=== PATIENT | male | born 1970 | race Caucasian/White ===

== ENCOUNTER 2019-08-11 21:49 | Inpatient (IN) | payer OTHER, SELFPAY ==
[2019-08-11 21:51] VITALS: BP 142/90; PULSE 72; RESP 17; TEMP 39.4; O2SAT 91; BMI 56.7
[2019-08-11 22:12] VITALS: BP 120/76; PULSE 122; RESP 20; O2SAT 88
[2019-08-11 22:13] VITALS: PULSE 120; O2SAT 94
--- NOTE | 2019-08-11 22:15 | ED.RN ---
RN CALLED FOR EKG, NO OLD EKGS IN MUSE
[2019-08-11] MEDS: Ondansetron 4 MG/2 ML Vial IV (22:51)
[2019-08-11] MEDS: Morphine 4 MG/ML Syringe IV (22:51)
[2019-08-11 23:03] LABS: Absolute Lymphocyte Count 1.01 X10^3/uL (0.83-4.51); Absolute Neutrophil Count 13.5 X10^3/uL (2.0-7.7); Basophil# 0.03 X10^3/uL; Basophil% 0.2 % (0-1); Eosinophil# 0.01 X10^3/uL; Eosinophils% 0.1 % (0-5); Hematocrit 41.8 % (40-54); Hemoglobin 14.1 g/dL (13.0-16.5); Lymphocyte # 1.01 X10^3/ul (4.0); Lymphocyte % 6.5 % (19-41); Mean Corp Hgb Conc 33.7 g/dL (32-36); Mean Corpuscular Hgb 28.8 pg (27.0-32.0); Mean Corpuscular Volume 85.3 fL (80-94); Mean Platelet Vol. 9.6 fl (6.2-12.0); Monocyte# 0.91 X10^3/uL; Monocyte% 5.9 % (0-10); NRBC Flagged by Analyzer 0 % (0-5); Neutrophil # 13.51 X10^3/uL (2.7-7.7); Neutrophil % 86.8 % (47-70); Platelet Count 191 K/mm3 (150-450); RBC Distribution Width CV 13.4 % (11.6-14.6); RBC Distribution Width SD 41.9 fl (35.1-43.9); White Blood Count 15.6 K/mm3 (4.4-11.0)
[2019-08-11 23:21] LABS: ALB/GLOB Ratio 0.9 RATIO (0.9-2.4); AST(SGOT) 15 U/L (15-37); Alanine Aminotransfer ALT/SGPT 17 U/L (16-61); Alkaline Phosphatase 72 U/L (45-117); Anion Gap 8 (5-15); BUN 14 mg/dL (7-18); BUN/Creat Ratio 11.4 RATIO (10-20); Calcium,Total 8.1 mg/dL (8.5-10.1); Chloride 102 mmol/L (98-107); Creatinine, Serum 1.23 mg/dL (0.70-1.30); EST Glomerular Filtration Rate 66 mL/min (>60); Est Glom Filt Rate - Afr Amer 80 mL/min (>60); Estimated Creatinine Clearance 77.37 ml/min; Globulin 3.5 g/dL (2.2-4.2); Glucose 108 mg/dL (74-106); Lipase 60 U/L (73-393); Potassium 3.6 mmol/L (3.5-5.1); Protein, Total 6.5 g/dL (6.4-8.2); Sodium Level 137 mmol/L (136-145)
[2019-08-11 23:27] VITALS: BP 142/116; PULSE 116; RESP 20; TEMP 38.2; O2SAT 93
[2019-08-11] MEDS: Acetaminophen 500 MG Tablet 1000 MG PO (23:34)
--- NOTE | 2019-08-11 23:36 | RAD_ITS ---
STUDY: X-RAY CHEST REASON FOR EXAM: Male, 48 years old. Fever. TECHNIQUE: Single AP portable view of the chest. COMPARISON: Prior comparison studies are not available for review at this time. FINDINGS: Cardiac monitoring leads are present. The lungs are expanded. There is right upper lobe and right lower lobe airspace consolidation likely representing pneumonia. There may be small right-sided pleural effusion. Bronchovascular markings are prominent in both lungs. There is mild cardiac enlargement. Normal mediastinum and willard. There is prominence of the pulmonary hilar arteries with peripheral pulmonary vascular congestion. Normal visualized aortic arch and descending thoracic aorta. Normal visualized thoracic spine. Normal visualized ribs, clavicles, and shoulders. There is no demonstrated abnormality of the visualized soft tissue structures of the upper abdomen. RAD/Chest 1 View (Portable) IMPRESSION: 1. Right-sided airspace consolidation likely representing pneumonia. 2. Cardiomegaly and mild pulmonary congestion. Electronically Signed: Rochelle Cooney MD at 0:21 EST , Service support ,
--- NOTE | 2019-08-11 23:38 | ED.DCSUM_ITS ---
- ER Visit Summary Date of Service: 08/11/19 Chief Complaint: Fever, abdominal pain History of Present Illness: The patient is a 48 M presenting with febrile illness and abdominal pain. He states his abdominal pain started around 4 AM this morning when he had a large bowel movement. He states he drank tea for constipation and then had a large bowel movement around 4 AM. He had another loose stool around 8 PM. He states when he had the bowel movements he had diffuse abdominal pain. He denies nausea or vomiting. Denies blood in his stool. He has had fever and chills. He has had mild shortness of breath and cough. Denies other complaints. Physical Examination: Vitals are stable. Temperature 103. Heart rate 120. Alert no acute distress. HEENT exam is unremarkable. Neck is supple. No meningismus Lungs are clear and equal bilaterally. Heart is irregularly irregular Abdomen is soft obese, suprapubic tenderness with no rebound or guarding Extremities are unremarkable. Skin is warm and dry. No focal neurologic deficit. Remainder of exam is unremarkable. Emergency Department Course and Treatment: EKG is A. fib rate of 111. Patient was given IV fluids, Tylenol. He was given morphine, Zofran IV. CBC shows white count 15.6. Chemistry is unremarkable. Total bili 1.6. Lipase is 60. Troponin 0.016. CT abdomen pelvis is pending at this time and will be checked out to the oncoming physician. Disposition: Pending Impression: Febrile illness, abdominal pain, new onset A. fib This note was generated with [employer] dictation software. It may contain incorrect words, spelling, and punctuation that were not noted in review of the chart prior to signing ED Disposition - Plan for ED Patient: Referrals: Guicho Floyd MD [Primary Care Provider] -
--- NOTE | 2019-08-11 23:38 | EKG12_ITS ---
Test Reason : HR Blood Pressure : / mmHG Vent. Rate : 111 BPM Atrial Rate : 110 BPM P-R Int : 000 ms QRS Dur : 090 ms QT Int : 322 ms P-R-T Axes : 000 037 032 degrees QTc Int : 437 ms Atrial fibrillation with rapid ventricular response Abnormal ECG Confirmed by DELMER WEIR, SIGRID ([id number]), film and video editor DEYVI SANTILLAN ([id number]) on 08/17/2019 11:48:38 AM Referred By: JESSICA Confirmed By:NEENA DOWELL MD
[2019-08-12] VITALS (20 sets, daily range): BP systolic 86–120; BP diastolic 39–65; PULSE 75–107; RESP 16–22; TEMP 36.4–38.7; O2SAT 88–98; BMI 56.7
[2019-08-12] MEDS: 0.9% Normal Saline 1,000 ML 999 ML IV ×2 (00:10→01:25)
--- NOTE | 2019-08-12 00:16 | PCM.HP.STD ---
Problem List (1) Atrial fibrillation with RVR Status: Acute (2) Pneumonia Status: Acute History of Present Illness Date of Admission: 08/12/19 Chief Complaint: abdominal pain The patient is a 48 year old M with a significant history of hypertension and bilateral lower extremity edema who presented to the emergency department with persistent excruciating abdominal pain. His abdominal pain is located at his lower abdomen underneath his abdominal fold; into the center. His pain started several hours before presentation. He pain started around 4 AM on the day of presentation. His pain started after having a bowel movement and getting up from the commode. Later his pain improved with adjusting himself in the recliner. Later on in the day of presentation around 4 PM he had another bowel movement and when he stood up from the commode his pain re-occurred. Otherwise he denies any other aggravating factor to the pain. Further he reports a subjective fever with chills and rigors. He has some shortness of breath which he correlates with abdominal pain. Also he has palpitations. In the past when he had a flu or abdominal upset he felt palpitations. At the emergency department patient was found to be in A. fib with RVR. Chest x-ray was remarkable for right-sided airspace consolidation. Abdomen and pelvis CT was remarkable for acute inflammation and diverticulitis involving the sigmoid with some microperforation; as well as bilateral basilar airspace disease. Further, the abdomen and pelvis CT showed free fluid suggesting diarrhea and possible additional infection. Past Medical History Medical History: Medical History (Last Reviewed 08/12/19 @ 04:29 by Shade Candelaria MD) HTN (hypertension) I10 Allergies cephalexin [From Keflex] Allergy (Verified 08/11/19 21:50) Rash Home Medications: Ambulatory Orders Medication Instructions Recorded Amlodipine [Norvasc] 10 mg PO DAILY 08/11/19 Furosemide [Lasix] 40 mg PO DAILY 08/11/19 Lisinopril [Zestril] 40 mg PO DAILY 08/11/19 Surgical History: tonsillectomy Lives: With Family Smoking Status: Never smoker Alcohol: None - *Family History Maternal History Items: Heart Disease Paternal History Items: - - His father and 2 sisters had A. fib. Also he has 2 sisters who has cancer. Review of Systems Constitutional: Reports: Chills, Fever - Subjective. Denies: Weight Change HEENT: Denies: Head Aches, Sinus Congestion, Sinus Drainage Cardiovascular: Denies: Chest Pain, Palpitations Respiratory: Reports: Shortness of Breath. Denies: Cough, Shortness of breath at rest, Sputum production Gastrointestinal: Reports: Abdominal Pain. Denies: Nausea, Vomiting Genitourinary: Denies: Dysuria Musculoskeletal: Denies: Joint Pain, Joint Tenderness Skin: Denies: Rash, Wounds Neurological: Denies: Numbness, Tingling, Focal weakness Psychiatric: Denies: Anxiety, Depression, Homicidal Ideations, Suicidal Ideations Hematologic/ Lymphatic: Denies: Easy Bruising, Easy Bleeding VTE Information - Inpt Only VTE Present on Admission: No VTE Mechan Device Prophylaxis: None VTE Pharm Prophylaxis ordered?: Yes Patient Problems: Active and Suspected Problems (Last Reviewed 08/12/19 @ 02:48 by Shade Candelaria MD) Atrial fibrillation with RVR (Acute) Pneumonia (Acute) - Physical Exam Vitals/I&O's: Vital Signs Temp Pulse Resp BP Pulse Ox 101.6 F H 107 H 22 H 107/62 92 08/12/19 00:11 08/12/19 00:11 08/12/19 00:11 08/12/19 00:11 08/12/19 00:11 Oxygen Flow Rate (L/min) 2 Oxygen Delivery Method Nasal Cannula Weight: 184.5 kg Body Mass Index (BMI) 56.7 General: Alert, Oriented x3, Cooperative, - - Morbidly obese HEENT: Atraumatic, PERRLA, EOMI, Normocephalic Neck: Supple, No JVD, Negative Carotid Bruits Lungs: No rhonchi, No wheeze, Rales - Right lower lung chawla, Tachypneic Cardiovascular: Normal S1, Normal S2, No murmurs, Irregular Rate, Tachycardic Abdomen: Bowel Sounds Present, Soft, Tender Extremities: No edema, Capillary Refill Less than 3 Seconds Skin: No rashes, No breakdown, - - Erythema of the abdominal folds Musculoskeletal: No Tenderness to Palpation of Joints or Extremities Neurological: Cranial nerves II-XII grossly intact Psych/Mental Status: Normal Affect, Appropriate Microbiology Past 72 Hours 08/11/19 23:30 Mucosa - Nose Influenza Types A,B Direct FA ([facility]) - Final Laboratory Results 08/11/19 23:00: WBC 15.6 H, RBC 4.90, Hgb 14.1, Hct 41.8, MCV 85.3, MCH 28.8, MCHC 33.7, RDW Std Deviation 41.9, RDW Coeff of Tg 13.4, Plt Count 191, MPV 9.6, Immature Gran % (Auto) 0.500, Neut % (Auto) 86.8 H, Lymph % (Auto) 6.5 L, [place] % (Auto) 5.9, Eos % (Auto) 0.1, Baso % (Auto) 0.2, Absolute Neuts (auto) 13.5 H, Absolute Lymphs (auto) 1.01, Nucleated RBC % 0 08/11/19 23:00: Sodium 137, Potassium 3.6, Chloride 102, Carbon Dioxide 27.0, Anion Gap 8, BUN 14, Creatinine 1.23, Estim Creat Clear Calc 77.37, Est GFR (MDRD) Af Amer 80, Est GFR (MDRD) Non-Af 66, BUN/Creatinine Ratio 11.4, Glucose 108 H, Calcium 8.1 L, Total Bilirubin 1.60 H, AST 15, ALT 17, Alkaline Phosphatase 72, Troponin I 0.016, Total Protein 6.5, Albumin 3.0 L, Globulin 3.5, Albumin/Globulin Ratio 0.9, Lipase 60 L 08/11/19 23:47: Lactic Acid Pending Current Medications Sodium Chloride () 1,000 mls @ 999 mls/hr IV .Q1H1M ONE Stop: 08/12/19 00:36 Last Admin: 08/12/19 00:10 Dose: 999 mls/hr Documented by: Assessment/Plan All Active Problems (Last Reviewed 08/12/19 @ 02:48 by Shade Candelaria MD) Atrial fibrillation with RVR (Acute) Pneumonia (Acute) The patient is a 48 year old M with a significant history of hypertension and bilateral lower extremity edema who presented to the emergency department with persistent excruciating abdominal pain; subjective fever; chills and shortness of breath and found to have maximal temperature of 101.6F; A. fib with RVR and tachypnea with respiratory rate more than 20; as well as leukocytosis; and with radiographic evidence of a pneumonia, colitis, sigmoid diverticulitis with micro perforation, consistent with sepsis secondary to diverticulitis; colitis and community acquired pneumonia. Sepsis secondary to diverticulitis with microperforation; colitis and community-acquired pneumonia Lactic acid: 1.1 Highest respiratory rate of 22 A. fib with highest ventricular rate of around 122 Blood culture ?2 is pending Chest x-ray: Right sided airspace consolidation likely representing pneumonia. Cardiomegaly and mild pulmonary congestion chest x-ray was independently reviewed. I agree with the radiologist interpretation. Respiratory Gram stain and culture pending Antibiotics: Levaquin and Flagyl was started at the emergency department; continued. Of note patient has an allergy to cephalosporins. IV hydration: Normal saline 2 L bolus was ordered at the emergency department. Legionella antigen screen and Strep antigen ordered Community-acquired pneumonia Levaquin and metronidazole as above. Sigmoid diverticulitis with microperforation; and colitis Levaquin imaging results as above. General surgery consult. Anticipate conservative therapy for now. A. fib with RVR Discussed the case with Dr. Rodríguez, canal equipment maintenance supervisor. IV fluids for now. If rate remains uncontrolled and blood pressure is marginal will consider amiodarone. If rate is uncontrolled and blood pressure cannot tolerate will try Cardizem. With a bolus of 2500 ml HR is controlled. [id number] Score = 1 (hypertension). Daily aspirin ordered. We will get an echocardiogram. Will supplement potassium. Will check magnesium. Check TSH. Trend BMP. Inpatient cardiology consult. Morbid obesity Reportedly he lost about 100 pounds through dieting. Diet exercise discussed. DVT prophylaxis Lovenox 40 mg subcutaneous twice daily for now; adjusted for weight. Code Visit Inpatient E&M: 77942 Init Hosp L3
[2019-08-12 00:22] LABS: Lactic Acid 1.1 mmol/L (0.4-1.9)
[2019-08-12] MEDS: levoFLOXacin IV 750 MG/150 ML BAG 100 MG IV ×2 (00:42→21:46)
--- NOTE | 2019-08-12 01:00 | ED.RN ---
DR RODRIGUES PAGED
--- NOTE | 2019-08-12 01:05 | ED.RN ---
DR JARAMILLO CALLED BACK FOR DR CARMICHAEL
[2019-08-12] MEDS: metroNIDAZOLE 500 MG/100 ML BAG 100 MG IV ×5 (02:37→23:43)
--- NOTE | 2019-08-12 02:47 | ECHOCS_ITS ---
Reason For Study: AFIB-FLUTTER Procedure This was a 2D Doppler, Color Flow transthoracic echocardiogram. The study was technically difficult. Exam performed portable in patient room. Left Ventricle Moderately dilated left ventricle. The estimated ejection fraction is 65 %. Unable to assess diastolic dysfunction due to arrhythmia. No regional wall motion abnormalities noted. Right Ventricle Normal size and thickness. Normal systolic function. Atria The left atrium is severely enlarged. The right atrium is moderately enlarged. Normal atrial septum. Mitral Valve The mitral valve is structurally normal. No prolapse or stenosis seen. Tricuspid Valve Normal tricuspid valve. Unable to estimate RV systolic pressure due to insufficient tricuspid regurgitant envelope. Aortic Valve Normal aortic valve. Trisinus/trileaflet aortic valve. Pulmonic Valve The pulmonic valve is not well visualized. Great Vessels Normal aortic root. Normal arch. Normal inferior vena cava. Pericardium/Pleural No pericardial effusion. Medication Diluted definity 4ml given slow IV push to enhance endocardial definition. MMode/2D Measurements & Calculations LVIDd: 5.9 cm IVSd: 1.0 cm Ao root diam: 3.8 cm LVIDs: 4.1 cm LVPWd: 1.1 cm FS: 30.7 % LAV(MOD-bp): 90.0 ml LVAd ap4: 35.8 cm2 SV(MOD-sp4): 80.0 ml LAV(MOD-bp) Indexed: 30.9 ml/m2 EDV(MOD-sp4): 123.0 ml LAV(MOD-sp2): 89.3 ml EDV(sp4-el): 131.3 ml LAV(MOD-sp4): 88.2 ml LVAs ap4: 19.2 cm2 ESV(MOD-sp4): 43.0 ml ESV(sp4-el): 45.0 ml EF(MOD-sp4): 65.1 % EF(sp4-el): 65.7 % SV(sp4-el): 86.3 ml LA A4 area: 27.6 cm2 LA dimension(2D): 5.4 cm RA A4 area: 23.0 cm2 Doppler Measurements & Calculations MV E max rosaline: 109.0 cm/sec Ao V2 max: 147.1 cm/sec LV V1 max: 113.5 cm/sec Ao max P.9 mmHg LV V1 max P.2 mmHg PA V2 max: 104.0 cm/sec Interpretation Summary Moderately dilated left ventricle. The estimated ejection fraction is 65 %. Unable to assess diastolic dysfunction due to arrhythmia. The left atrium is severely enlarged. The right atrium is moderately enlarged. Unable to estimate RV systolic pressure due to insufficient tricuspid regurgitant envelope. PT appears to be in atrial fibrillation. The study was technically difficult. Contrast injection was performed. There is no comparison study available. Ordering Physician: Shade Candelaria Referring Physician: JETT KELLEY Performed By: Radha Mcmillan RDCS
[2019-08-12] MEDS: Acetaminophen 325 MG Tablet 650 MG PO ×3 (03:32→21:50)
[2019-08-12 05:34] LABS: Absolute Lymphocyte Count 1.34 X10^3/uL (0.83-4.51); Absolute Neutrophil Count 12.5 X10^3/uL (2.0-7.7); Basophil# 0.03 X10^3/uL; Basophil% 0.2 % (0-1); Eosinophil# 0.01 X10^3/uL; Eosinophils% 0.1 % (0-5); Hematocrit 39.9 % (40-54); Lymphocyte # 1.34 X10^3/ul (4.0); Lymphocyte % 8.9 % (19-41); Mean Corp Hgb Conc 32.6 g/dL (32-36); Mean Corpuscular Hgb 28.6 pg (27.0-32.0); Mean Corpuscular Volume 87.9 fL (80-94); Monocyte% 7.3 % (0-10); NRBC Flagged by Analyzer 0 % (0-5); Neutrophil # 12.47 X10^3/uL (2.7-7.7); Neutrophil % 82.8 % (47-70); Platelet Count 168 K/mm3 (150-450); RBC Distribution Width CV 13.6 % (11.6-14.6); RBC Distribution Width SD 43.3 fl (35.1-43.9); Red Blood Count 4.54 M/mm3 (4.6-6.2); White Blood Count 15.1 K/mm3 (4.4-11.0)
[2019-08-12 06:02] LABS: Anion Gap 6 (5-15); BUN 16 mg/dL (7-18); BUN/Creat Ratio 12.5 RATIO (10-20); Calcium,Total 7.4 mg/dL (8.5-10.1); Chloride 104 mmol/L (98-107); Creatinine, Serum 1.28 mg/dL (0.70-1.30); EST Glomerular Filtration Rate 63 mL/min (>60); Est Glom Filt Rate - Afr Amer 77 mL/min (>60); Estimated Creatinine Clearance 74.35 ml/min; Glucose 102 mg/dL (74-106); Magnesium 1.8 mg/dL (1.6-2.6); Potassium 3.6 mmol/L (3.5-5.1); Sodium Level 138 mmol/L (136-145); Thyroid Stim Hormone (TSH) 2.85 uIU/mL (0.358-3.74)
--- NOTE | 2019-08-12 06:10 | CON.PCM_ITS ---
Problem List (1) Perforation of sigmoid colon due to diverticulitis Status: Acute Reason for Consult Date of Consultation: 08/12/19 History of Present Illness: The patient is a 48 year old M who presents to the hospital last evening with acute onset of low abdominal pain. Complains of a sudden onset of low mid abdominal pain that occurred much earlier in the day and presented to the ER late last night. Findings include right middle and lower lobe suspected pneumonia. Fluid-filled bowel. Microperforation on the sigmoid colon felt to be secondary to diverticulitis. Solitary incidental gallstone identified. The patient states he is never had a colonoscopy. He states he is never had previous diverticulitis. He has had previous pneumonias however but None for the past 10 years. He denies tobacco use. Pertinent medical comorbidities include super morbid obesity with a body weight of 406 pounds x 56.7. He has a history of atrial fibrillation with RVR but he is not on home anticoagulation. He denies diabetes States that he still has abdominal discomfort feels like it is very deep-seated low in the abdomen but he thinks is slightly better than when it initially occurred. His laboratory and presentation demonstrate a white count of 15.6 and currently is 15.1. Hemoglobin 13 and hematocrit 39.9. He has a left shift with 82% neutrophils. His BUN is 14 and creatinine 1.23. Lactic acid 1.1. Total bilirubin was 1.6 with remainder of his liver function tests normal Past Medical History Medical History: Medical History (Last Reviewed 08/12/19 @ 04:29 by Shade Candelaria MD) HTN (hypertension) I10 Allergies cephalexin [From Keflex] Allergy (Verified 08/11/19 21:50) Rash Home Medications: Ambulatory Orders Medication Instructions Recorded Amlodipine [Norvasc] 10 mg PO DAILY 08/11/19 Furosemide [Lasix] 40 mg PO DAILY 08/11/19 Lisinopril [Zestril] 40 mg PO DAILY 08/11/19 Surgical History: tonsillectomy Lives: With Family Smoking Status: Never smoker Alcohol: None - *Family History Maternal History Items: Heart Disease Paternal History Items: - - His father and 2 sisters had A. fib. Also he has 2 sisters who has cancer. Review of Systems Constitutional: Denies: Night Sweats HEENT: Denies: Difficulty Swallowing Cardiovascular: Reports: - - Denies any significant shortness of breath. Denies: Chest Pain Gastrointestinal: Reports: Abdominal Pain. Denies: Melena Skin: Reports: - - Chronic bilateral lower extremity swelling Patient Problems: Active and Suspected Problems (Last Reviewed 08/12/19 @ 04:29 by Shade Candelaria MD) Atrial fibrillation with RVR (Acute) Pneumonia (Acute) Perforation of sigmoid colon due to diverticulitis (Acute) - Physical Exam Vitals/I&O's: Vital Signs Temp Pulse Resp BP Pulse Ox 98.8 F 94 18 97/52 L 98 08/12/19 04:15 08/12/19 04:15 08/12/19 04:15 08/12/19 04:15 08/12/19 04:15 Oxygen Flow Rate (L/min) 3 Oxygen Delivery Method Nasal Cannula Weight: 406 lb 8.518 oz Body Mass Index (BMI) 56.7 Intake and Output for Last 24 Hours 08/10/19 08/11/19 08/12/19 23:59 23:59 23:59 Intake Total 2750 / 2750 Balance 2750 / 2750 General: Alert, Oriented x3, Cooperative, No apparent distress HEENT: Atraumatic Oral: Moist Mucosa Lungs: Clear to auscultation Cardiovascular: Regular rate, Regular Rhythm Abdomen: Soft, Hypoactive Bowel Sounds - Unable to determine any internal abdominal organs secondary to body habitus. No mass or rebound or guarding but clinically very difficult examination Skin: - - Chronic bilateral extremity venous stasis changes with nonpitting edema and hyperpigmentation Neurological: - - Cognition intact Psych/Mental Status: Normal Affect Microbiology Past 72 Hours 08/11/19 23:30 Mucosa - Nose Influenza Types A,B Direct FA ([facility]) - Final Laboratory Results 08/11/19 23:00: WBC 15.6 H, RBC 4.90, Hgb 14.1, Hct 41.8, MCV 85.3, MCH 28.8, MCHC 33.7, RDW Std Deviation 41.9, RDW Coeff of Tg 13.4, Plt Count 191, MPV 9.6, Immature Gran % (Auto) 0.500, Neut % (Auto) 86.8 H, Lymph % (Auto) 6.5 L, [place] % (Auto) 5.9, Eos % (Auto) 0.1, Baso % (Auto) 0.2, Absolute Neuts (auto) 13.5 H, Absolute Lymphs (auto) 1.01, Nucleated RBC % 0 08/11/19 23:00: Sodium 137, Potassium 3.6, Chloride 102, Carbon Dioxide 27.0, Anion Gap 8, BUN 14, Creatinine 1.23, Estim Creat Clear Calc 77.37, Est GFR (MD RD) Af Amer 80, Est GFR (MDRD) Non-Af 66, BUN/Creatinine Ratio 11.4, Glucose 108 H, Calcium 8.1 L, Total Bilirubin 1.60 H, AST 15, ALT 17, Alkaline Phosphatase 72, Troponin I 0.016, Total Protein 6.5, Albumin 3.0 L, Globulin 3.5, Albumin/Globulin Ratio 0.9, Lipase 60 L 08/11/19 23:47: Lactic Acid 1.1 08/12/19 04:55: WBC 15.1 H, RBC 4.54 L, Hgb 13.0, Hct 39.9 L, MCV 87.9, MCH 28.6, MCHC 32.6, RDW Std Deviation 43.3, RDW Coeff of Tg 13.6, Plt Count 168, MPV 10.0, Immature Gran % (Auto) 0.700, Neut % (Auto) 82.8 H, Lymph % (Auto) 8.9 L, [place] % (Auto) 7.3, Eos % (Auto) 0.1, Baso % (Auto) 0.2, Absolute Neuts (auto) 12.5 H, Absolute Lymphs (auto) 1.34, Nucleated RBC % 0 08/12/19 04:55: Sodium 138, Potassium 3.6, Chloride 104, Carbon Dioxide 28.0, Anion Gap 6, BUN 16, Creatinine 1.28, Estim Creat Clear Calc 74.35, Est GFR (MDRD) Af Amer 77, Est GFR (MDRD) Non-Af 63, BUN/Creatinine Ratio 12.5, Glucose 102, Calcium 7.4 L, Magnesium 1.8, TSH 2.85 Current Medications Acetaminophen (Tylenol) 650 mg PO Q6H PRN PRN PRN Reason: Pain Score 1-3/Temp > 100.7 F Last Admin: 08/12/19 03:32 Dose: 650 mg Documented by: Amlodipine Besylate (Norvasc) 10 mg PO DAILY [facility] Aspirin (Aspirin, Baby) 81 mg PO DAILY@0800 [facility] Enoxaparin Sodium (Lovenox) 40 mg SC BID [facility] Glucagon () 1 mg IM .X1 PRN PRN Reason: Hypoglycemia Guaifenesin (Mucinex) 1,200 mg PO BID [facility] Levofloxacin (Levaquin Iv) 750 mg in 150 mls @ 100 mls/hr IV Q24@2200 [facility] Metronidazole (Flagyl) 500 mg in 100 mls @ 100 mls/hr IV Q8 [facility] Dextrose (Dextrose 10%-Water) 250 mls @ 999 mls/hr IV .Q16M PRN; Protocol PRN Reason: HYPOGLYCEMIA Lisinopril (Zestril) 40 mg PO DAILY [facility] Morphine Sulfate () 4 mg IV Q3H PRN PRN PRN Reason: Pain Score 6-10/10 Nystatin (Mycostatin) 1 applic TOPICAL BID [facility]; Protocol Ondansetron HCl (Zofran) 4 mg IV Q8H PRN PRN PRN Reason: NAUSEA/VOMITING Oxycodone HCl (Oxyir) 10 mg PO Q4H PRN PRN PRN Reason: Pain Score 4-5/10 Assessment/Plan All Active Problems (Last Reviewed 08/12/19 @ 04:29 by Shade Candelaria MD) Atrial fibrillation with RVR (Acute) Pneumonia (Acute) Perforation of sigmoid colon due to diverticulitis (Acute) 48-year-old gentleman with findings suggested fluid-filled bowel and acute sigmoid diverticular perforation with incidental gallstone. His body habitus of 406 pounds with a BMI of 56.7 precludes thoughts of operative intervention. I would recommend patient mobilization and incentive spirometry. I will continue strict bowel rest. I am not proposing at this moment any type of endoscopic evaluation for concern of worsening his current pattern. I would agree with continuing antibiotics with weight-based dosing. If he would require urgent abdominal surgery this may need to be performed at a [facility]ariat[facility] center of excellence. We will follow with you. Oscar Michael M.D., F.A.C.S.
--- NOTE | 2019-08-12 08:51 | CON.PCM_ITS ---
Problem List (1) Atrial fibrillation with RVR Status: Acute Reason for Consult Date of Consultation: 08/12/19 Reason for Consultation: Atrial fibrillation with RVR History of Present Illness: The patient is a 48 year old M nondiabetic, morbidly obese, with a history of hypertension, unknown cholesterol, denies obstructive sleep apnea, possibly with undiagnosed atrial fibrillation based upon his history, who presents to the em ergency room with severe middle and left lower quadrant abdominal pain. A CT scan was obtained in the ER which showed the following results: 1. Acute inflammation and diverticulitis involving the sigmoid colon. There are signs of microperforation with tiny collections of gas adjacent to the abnormal sigmoid colon. 2. No CT evidence for abscess. 3. Fluid-filled colon suggesting diarrhea and possible additional infection. 4. Cholelithiasis. 5. Bilateral basilar airspace disease possibly representing pneumonia In addition the patient was found to be in atrial fibrillation with rapid ventri cular response and mildly hypotensive. Patient was given IV fluids, and his heart rate gradually improved. Upon further history the patient states that he is aware when he goes in and out of atrial fibrillation, and has had episodes of these sensations for a number of years but never sought medical attention. He denies any previous cardiac catheterization, abnormal stress test, chest pain, angina or shortness of breath either previous to or during his atrial fibrillation. Patient feels much better with his heart going slower, and remains in atrial fibrillation by telemetry. His EKG showed atrial fibrillation with rapid ventricular response, no acute changes. Troponin is negative x1. Echocardiogram is pending. He is currently hemodynamically stable. [] Past Medical History Allergies/Adverse Reactions: Allergies cephalexin [From Keflex] Allergy (Verified 08/11/19 21:50) Rash Home Medications: Ambulatory Orders Medication Instructions Recorded Amlodipine [Norvasc] 10 mg PO DAILY 08/11/19 Furosemide [Lasix] 40 mg PO DAILY 08/11/19 Lisinopril [Zestril] 40 mg PO DAILY 08/11/19 Surgical History: tonsillectomy - *Family History Maternal History Items: Heart Disease, Hypertension Paternal History Items: - - His father and 2 sisters had A. fib. Also he has 2 sisters who has cancer. Lives: With Family Smoking Status: Never smoker Alcohol: None Review of Systems - Review of Systems General: Denies: Fever, Night Sweats, Fatigue Cardiovascular: Denies: Chest Discomfort, Shortness of Breath, Orthopnea, PND, Peripheral Edema, Palpitations, Lightheadedness, Dizziness, Near Syncope, Syncope Respiratory: Denies: Cough, Sputum Production, Hemoptysis Gastrointestinal: Reports: Abdominal Discomfort. Denies: Hematemesis, Hematochezia, Melena Genitourinary: Denies: Dysuria, Hematuria Skin: Denies: Rash Subjectve: Patient laying in bed, no acute distress. Objective: Vital Signs Temp Pulse Resp BP Pulse Ox 98.5 F 80 18 108/61 92 08/12/19 06:15 08/12/19 06:50 08/12/19 06:15 08/12/19 06:15 08/12/19 07:34 Oxygen Flow Rate (L/min) 2 Oxygen Delivery Method Nasal Cannula Weight: 406 lb 8.518 oz Body Mass Index (BMI) 56.7 Intake and Output for Last 24 Hours 08/10/19 08/11/19 08/12/19 23:59 23:59 23:59 Intake Total 2850 / 2850 Output Total 0 / 0 Balance 2850 / 2850 General: Awake, Alert, Oriented x 3 HEENT: PERRL, EOMI, Sclera Non Icteric Neck: Supple, Good ROM, No Lymph Node Enlargement Lungs: Clear to auscultation Cardiovascular: Irregular Rhythm, Normal S1, Normal S2, No Murmurs, No Rubs, No Gallops Vascular: No Carotid Bruits, Normal Femoral Pulses, Normal Radial Pulses, Normal Dorsalis Pedal Pulse, Normal Posterior Tibial Pulses Abdomen: Bowel Sounds Present, Soft, Non Tender, No HSM, No Organomegaly Extremities: No Cyanosis, No Clubbing, No edema Neurological: No Focal Motor or Sensory Deficit 08/11/19 23:00: WBC 15.6 H, RBC 4.90, Hgb 14.1, Hct 41.8, MCV 85.3, MCH 28.8, MCHC 33.7, Plt Count 191, MPV 9.6, Immature Gran % (Auto) 0.500, Neut % (Auto) 86.8 H, Lymph % (Auto) 6.5 L, [place] % (Auto) 5.9, Eos % (Auto) 0.1, Baso % (Auto) 0.2, Absolute Neuts (auto) 13.5 H, Nucleated RBC % 0 08/11/19 23:00: Sodium 137, Potassium 3.6, Chloride 102, Carbon Dioxide 27.0, Anion Gap 8, BUN 14, Creatinine 1.23, Est GFR (MDRD) Af Amer 80, Est GFR (MDRD) Non-Af 66, BUN/Creatinine Ratio 11.4, Glucose 108 H, Calcium 8.1 L, Total Bilirubin 1.60 H, Troponin I 0.016 08/11/19 23:47: Lactic Acid 1.1 08/12/19 04:55: WBC 15.1 H, RBC 4.54 L, Hgb 13.0, Hct 39.9 L, MCV 87.9, MCH 28.6, MCHC 32.6, Plt Count 168, MPV 10.0, Immature Gran % (Auto) 0.700, Neut % (Auto) 82.8 H, Lymph % (Auto) 8.9 L, [place] % (Auto) 7.3, Eos % (Auto) 0.1, Baso % (Auto) 0.2, Absolute Neuts (auto) 12.5 H, Nucleated RBC % 0 08/12/19 04:55: Sodium 138, Potassium 3.6, Chloride 104, Carbon Dioxide 28.0, Anion Gap 6, BUN 16, Creatinine 1.28, Est GFR (MDRD) Af Amer 77, Est GFR (MDRD) Non-Af 63, BUN/Creatinine Ratio 12.5, Glucose 102, Calcium 7.4 L, Magnesium 1.8 Rhythm: EKG: As above ECHO: Pending Stress Test: Cardiac Cath: PCI: CT Surgery: Holter monitor: EPS: PPM: CXR: Chest CT Scan: Assessment/Plan 1. Atrial fibrillation: The patient's heart rate is fairly well controlled with fluid rehydration as of this time. Patient states that he has had what he feels is palpitations in the past which may have been intermittent atrial fibrillation although he has never been officially diagnosed. His atrial fibrillation may have been exacerbated by his abdominal discomfort, and diverticular disease. I would not recommend full dose IV heparin at this time given a possibility of a microperforation on his CT scan. Patient's heart rate appears to be better controlled after IV fluid resuscitation however I would discontinue his amlodipine and switch him to Cardizem CD 180 mg p.o. daily for heart rate control. Should the patient have hypotension, as a result of his Cardizem or antihypertensive therapy, he may benefit from IV amiodarone therapy for heart rate control and possible chemical cardioversion. In addition I recommended he obtain a 2D echo with Doppler to determine his LV function and pulmonary pressures. If this is normal, and if his second troponin is negative, I would then recommend a dobutamine echocardiogram for cardiac risk stratification given his atrial fibrillation, age, hypertension, and possible need for abdominal surgery. If his stress test is grossly abnormal, he may require a diagnostic coronary angiogram at some point. In addition I recommend checking his TSH and T4. 2. Obesity: The patient may have undiagnosed obstructive sleep apnea which can be worked up as an outpatient. 3. Would recommend obtaining a fasting lipid profile to complete his work-up. 4. Thank you very much for the opportunity to participate in the cardiac care of your patient. Consultation time took place between 730 and 8 AM. Code Visit Inpatient E&M: 93840 Init Hosp L2
--- NOTE | 2019-08-12 08:57 | STEWCON_ITS ---
Reason For Study: Atrial Fibrillation Stress Results Protocol: Dobutamine Stress Echo With Definity Maximum Predicted HR: 171 bpm Target HR: 145 bpm % Maximum Predicted HR: 94 % DurationHeart Rate Stage (mm:ss) (bpm) BP Comment Baseline 100 130/74No Chest Pain; 4.5 ML Diluted Definity Given DSE 10 MCG 3:00 139 144/73No Chest Pain DSE 20 MCG 1:42 160 141/85No Chest Pain Recovery 108 133/82No Chest Pain Stress Duration: 4:42 mm:ss Maximum Stress HR: 160 bpm METS: 1 Baseline Echocardiogram Findings The estimated ejection fraction is 65 %. Stress Echo Wall motion Data Resting WM Intermediate WM Stress WM Resting Wall Motion Wall Motion Stress No regional wall motion No regional wall motion abnormalities noted. abnormalities noted. EKG Data Atrial fibrillation with controlled ventricular response. The patient was titrated from 10 mcg to a maximum of 20 mcg of dobutamine during the stress. The maximum heart rate attained was 164 beats per minute. This was 95% of maximum predicted heart rate. During dobutamine infusion, there were no ST or T wave changes noted to suggest ischemia. No clinical angina was noted. Interpretation Summary The estimated ejection fraction is 65 %. Normal, adequate, dobutamine echocardiogram. Negative for ischemia by EKG and echocardiographic criteria. No anginal symptoms noted. Baseline atrial fibrillation with controlled ventricular response with rare PVCs during infusion which is a nonspecific finding. Test terminated due to the attainment of target heart rate. Final LVEF is 75%. Decreased sensitivity due to poor echo windows requiring Definity agent. Test patient tolerated the procedure well. No complications. The study was technically difficult. Contrast injection was performed. Ordering Physician: Earl Rodríguez Referring Physician: Guicho Floyd Performed By: Radha Mcmillan RDCS
[2019-08-12] MEDS: Lisinopril 40 MG Tablet PO (09:23)
[2019-08-12 10:23] LABS: Bacteria 0 SEEN /hpf (None Seen); Mucous, Urine 0 SEEN /hpf (<or=2+); Red Blood Cells-Urine 0 SEEN /hpf (0-5)
[2019-08-12 10:25] LABS: Color, Urine Amber (Yellow); Glucose, Dipstick Normal (Normal); Ketone-Dipstick 5 mg/dl (Negative); Leukocyte Esterase-Dipstick 25 /ul (Negative); Nitrite-Dipstick Positive (Negative); Occult Blood-Urine Negative /ul (Negative); Protein-Dipstick 30 mg/dl (Negative); Specific Gravity, Urine 1.015 (1.002-1.030); Urine Clarity Sl. Cloudy (Clear); Urine Urobilinogen 4 mg/dl (Normal)
--- NOTE | 2019-08-12 10:26 | PCM.PN.HOSP ---
Patient Problems: Active and Suspected Problems (Last Reviewed 08/12/19 @ 04:29 by Shade Candelaria MD) Atrial fibrillation with RVR (Acute) Pneumonia (Acute) Perforation of sigmoid colon due to diverticulitis (Acute) Subjective: Patient seen and examined. He was admitted with a complaint of lower abdominal pain. He was found to have. CT of the abdomen and pelvis diverticulitis involving the sigmoid colon with some microperforation. He also had right-sided airspace consolidation on chest x-ray and CT showed bilateral basilar airspace disease. He has been managed for this due to diverticulitis with microperforation and community-acquired pneumonia. He feels better today. Pain has improved. He denies any fever or chills, cough or chest pain, palpitation, dizziness, diarrhea vomiting. Review of systems otherwise negative. Of note, he also had A. 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 Tachycardia has now resolved and heart rate is down to the 80s. Vitals/I&O's: Vital Signs Temp Pulse Resp BP Pulse Ox 98.5 F 80 18 108/61 92 08/12/19 06:15 08/12/19 06:50 08/12/19 06:15 08/12/19 06:15 08/12/19 07:34 Oxygen Flow Rate (L/min) 2 Oxygen Delivery Method Nasal Cannula Weight: 406 lb 8.518 oz Body Mass Index (BMI) 56.7 Intake and Output for Last 24 Hours 08/10/19 08/11/19 08/12/19 23:59 23:59 23:59 Intake Total 2950 / 2950 Output Total 0 / 0 Balance 2950 / 2950 General: Alert, Oriented x3, Cooperative, No apparent distress, Non-Cooperative - super morbid obesity HEENT: Atraumatic, PERRLA, EOMI, Normocephalic Oral: Dry Mucosa Neck: Supple, No JVD, Negative Carotid Bruits Lungs: Clear to auscultation, Normal air movement, No rhonchi, No wheeze Cardiovascular: Regular rate, Regular Rhythm, Normal S1, Normal S2, No murmurs Abdomen: Bowel Sounds Present, Soft, Non Tender, Non-Distended, No Hepato-splenomegaly, Obese Extremities: No clubbing, No cyanosis, No edema, Capillary Refill Less than 3 Seconds Skin: No rashes, No breakdown Musculoskeletal: No Tenderness to Palpation of Joints or Extremities, No Muscle Wasting Lymphatic: No Cervical, Supraclavicular, or Inguinal Adenopathy Neurological: Cranial nerves II-XII grossly intact, Neuro grossly intact, Motor Exam 5/5 strength throughout Psych/Mental Status: Normal Affect, Appropriate, Alert and oriented to time, place, person, mood and affect Microbiology Past 72 Hours 08/11/19 23:30 Mucosa - Nose Influenza Types A,B Direct FA ([facility]ALL) - Final Laboratory Results 08/11/19 23:00: WBC 15.6 H, RBC 4.90, Hgb 14.1, Hct 41.8, MCV 85.3, MCH 28.8, MCHC 33.7, RDW Std Deviation 41.9, RDW Coeff of Tg 13.4, Plt Count 191, MPV 9.6, Immature Gran % (Auto) 0.500, Neut % (Auto) 86.8 H, Lymph % (Auto) 6.5 L, [place] % (Auto) 5.9, Eos % (Auto) 0.1, Baso % (Auto) 0.2, Absolute Neuts (auto) 13.5 H, Absolute Lymphs (auto) 1.01, Nucleated RBC % 0 08/11/19 23:00: Sodium 137, Potassium 3.6, Chloride 102, Carbon Dioxide 27.0, Anion Gap 8, BUN 14, Creatinine 1.23, Estim Creat Clear Calc 77.37, Est GFR (MDRD) Af Amer 80, Est GFR (MDRD) Non-Af 66, BUN/Creatinine Ratio 11.4, Glucose 108 H, Calcium 8.1 L, Total Bilirubin 1.60 H, AST 15, ALT 17, Alkaline Phosphatase 72, Troponin I 0.016, Total Protein 6.5, Albumin 3.0 L, Globulin 3.5, Albumin/Globulin Ratio 0.9, Lipase 60 L 08/11/19 23:47: Lactic Acid 1.1 08/12/19 04:55: WBC 15.1 H, RBC 4.54 L, Hgb 13.0, Hct 39.9 L, MCV 87.9, MCH 28.6, MCHC 32.6, RDW Std Deviation 43.3, RDW Coeff of Tg 13.6, Plt Count 168, MPV 10.0, Immature Gran % (Auto) 0.700, Neut % (Auto) 82.8 H, Lymph % (Auto) 8.9 L, [place] % (Auto) 7.3, Eos % (Auto) 0.1, Baso % (Auto) 0.2, Absolute Neuts (auto) 12.5 H, Absolute Lymphs (auto) 1.34, Nucleated RBC % 0 08/12/19 04:55: Sodium 138, Potassium 3.6, Chloride 104, Carbon Dioxide 28.0, Anion Gap 6, BUN 16, Creatinine 1.28, Estim Creat Clear Calc 74.35, Est GFR (MDRD) Af Amer 77, Est GFR (MDRD) Non-Af 63, BUN/Creatinine Ratio 12.5, Glucose 102, Calcium 7.4 L, Magnesium 1.8, TSH 2.85 08/12/19 04:55: Troponin I < 0.015 08/12/19 10:15: Urine Color Pending, Urine Clarity Pending, Urine pH Pending, Ur Specific [place] Pending, Urine Protein Pending, Urine Glucose (UA) Pending, Urine Ketones Pending, Urine Occult Blood Pending, Urine Nitrite Pending, Urine Bilirubin Pending, Urine Urobilinogen Pending, Ur Leukocyte Esterase Pending, Urine RBC Pending, Urine WBC Pending, Ur Squamous Epith Cells Pending, Urine Bacteria Pending, Urine Mucus Pending Diagnostic Data Chest X-Ray 08/11/19 23:36 IMPRESSION: 1. Right-sided airspace consolidation likely representing pneumonia. 2. Cardiomegaly and mild pulmonary congestion. Electronically Signed: Rochelle Cooney MD at 0:21 EST , Service support , Abdomen/Pelvis CT 08/12/19 22:41 IMPRESSION: 1. Acute inflammation and diverticulitis involving the sigmoid colon. There are signs of microperforation with tiny collections of gas adjacent to the abnormal sigmoid colon. 2. No CT evidence for abscess. 3. Fluid-filled colon suggesting diarrhea and possible additional infection. 4. Cholelithiasis. 5. Bilateral basilar airspace disease possibly representing pneumonia. N.B. : The above information has been verbally conveyed by Rochelle Cooney MD to Dr. Katlyn MD, on 08/12/2019 00:56:01 (ET). Electronically Signed: Rochelle Cooney MD at 0:58 EST , Service support , ADDENDUM: 08/12/19 0105 IMPRESSION: 1. Acute inflammation and diverticulitis involving the sigmoid colon. There are signs of microperforation with tiny collections of gas adjacent to the abnormal sigmoid colon. 2. No CT evidence for abscess. 3. Fluid-filled colon suggesting diarrhea and possible additional infection. 4. Cholelithiasis. 5. Bilateral basilar airspace disease possibly representing pneumonia. N.B. : The above information has been verbally conveyed by Rochelle Cooney MD to Dr. Katlyn MD, on 08/12/2019 00:56:01 (ET). Electronically Signed: Rochelle Cooney MD at 0:58 EST , Service support , Current Medications Acetaminophen (Tylenol) 650 mg PO Q6H PRN PRN PRN Reason: Pain Score 1-3/Temp > 100.7 F Last Admin: 08/12/19 03:32 Dose: 650 mg Documented by: Aspirin (Aspirin, Baby) 81 mg PO DAILY@0800 [facility] Diltiazem HCl (Cardizem Cd) 180 mg PO DAILY [facility] Enoxaparin Sodium (Lovenox) 40 mg SC BID [facility] Glucagon () 1 mg IM .X1 PRN PRN Reason: Hypoglycemia Guaifenesin (Mucinex) 1,200 mg PO BID [facility] Levofloxacin (Levaquin Iv) 750 mg in 150 mls @ 100 mls/hr IV Q24@2200 [facility] Dextrose (Dextrose 10%-Water) 250 mls @ 999 mls/hr IV .Q16M PRN; Protocol PRN Reason: HYPOGLYCEMIA Metronidazole (Flagyl) 500 mg in 100 mls @ 100 mls/hr IV Q6 [facility] Last Infusion: 08/12/19 09:13 Dose: Infused Documented by: Lisinopril (Zestril) 40 mg PO DAILY [facility] Last Admin: 08/12/19 09:23 Dose: 40 mg Documented by: Morphine Sulfate () 4 mg IV Q3H PRN PRN PRN Reason: Pain Score 6-10/10 Nystatin (Mycostatin) 1 applic TOPICAL BID BOSSMAN; Protocol Ondansetron HCl (Zofran) 4 mg IV Q8H PRN PRN PRN Reason: NAUSEA/VOMITING Oxycodone HCl (Oxyir) 10 mg PO Q4H PRN PRN PRN Reason: Pain Score 4-5/10 STROKE Vital Signs/Narrative: Vital Signs Pulse Pulse Ox 08/12/19 07:34 92 08/12/19 06:50 80 Medical Necessity - Tobacco Use Smoking Status: Never smoker Assessment/Plan All Active Problems (Last Reviewed 08/12/19 @ 04:29 by Shade Candelaria MD) Atrial fibrillation with RVR (Acute) Pneumonia (Acute) Perforation of sigmoid colon due to diverticulitis (Acute) 1. Sepsis due to diverticulitis with microperforation and community acquired pneumonia SIRS criteria is 1- leucocytosis on IV levaquin and flagyl on IVF NS wbc is 15.1 today general surgery on board currently NPO for strict bowel rest per general surgery, his body habitus of 406 pounds nad BMI of 56.7 precludes thoughts of operative intervention. continue IV antibiotics per general surgery, if he needs urgent abdominal surgery, this may need to be performed at a [facility] of [facility] 2. Community-acquired pneumonia: Chest x-ray showed right-sided airspace disease likely representing pneumonia. On IV Levaquin which will cover pneumonia. Patient has an allergy to cephalosporins. blood cultures are pending, urine cultures also pending. urine for strep and Legionella pending. Influenza screen was negative. 3. Diverticulitis with microperforation: as under 1 4. AFib with RVR now rate and rhythm controlled. cardiology on board- recommend to stop amlodipine and switch him to cardizem CD 180mg daily fo rheart rate control. to get 2D echo and if it is normal, to get dobutamine stress echocardiogram. will check TSH CHADVASC score is 1- hypertension 5.Morbid obesity He has lost about 100 pounds through dieting. Counseled on DASH diet. At risk for sleep apnea. Will benefit from follow-up with pulmonology on outpatient basis. DVT prophylaxis: lovenox sc 40mg bid, adjusted for weight. Code status: full code Addendum(2:14pm): patient remained febrile, with temperature going up to 101F. HE also had low blood pressure, wtih BP going down to 80s systolic. I think patient will benefit from IV antibiotics with broader coverage. Patient has allergy to Keflex, so I cannot add on Zosyn because of cross-reactivity. Will consult ID. Code Visit Inpatient E&M: 52409 Subs Hosp L3
[2019-08-12 10:28] LABS: Urine Bilirubin Dipstick 1 mg/dL (Negative)
[2019-08-12] MEDS: dilTIAZem CD 180 MG Capsule PO (10:36)
[2019-08-12] MEDS: Aspirin 81 MG TAB.CHEW PO (10:36)
[2019-08-12] MEDS: guaiFENesin 1,200 MG Tablet 1200 MG PO ×2 (10:37→21:51)
[2019-08-12] MEDS: Nystatin Ointment 1 APPLIC TOPICAL (10:37)
[2019-08-12 10:47] LABS: Squamous Epithelial Cells - UA 0-5 SEEN /hpf (0-5); White Blood Cells 0-5 SEEN /hpf (0-5)
--- NOTE | 2019-08-12 10:54 | CASEMGMT ---
Assessment- SW completed assessment with patient. Living situation- Patient lives with his in a 2 story home with entry steps. PCP: Dr Guicho Floyd at [facility] in [place] [phone] Specialists: None Pharmacy: [facility] in [place], [place] [phone] DME: [employer] ADL's/IADL's: Patient is normally independent in all activities of daily living. Past SNF/rehab: None Past HH: None LW: Patient was not sure if he had them. POA: Patient was not sure if he had them Plan: At this time patient is independent in all activities of daily living. Patient does not anticipate any d/c needs. SW/RN CM will follow for O2 or prescription assistance needs if applicable at time of d/c. Staci FLORES STE[employer] BOX TOE INSERTER
[2019-08-12] MEDS: 0.9% Normal Saline 1,000 ML 150 ML IV ×2 (11:18→20:14)
--- NOTE | 2019-08-12 11:18 | CASEMGMT ---
GAIL ESPINOZA NOTE: Per website research: Bariatric Surgery Centers include: [facility], [facility], [facility], and [facility]. Rissa NAJERA RN CM
[2019-08-12] MEDS: Enoxaparin 40 MG/0.4 ML Syringe SC ×2 (14:05→21:51)
--- NOTE | 2019-08-12 14:24 | CHAPLAIN ---
Type of Pastoral Visit _x__ Initial Visit ___ Follow-up Visit ___ On-call Visit ___ General Patient Visit ___ Spiritual Assessment ___ Family Conference ___ Bereavement ___ Rapid Response ___ Code Blue ___ Other (describe below) Pastoral Care Referral From _x__ Patient ___ Family ___ Nurse ___ Physician ___ [place] ___ Retail Merchandising Specialist ___ Other (describe below) Sacrament/Intervention _x__ Active listening ___ Anointing ___ Methodist ___ Bereavement ___ Communion _x__ Sonja exploration ___ ___ Life review _x__ Prayer ___ Reconciliation ___ Sacrament of Sick _x__ Supportive presence ___ Wedding ___ Other (describe below) Pastoral Comments
--- NOTE | 2019-08-12 17:25 | PCM.HP.ID ---
Reason for Consult: diverticulitis Consulted by: Dr. Glass History of Present Illness: The patient is a 48 year old M who presented with sudden onset of severe lower middle abd pain. Had some associated nausea, diaphoresis. No diarrhea, no blood in stool. Developed fever, chills. Pain was stabbing. Denies any cough or SOB, no sputum. Came to ED, fever to 103. Admitted on levaquin and flagyl for diverticulitis. Surgery consulted. Overall feeling much better this afternoon, pain nearly gone. Full ROS performed and neg except as noted above. - Medical History Surgical History: htn Allergies/Adverse Reactions: Allergies cephalexin [From Keflex] Allergy (Verified 08/11/19 21:50) Rash Home Medications: Ambulatory Orders Medication Instructions Recorded Amlodipine [Norvasc] 10 mg PO DAILY 08/11/19 Furosemide [Lasix] 40 mg PO DAILY 08/11/19 Lisinopril [Zestril] 40 mg PO DAILY 08/11/19 - Social History SMOKING STATUS:: Never smoker Vital Signs Temp Pulse Resp BP Pulse Ox 99.1 F 75 20 H 105/63 94 08/12/19 15:32 08/12/19 15:32 08/12/19 15:32 08/12/19 15:32 08/12/19 15:32 Oxygen Flow Rate (L/min) 3 Oxygen Delivery Method Nasal Cannula Weight: 184.4 kg Body Mass Index (BMI) 56.7 Microbiology Past 72 Hours 08/12/19 10:15 Streptococcus pneumoniae Antigen (M - Final Urine, Clean Catch 08/12/19 10:15 Legionella Antigen - Final Urine, Clean Catch 08/11/19 23:30 Influenza Types A,B Direct FA (RANDALL) - Final Mucosa - Nose Laboratory Tests Past 24 Hrs 08/11/19 08/11/19 08/11/19 23:00 23:00 23:47 WBC 15.6 H RBC 4.90 Hgb 14.1 Hct 41.8 MCV 85.3 MCH 28.8 MCHC 33.7 RDW Std Deviation 41.9 RDW Coeff of Tg 13.4 Plt Count 191 MPV 9.6 Immature Gran % (Auto) 0.500 Neut % (Auto) 86.8 H Lymph % (Auto) 6.5 L Fisher % (Auto) 5.9 Eos % (Auto) 0.1 Baso % (Auto) 0.2 Absolute Neuts (auto) 13.5 H Absolute Lymphs (auto) 1.01 Nucleated RBC % 0 Sodium 137 Potassium 3.6 Chloride 102 Carbon Dioxide 27.0 Anion Gap 8 BUN 14 Creatinine 1.23 Estim Creat Clear Calc 77.37 Est GFR (MDRD) Af Amer 80 Est GFR (MDRD) Non-Af 66 BUN/Creatinine Ratio 11.4 Glucose 108 H Lactic Acid 1.1 Calcium 8.1 L Magnesium Total Bilirubin 1.60 H AST 15 ALT 17 Alkaline Phosphatase 72 Troponin I 0.016 Total Protein 6.5 Albumin 3.0 L Globulin 3.5 Albumin/Globulin Ratio 0.9 Lipase 60 L TSH Urine Color Urine Clarity Urine pH Ur Specific [place] Urine Protein Urine Glucose (UA) Urine Ketones Urine Occult Blood Urine Nitrite Urine Bilirubin Urine Urobilinogen Ur Leukocyte Esterase Urine RBC Urine WBC Ur Squamous Epith Cells Urine Bacteria Urine Mucus 08/12/19 08/12/19 08/12/19 04:55 04:55 04:55 WBC 15.1 H RBC 4.54 L Hgb 13.0 Hct 39.9 L MCV 87.9 MCH 28.6 MCHC 32.6 RDW Std Deviation 43.3 RDW Coeff of Tg 13.6 Plt Count 168 MPV 10.0 Immature Gran % (Auto) 0.700 Neut % (Auto) 82.8 H Lymph % (Auto) 8.9 L Fisher % (Auto) 7.3 Eos % (Auto) 0.1 Baso % (Auto) 0.2 Absolute Neuts (auto) 12.5 H Absolute Lymphs (auto) 1.34 Nucleated RBC % 0 Sodium 138 Potassium 3.6 Chloride 104 Carbon Dioxide 28.0 Anion Gap 6 BUN 16 Creatinine 1.28 Estim Creat Clear Calc 74.35 Est GFR (MDRD) Af Amer 77 Est GFR (MDRD) Non-Af 63 BUN/Creatinine Ratio 12.5 Glucose 102 Lactic Acid Calcium 7.4 L Magnesium 1.8 Total Bilirubin AST ALT Alkaline Phosphatase Troponin I < 0.015 Total Protein Albumin Globulin Albumin/Globulin Ratio Lipase TSH 2.85 Urine Color Urine Clarity Urine pH Ur Specific [place] Urine Protein Urine Glucose (UA) Urine Ketones Urine Occult Blood Urine Nitrite Urine Bilirubin Urine Urobilinogen Ur Leukocyte Esterase Urine RBC Urine WBC Ur Squamous Epith Cells Urine Bacteria Urine Mucus 08/12/19 10:15 WBC RBC Hgb Hct MCV MCH MCHC RDW Std Deviation RDW Coeff of Tg Plt Count MPV Immature Gran % (Auto) Neut % (Auto) Lymph % (Auto) Fisher % (Auto) Eos % (Auto) Baso % (Auto) Absolute Neuts (auto) Absolute Lymphs (auto) Nucleated RBC % Sodium Potassium Chloride Carbon Dioxide Anion Gap BUN Creatinine Estim Creat Clear Calc Est GFR (MDRD) Af Amer Est GFR (MDRD) Non-Af BUN/Creatinine Ratio Glucose Lactic Acid Calcium Magnesium Total Bilirubin AST ALT Alkaline Phosphatase Troponin I Total Protein Albumin Globulin Albumin/Globulin Ratio Lipase TSH Urine Color Shanice Urine Clarity Sl. Cloudy Urine pH 5.0 Ur Specific [place] 1.015 Urine Protein 30 H Urine Glucose (UA) Normal Urine Ketones 5 H Urine Occult Blood Negative Urine Nitrite Positive H Urine Bilirubin 1 H Urine Urobilinogen 4 H Ur Leukocyte Esterase 25 H Urine RBC 0 SEEN Urine WBC 0-5 SEEN Ur Squamous Epith Cells 0-5 SEEN Urine Bacteria 0 SEEN Urine Mucus 0 SEEN - Other Studies Radiology: [] reviewed Other Studies: [] Route of nutrition/ use of supplements: [] Nutritional Intake: [] IV Site: [] Murphy Catheter: [] - Physical Exam General: Alert, Oriented x3, Cooperative, No apparent distress HEENT: Atraumatic, PERRLA, EOMI Neck: Supple, No Nodes Lungs: Clear to auscultation, Normal air movement Cardiovascular: Regular rate, Regular Rhythm Abdomen: Soft, Non Tender, Non-Distended, Obese Extremities: No edema Skin: No rashes IV Site: Peripheral Musculoskeletal: No Tenderness to Palpation of Joints or Extremities Neurological: Cranial nerves II-XII grossly intact - Assessment/Plan Antibiotics: [] Assessment/Plan: [] Active and Suspected Problems (Last Reviewed 08/12/19 @ 04:29 by Shade Candelaria MD) Atrial fibrillation with RVR (Acute) Pneumonia (Acute) Perforation of sigmoid colon due to diverticulitis (Acute) sepsis due to diverticulitis with microperforation. Chest imaging with focal infiltrates, but minimal pulm symptoms. Overall improved with better tmax and pain level. Wbc remains elevated. Lactate was normal. Cont levaquin and flagyl for now. Surgery following. He reports taking PCN in the past without issue; had some rash/itching with keflex. If he worsens, would change abx to zosyn. Will follow, thank you, d/w Dr. Glass.
--- NOTE | 2019-08-12 18:44 | NURSING ---
attempted to insert steinberg, pt declines at this time. states that he would like to try to urinate. will be open to steinberg later if the need is still there. educated patient that it is the best way to measure urinary output. aware.
--- NOTE | 2019-08-12 22:41 | CT_ITS ---
STUDY: CT ABDOMEN AND PELVIS WITH CONTRAST REASON FOR EXAM: Male, 48 years old. Lower abdominal pain with fever. RADIATION DOSAGE (If Supplied By Facility): CTDIvol = ( 40.91 ) mGy, DLP = ( 1969.11 ) mGycm TECHNIQUE: Transaxial images were obtained from the dome of the diaphragm to the symphysis pubis with oral contrast (Gastrografin). 100 mL of IV Isovue-370 was administered. Sagittal and coronal images were reconstructed. Significant beam hardening and streak artifact obscuring the anatomy of the upper abdomen. Individualized dose optimization techniques were used for this CT. COMPARISON: None. FINDINGS: There is patchy right middle lobe, lingular and right lower lobe airspace consolidation possibly representing pneumonia. No pleural effusions are visible. Visualized heart appears enlarged. There is no evidence of pericardial effusion. Normal liver. There is a solitary gallstone. There is a cyst within the spleen measuring up to 3.1 cm in greatest dimension. Normal pancreas. Normal bilateral adrenal glands. Normal right kidney. Normal left kidney. Normal visualized stomach. There is no evidence for dilated bowel or ascites. There is fluid-filled colon suggesting possible diarrhea and acute infectious process. There is acute inflammation adjacent to the sigmoid colon where there are diverticula suggesting sequela of acute diverticulitis. There are tiny foci of gas consistent with pneumoperitoneum. The appendix is visualized and appears normal. Normal abdominal aorta. Normal inferior vena cava. Normal retroperitoneum. Normal urinary bladder. There is a small umbilical hernia containing fat. There are diffuse degenerative changes of the visualized spine. The bones appear osteopenic. There are degenerative changes of both hips. CT/Abdomen/Pelvis WITH Contrast IMPRESSION: 1. Acute inflammation and diverticulitis involving the sigmoid colon. There are signs of microperforation with tiny collections of gas adjacent to the abnormal sigmoid colon. 2. No CT evidence for abscess. 3. Fluid-filled colon suggesting diarrhea and possible additional infection. 4. Cholelithiasis. 5. Bilateral basilar airspace disease possibly representing pneumonia. N.B. : The above information has been verbally conveyed by Rochelle Cooney MD to Dr. Katlyn MD, on 08/12/2019 00:56:01 (ET). Electronically Signed: Rochelle Cooney MD at 0:58 EST , Service support ,
[2019-08-13] VITALS (11 sets, daily range): BP systolic 102–119; BP diastolic 50–69; PULSE 81–105; RESP 16–17; TEMP 36.6–37.3; O2SAT 90–98
[2019-08-13] MEDS: Acetaminophen 325 MG Tablet 650 MG PO ×2 (04:56→22:32)
[2019-08-13] MEDS: 0.9% Normal Saline 1,000 ML 150 ML IV (04:58)
[2019-08-13] MEDS: metroNIDAZOLE 500 MG/100 ML BAG 100 MG IV ×4 (05:01→23:57)
[2019-08-13 05:16] LABS: Absolute Lymphocyte Count 0.87 X10^3/uL (0.83-4.51); Absolute Neutrophil Count 10.7 X10^3/uL (2.0-7.7); Basophil# 0.02 X10^3/uL; Basophil% 0.2 % (0-1); Eosinophil# 0.03 X10^3/uL; Eosinophils% 0.2 % (0-5); Hematocrit 37.5 % (40-54); Lymphocyte # 0.87 X10^3/ul (4.0); Lymphocyte % 6.9 % (19-41); Mean Corpuscular Hgb 28.5 pg (27.0-32.0); Mean Corpuscular Volume 89.1 fL (80-94); Mean Platelet Vol. 9.8 fl (6.2-12.0); Monocyte% 7.9 % (0-10); NRBC Flagged by Analyzer 0 % (0-5); Neutrophil # 10.69 X10^3/uL (2.7-7.7); Neutrophil % 84.3 % (47-70); Platelet Count 180 K/mm3 (150-450); RBC Distribution Width CV 13.9 % (11.6-14.6); RBC Distribution Width SD 45.1 fl (35.1-43.9); Red Blood Count 4.21 M/mm3 (4.6-6.2); White Blood Count 12.7 K/mm3 (4.4-11.0)
--- NOTE | 2019-08-13 05:32 | PN.SURG_ITS ---
Patient Problems: Active and Suspected Problems (Last Reviewed 08/12/19 @ 04:29 by Shade Candelaria MD) Atrial fibrillation with RVR (Acute) Pneumonia (Acute) Perforation of sigmoid colon due to diverticulitis (Acute) Subjective: Pt states he feels improved, sore now rather than pain BM this a.m., loose but otherwise not remarkable T99.1 - Physical Exam Vitals/I&O's: Vital Signs Temp Pulse Resp BP Pulse Ox 99.1 F 95 16 111/50 L 95 08/13/19 04:50 08/13/19 04:50 08/13/19 04:50 08/13/19 04:50 08/13/19 04:50 Oxygen Flow Rate (L/min) 3 Oxygen Delivery Method Nasal Cannula Weight: 406 lb 8.518 oz Body Mass Index (BMI) 56.7 Intake and Output for Last 24 Hours 08/11/19 08/12/19 08/13/19 23:59 23:59 23:59 Intake Total 5280.0 / 5280.0 865.0 / 865.0 Output Total 250 / 250 175 / 175 Balance 5030.0 / 5030.0 690.0 / 690.0 Lungs: - - diminished in bases, diminished excursion Abdomen: Bowel Sounds Present, Soft, Non Tender, Obese, - Microbiology Past 72 Hours 08/12/19 10:15 Urine, Clean Catch Streptococcus pneumoniae Antigen (M - Final 08/12/19 10:15 Urine, Clean Catch Legionella Antigen - Final 08/11/19 23:30 Mucosa - Nose Influenza Types A,B Direct FA (RANDALL) - Final Laboratory Results 08/12/19 04:55: WBC 15.1 H, RBC 4.54 L, Hgb 13.0, Hct 39.9 L, MCV 87.9, MCH 28.6, MCHC 32.6, RDW Std Deviation 43.3, RDW Coeff of Tg 13.6, Plt Count 168, MPV 10.0, Immature Gran % (Auto) 0.700, Neut % (Auto) 82.8 H, Lymph % (Auto) 8.9 L, Cross % (Auto) 7.3, Eos % (Auto) 0.1, Baso % (Auto) 0.2, Absolute Neuts (auto) 12.5 H, Absolute Lymphs (auto) 1.34, Nucleated RBC % 0 08/12/19 04:55: Sodium 138, Potassium 3.6, Chloride 104, Carbon Dioxide 28.0, Anion Gap 6, BUN 16, Creatinine 1.28, Estim Creat Clear Calc 74.35, Est GFR (MDRD) Af Amer 77, Est GFR (MDRD) Non-Af 63, BUN/Creatinine Ratio 12.5, Glucose 102, Calcium 7.4 L, Magnesium 1.8, TSH 2.85 08/12/19 04:55: Troponin I < 0.015 08/12/19 10:15: Urine Color Shanice, Urine Clarity Sl. Cloudy, Urine pH 5.0, Ur Specific [place] 1.015, Urine Protein 30 H, Urine Glucose (UA) Normal, Urine Ketones 5 H, Urine Occult Blood Negative, Urine Nitrite Positive H, Urine Bilirubin 1 H, Urine Urobilinogen 4 H, Ur Leukocyte Esterase 25 H, Urine RBC 0 SEEN, Urine WBC 0-5 SEEN, Ur Squamous Epith Cells 0-5 SEEN, Urine Bacteria 0 SEEN, Urine Mucus 0 SEEN 08/13/19 05:00: WBC 12.7 H, RBC 4.21 L, Hgb 12.0 L, Hct 37.5 L, MCV 89.1, MCH 28.5, MCHC 32.0, RDW Std Deviation 45.1 H, RDW Coeff of Tg 13.9, Plt Count 180, MPV 9.8, Immature Gran % (Auto) 0.500, Neut % (Auto) 84.3 H, Lymph % (Auto) 6.9 L, Cross % (Auto) 7.9, Eos % (Auto) 0.2, Baso % (Auto) 0.2, Absolute Neuts (auto) 10.7 H, Absolute Lymphs (auto) 0.87, Nucleated RBC % 0 08/13/19 05:00: Sodium Pending, Potassium Pending, Chloride Pending, Carbon Dioxide Pending, Anion Gap Pending, BUN Pending, Creatinine Pending, Est GFR (MDRD) Af Amer Pending, Est GFR (MDRD) Non-Af Pending, BUN/Creatinine Ratio Pending, Glucose Pending, Calcium Pending Current Medications Acetaminophen (Tylenol) 650 mg PO Q6H PRN PRN PRN Reason: Pain Score 1-3/Temp > 100.7 F Last Admin: 12/19/19 04:56 Dose: 650 mg Documented by: Aspirin (Aspirin, Baby) 81 mg PO DAILY@0800 [facility] Last Admin: 08/12/19 10:36 Dose: 81 mg Documented by: Diltiazem HCl (Cardizem Cd) 120 mg PO DAILY [facility] Enoxaparin Sodium (Lovenox) 40 mg SC BID [facility] Last Admin: 08/12/19 21:51 Dose: 40 mg Documented by: Glucagon () 1 mg IM .X1 PRN PRN Reason: Hypoglycemia Guaifenesin (Mucinex) 1,200 mg PO BID [facility] Last Admin: 08/12/19 21:51 Dose: 1,200 mg Documented by: Levofloxacin (Levaquin Iv) 750 mg in 150 mls @ 100 mls/hr IV Q24@2200 [facility] Last Infusion: 08/12/19 23:16 Dose: Infused Documented by: Dextrose (Dextrose 10%-Water) 250 mls @ 999 mls/hr IV .Q16M PRN; Protocol PRN Reason: HYPOGLYCEMIA Metronidazole (Flagyl) 500 mg in 100 mls @ 100 mls/hr IV Q6 [facility] Last Infusion: 08/13/19 05:01 Dose: 100 mls/hr Documented by: Sodium Chloride () 1,000 mls @ 150 mls/hr IV .Q6H40M [facility] Stop: 08/13/19 06:44 Last Infusion: 08/13/19 05:01 Dose: 0 mls/hr Documented by: Lisinopril (Zestril) 20 mg PO DAILY [facility] Morphine Sulfate () 4 mg IV Q3H PRN PRN PRN Reason: Pain Score 6-10/10 Nystatin (Mycostatin) 1 applic TOPICAL BID [facility]; Protocol Last Admin: 08/12/19 21:54 Dose: Not Given Documented by: Ondansetron HCl (Zofran) 4 mg IV Q8H PRN PRN PRN Reason: NAUSEA/VOMITING Oxycodone HCl (Oxyir) 10 mg PO Q4H PRN PRN PRN Reason: Pain Score 4-5/10 Medical Necessity - Tobacco Use Smoking Status: Never smoker Assessment/Plan All Active Problems (Last Reviewed 08/12/19 @ 04:29 by Shade Candelaria MD) Atrial fibrillation with RVR (Acute) Pneumonia (Acute) Perforation of sigmoid colon due to diverticulitis (Acute) Pt feeling better Will start clears Labs pending Pt encouraged to work on IS and ambulation
[2019-08-13 05:36] LABS: Anion Gap 8 (5-15); BUN 30 mg/dL (7-18); BUN/Creat Ratio 20.5 RATIO (10-20); Calcium,Total 7.9 mg/dL (8.5-10.1); Chloride 106 mmol/L (98-107); Creatinine, Serum 1.46 mg/dL (0.70-1.30); EST Glomerular Filtration Rate 54 mL/min (>60); Est Glom Filt Rate - Afr Amer 66 mL/min (>60); Estimated Creatinine Clearance 65.19 ml/min; Glucose 96 mg/dL (74-106); Potassium 4.1 mmol/L (3.5-5.1); Sodium Level 140 mmol/L (136-145)
[2019-08-13] MEDS: Aspirin 81 MG TAB.CHEW PO (07:44)
[2019-08-13] MEDS: 0.9% Normal Saline 1,000 ML 250 ML IV ×3 (08:05→15:48)
--- NOTE | 2019-08-13 08:54 | PCM.PN.CARD ---
Subjectve: Patient continues to slowly improve, advance to clears, has had several bowel movements without difficulty. Pain is improving. White count improving. Telemetry shows atrial fibrillation with controlled ventricular response. Objective: Vital Signs Temp Pulse Resp BP Pulse Ox 99.1 F 94 16 111/50 L 95 08/13/19 04:50 08/13/19 06:49 08/13/19 04:50 08/13/19 04:50 08/13/19 04:50 Oxygen Flow Rate (L/min) 3 Oxygen Delivery Method Nasal Cannula Weight: 406 lb 8.518 oz Body Mass Index (BMI) 56.7 Intake and Output for Last 24 Hours 08/11/19 08/12/19 08/13/19 23:59 23:59 23:59 Intake Total 5280.0 / 5280.0 1302.5 / 1302.5 Output Total 250 / 250 175 / 175 Balance 5030.0 / 5030.0 1127.5 / 1127.5 General: Awake, Alert, Oriented x 3 HEENT: PERRL, EOMI, Sclera Non Icteric Neck: Supple, Good ROM, No Lymph Node Enlargement Lungs: Clear to auscultation Cardiovascular: Irregular Rhythm, Normal S1, Normal S2, No Murmurs, No Rubs, No Gallops Vascular: No Carotid Bruits, Normal Femoral Pulses, Normal Radial Pulses, Normal Dorsalis Pedal Pulse, Normal Posterior Tibial Pulses Abdomen: Bowel Sounds Present, Soft, Non Tender, No HSM, No Organomegaly Extremities: No Cyanosis, No Clubbing, No edema Neurological: No Focal Motor or Sensory Deficit 08/12/19 04:55: Troponin I < 0.015 08/12/19 10:15: Urine Color Shanice, Urine Clarity Sl. Cloudy, Urine pH 5.0, Ur Specific [place] 1.015, Urine Protein 30 H, Urine Glucose (UA) Normal, Urine Ketones 5 H, Urine Occult Blood Negative, Urine Nitrite Positive H, Urine Bilirubin 1 H, Urine Urobilinogen 4 H, Ur Leukocyte Esterase 25 H, Urine RBC 0 SEEN, Urine WBC 0-5 SEEN 08/13/19 05:00: WBC 12.7 H, RBC 4.21 L, Hgb 12.0 L, Hct 37.5 L, MCV 89.1, MCH 28.5, MCHC 32.0, Plt Count 180, MPV 9.8, Immature Gran % (Auto) 0.500, Neut % (Auto) 84.3 H, Lymph % (Auto) 6.9 L, [place] % (Auto) 7.9, Eos % (Auto) 0.2, Baso % (Auto) 0.2, Absolute Neuts (auto) 10.7 H, Nucleated RBC % 0 08/13/19 05:00: Sodium 140, Potassium 4.1, Chloride 106, Carbon Dioxide 26.0, Anion Gap 8, BUN 30 H, Creatinine 1.46 H, Est GFR (MDRD) Af Amer 66, Est GFR (MDRD) Non-Af 54 L, BUN/Creatinine Ratio 20.5 H, Glucose 96, Calcium 7.9 L Rhythm: EKG: ECHO: Normal LV function, unable to assess RVSP. Stress Test: Negative for inducible ischemia. Cardiac Cath: PCI: CT Surgery: Holter monitor: EPS: PPM: CXR: Chest CT Scan: Medical Necessity - Tobacco Use Smoking Status: Never smoker Assessment/Plan 1. Atrial fibrillation: The patient's heart rate is fairly well controlled with fluid rehydration as of this time. Patient states that he has had what he feels is palpitations in the past which may have been intermittent atrial fibrillation although he has never been officially diagnosed. His atrial fibrillation may have been exacerbated by his abdominal discomfort, and diverticular disease. I would not recommend full dose IV heparin at this time given a possibility of a microperforation on his CT scan. Patient's heart rate appears to be better controlled after IV fluid resuscitation however I would discontinue his amlodipine and switch him to Cardizem CD 180 mg p.o. daily for heart rate control. Should the patient have hypotension, as a result of his Cardizem or antihypertensive therapy, he may benefit from IV amiodarone therapy for heart rate control and possible chemical cardioversion. Patient is 2D echo with Doppler demonstrated normal LV function, unable to quantitate RVSP. LVEF is 65%. Dobutamine echocardiogram was negative for inducible ischemia. Should the patient require surgical correction of his abdominal issues, he will be deemed at low risk for noncardiac surgery. SH is normal. Once the patient has recovered from his illness and assuming he is still in atrial fibrillation, I would recommend starting him on Coumadin rather than Eliquis or Xarelto should he have GI bleeding which would require reversal agents. If he does not spontaneously convert to normal sinus rhythm, we may consider DC cardioversion in 4 weeks time. 2. Obesity: The patient may have undiagnosed obstructive sleep apnea which can be worked up as an outpatient. This may be contributing to his paroxysmal atrial fibrillation. 3. Would recommend obtaining a fasting lipid profile to complete his work-up. 4. Thank you very much for the opportunity to participate in the cardiac care of your patient. Code Visit Inpatient E&M: 50076 Subs Hosp L2
[2019-08-13] MEDS: guaiFENesin 1,200 MG Tablet 1200 MG PO ×2 (09:26→22:24)
[2019-08-13] MEDS: Lisinopril 20 MG Tablet PO (09:26)
[2019-08-13] MEDS: dilTIAZem CD 120 MG Capsule PO (09:26)
[2019-08-13] MEDS: Enoxaparin 40 MG/0.4 ML Syringe SC ×2 (09:26→22:24)
[2019-08-13] MEDS: Nystatin Ointment 1 APPLIC TOPICAL (09:26)
--- NOTE | 2019-08-13 10:31 | PN.ID_ITS ---
Patient Problems: Active and Suspected Problems (Last Reviewed 08/12/19 @ 04:29 by Shade Candelaria MD) Atrial fibrillation with RVR (Acute) Pneumonia (Acute) Perforation of sigmoid colon due to diverticulitis (Acute) Subjective: Feeling better, no fever, no abd pain, taking some sips. - Physical Exam Vitals/I&O's: Vital Signs Temp Pulse Resp BP Pulse Ox 97.8 F 99 16 119/69 95 08/13/19 09:23 08/13/19 09:23 08/13/19 09:23 08/13/19 09:23 08/13/19 09:23 Oxygen Flow Rate (L/min) 2 Oxygen Delivery Method Nasal Cannula Weight: 184.4 kg Body Mass Index (BMI) 56.7 Intake and Output for Last 24 Hours 08/11/19 08/12/19 08/13/19 23:59 23:59 23:59 Intake Total 5280.0 / 5280.0 1302.5 / 1302.5 Output Total 250 / 250 175 / 175 Balance 5030.0 / 5030.0 1127.5 / 1127.5 General: Alert, Cooperative, No apparent distress Lungs: Clear to auscultation, Normal air movement Cardiovascular: Regular rate Abdomen: Soft, Non Tender, Non-Distended Skin: No rashes Microbiology Past 72 Hours 08/12/19 10:15 Urine, Clean Catch Streptococcus pneumoniae Antigen (M - Final 08/12/19 10:15 Urine, Clean Catch Legionella Antigen - Final 08/11/19 23:30 Mucosa - Nose Influenza Types A,B Direct FA (RANDALL) - Final Laboratory Results 08/12/19 10:15: Urine RBC 0 SEEN, Urine WBC 0-5 SEEN, Ur Squamous Epith Cells 0- 5 SEEN, Urine Bacteria 0 SEEN, Urine Mucus 0 SEEN 08/13/19 05:00: WBC 12.7 H, RBC 4.21 L, Hgb 12.0 L, Hct 37.5 L, MCV 89.1, MCH 28.5, MCHC 32.0, RDW Std Deviation 45.1 H, RDW Coeff of Tg 13.9, Plt Count 180, MPV 9.8, Immature Gran % (Auto) 0.500, Neut % (Auto) 84.3 H, Lymph % (Auto) 6.9 L, [place] % (Auto) 7.9, Eos % (Auto) 0.2, Baso % (Auto) 0.2, Absolute Neuts (auto) 10.7 H, Absolute Lymphs (auto) 0.87, Nucleated RBC % 0 08/13/19 05:00: Sodium 140, Potassium 4.1, Chloride 106, Carbon Dioxide 26.0, Anion Gap 8, BUN 30 H, Creatinine 1.46 H, Estim Creat Clear Calc 65.19, Est GFR (MDRD) Af Amer 66, Est GFR (MDRD) Non-Af 54 L, BUN/Creatinine Ratio 20.5 H, Glucose 96, Calcium 7.9 L Current Medications Acetaminophen (Tylenol) 650 mg PO Q6H PRN PRN PRN Reason: Pain Score 1-3/Temp > 100.7 F Last Admin: 08/13/19 04:56 Dose: 650 mg Documented by: Aspirin (Aspirin, Baby) 81 mg PO DAILY@0800 [facility] Last Admin: 08/13/19 07:44 Dose: 81 mg Documented by: Diltiazem HCl (Cardizem Cd) 120 mg PO DAILY [facility] Last Admin: 08/13/19 09:26 Dose: 120 mg Documented by: Enoxaparin Sodium (Lovenox) 40 mg SC BID [facility] Last Admin: 08/13/19 09:26 Dose: 40 mg Documented by: Glucagon () 1 mg IM .X1 PRN PRN Reason: Hypoglycemia Guaifenesin (Mucinex) 1,200 mg PO BID [facility] Last Admin: 08/13/19 09:26 Dose: 1,200 mg Documented by: Levofloxacin (Levaquin Iv) 750 mg in 150 mls @ 100 mls/hr IV Q24@2200 [facility] Last Infusion: 08/12/19 23:16 Dose: Infused Documented by: Dextrose (Dextrose 10%-Water) 250 mls @ 999 mls/hr IV .Q16M PRN; Protocol PRN Reason: HYPOGLYCEMIA Metronidazole (Flagyl) 500 mg in 100 mls @ 100 mls/hr IV Q6 [facility] Last Infusion: 08/13/19 06:01 Dose: Infused Documented by: Sodium Chloride () 1,000 mls @ 250 mls/hr IV .Q4H [facility] Stop: 08/13/19 20:14 Last Admin: 08/13/19 08:05 Dose: 250 mls/hr Documented by: Lisinopril (Zestril) 20 mg PO DAILY [facility] Last Admin: 08/13/19 09:26 Dose: 20 mg Documented by: Morphine Sulfate () 4 mg IV Q3H PRN PRN PRN Reason: Pain Score 6-10/10 Nystatin (Mycostatin) 1 applic TOPICAL BID [facility]; Protocol Last Admin: 08/13/19 09:26 Dose: 1 applicatio Documented by: Ondansetron HCl (Zofran) 4 mg IV Q8H PRN PRN PRN Reason: NAUSEA/VOMITING Oxycodone HCl (Oxyir) 10 mg PO Q4H PRN PRN PRN Reason: Pain Score 4-5/10 Medical Necessity - Tobacco Use Smoking Status: Never smoker Route of nutrition/ use of supplements: [] Nutritional Intake: [] IV Site: [] Murphy Catheter: [] - Assessment/Plan Antibiotics: [] Assessment/Plan: [] Active and Suspected Problems (Last Reviewed 08/12/19 @ 04:29 by Shade Candelaria MD) Atrial fibrillation with RVR (Acute) Pneumonia (Acute) Perforation of sigmoid colon due to diverticulitis (Acute) sepsis due to diverticulitis with microperforation. Chest imaging with focal infiltrates, but minimal pulm symptoms. Overall improved with better tmax and pain level. Wbc remains elevated but improving. Lactate was normal. Cont levaquin and flagyl for now. Surgery following. He reports taking PCN in the past without issue; had some rash/itching with keflex. If he worsens, would change abx to zosyn. Will follow
--- NOTE | 2019-08-13 11:14 | PN_ITS ---
Patient Problems: Active and Suspected Problems (Last Reviewed 08/12/19 @ 04:29 by Shade Candelaria MD) Atrial fibrillation with RVR (Acute) Pneumonia (Acute) Perforation of sigmoid colon due to diverticulitis (Acute) Subjective: Patient seen and examined. He feels much better today. He denied any fever or chills, nausea vomiting or diarrhea. Abdominal pain has improved markedly. Review of symptoms otherwise negative. He was seen by general surgery this morning started on clears, which he is tolerating well so far. Labs and vitals reviewed. Vitals/I&O's: Vital Signs Temp Pulse Resp BP Pulse Ox 97.8 F 99 16 119/69 95 08/13/19 09:23 08/13/19 09:23 08/13/19 09:23 08/13/19 09:23 08/13/19 09:23 Oxygen Flow Rate (L/min) 2 Oxygen Delivery Method Nasal Cannula Weight: 406 lb 8.518 oz Body Mass Index (BMI) 56.7 Intake and Output for Last 24 Hours 08/11/19 08/12/19 08/13/19 23:59 23:59 23:59 Intake Total 5280.0 / 5280.0 2031.67 / 203.67 Output Total 250 / 250 175 / 175 Balance 5030.0 / 5030.0 1856.67 / 1856.67 General: Alert, Oriented x3, Cooperative, No apparent distress, Cooperative - super morbid obesity HEENT: Atraumatic, PERRLA, EOMI, Normocephalic Oral: Dry Mucosa Neck: Supple, No JVD, Negative Carotid Bruits Lungs: Clear to auscultation, Normal air movement, No rhonchi, No wheeze Cardiovascular: Regular rate, Regular Rhythm, Normal S1, Normal S2, No murmurs Abdomen: Bowel Sounds Present, Soft, Non Tender, Non-Distended, No Hepato-splenomegaly, Obese Extremities: No clubbing, No cyanosis, No edema, Capillary Refill Less than 3 Seconds Skin: No rashes, No breakdown Musculoskeletal: No Tenderness to Palpation of Joints or Extremities, No Muscle Wasting Lymphatic: No Cervical, Supraclavicular, or Inguinal Adenopathy Neurological: Cranial nerves II-XII grossly intact, Neuro grossly intact, Motor Exam 5/5 strength throughout Psych/Mental Status: Normal Affect, Appropriate, Alert and oriented to time, place, person, mood and affect Microbiology Past 72 Hours 08/12/19 10:15 Urine, Clean Catch Streptococcus pneumoniae Antigen (M - Final 08/12/19 10:15 Urine, Clean Catch Legionella Antigen - Final 08/11/19 23:30 Mucosa - Nose Influenza Types A,B Direct FA (RANDALL) - Final Laboratory Results 08/13/19 05:00: WBC 12.7 H, RBC 4.21 L, Hgb 12.0 L, Hct 37.5 L, MCV 89.1, MCH 28.5, MCHC 32.0, RDW Std Deviation 45.1 H, RDW Coeff of Tg 13.9, Plt Count 180, MPV 9.8, Immature Gran % (Auto) 0.500, Neut % (Auto) 84.3 H, Lymph % (Auto) 6.9 L, [place] % (Auto) 7.9, Eos % (Auto) 0.2, Baso % (Auto) 0.2, Absolute Neuts (auto) 10.7 H, Absolute Lymphs (auto) 0.87, Nucleated RBC % 0 08/13/19 05:00: Sodium 140, Potassium 4.1, Chloride 106, Carbon Dioxide 26.0, Anion Gap 8, BUN 30 H, Creatinine 1.46 H, Estim Creat Clear Calc 65.19, Est GFR (MDRD) Af Amer 66, Est GFR (MDRD) Non-Af 54 L, BUN/Creatinine Ratio 20.5 H, Glucose 96, Calcium 7.9 L Current Medications Acetaminophen (Tylenol) 650 mg PO Q6H PRN PRN PRN Reason: Pain Score 1-3/Temp > 100.7 F Last Admin: 08/13/19 04:56 Dose: 650 mg Documented by: Aspirin (Aspirin, Baby) 81 mg PO DAILY@0800 [facility] Last Admin: 08/13/19 07:44 Dose: 81 mg Documented by: Diltiazem HCl (Cardizem Cd) 120 mg PO DAILY [facility] Last Admin: 08/13/19 09:26 Dose: 120 mg Documented by: Enoxaparin Sodium (Lovenox) 40 mg SC BID [facility] Last Admin: 08/13/19 09:26 Dose: 40 mg Documented by: Glucagon () 1 mg IM .X1 PRN PRN Reason: Hypoglycemia Guaifenesin (Mucinex) 1,200 mg PO BID [facility] Last Admin: 08/13/19 09:26 Dose: 1,200 mg Documented by: Levofloxacin (Levaquin Iv) 750 mg in 150 mls @ 100 mls/hr IV Q24@2200 [facility] Last Infusion: 08/12/19 23:16 Dose: Infused Documented by: Dextrose (Dextrose 10%-Water) 250 mls @ 999 mls/hr IV .Q16M PRN; Protocol PRN Reason: HYPOGLYCEMIA Metronidazole (Flagyl) 500 mg in 100 mls @ 100 mls/hr IV Q6 [facility] Last Admin: 08/13/19 11:01 Dose: 100 mls/hr Documented by: Sodium Chloride () 1,000 mls @ 250 mls/hr IV .Q4H [facility] Stop: 08/13/19 20:14 Last Admin: 08/13/19 11:00 Dose: 250 mls/hr Documented by: Lisinopril (Zestril) 20 mg PO DAILY [facility] Last Admin: 08/13/19 09:26 Dose: 20 mg Documented by: Morphine Sulfate () 4 mg IV Q3H PRN PRN PRN Reason: Pain Score 6-10/10 Nystatin (Mycostatin) 1 applic TOPICAL BID [facility]; Protocol Last Admin: 08/13/19 09:26 Dose: 1 applicatio Documented by: Ondansetron HCl (Zofran) 4 mg IV Q8H PRN PRN PRN Reason: NAUSEA/VOMITING Oxycodone HCl (Oxyir) 10 mg PO Q4H PRN PRN PRN Reason: Pain Score 4-5/10 STROKE Vital Signs/Narrative: Vital Signs Temp Pulse Resp BP Pulse Ox 08/13/19 09:23 97.8 F 99 16 119/69 95 Medical Necessity - Tobacco Use Smoking Status: Never smoker Assessment/Plan All Active Problems (Last Reviewed 08/12/19 @ 04:29 by Shade Candelaria MD) Atrial fibrillation with RVR (Acute) Pneumonia (Acute) Perforation of sigmoid colon due to diverticulitis (Acute) 1. Sepsis due to diverticulitis with microperforation and community acquired pneumonia * SIRS criteria is 1- leucocytosis; wbc is down to 12.7 today; temperature has settled. * on IV levaquin and flagyl * on IVF NS @ 250cc/r * started on clears by general surgery today * contine IV antibiotics * ID on board * 2. Community-acquired pneumonia: * Chest x-ray showed right-sided airspace disease likely representing pneumonia. * On IV Levaquin which will cover pneumonia. Patient has an allergy to cephalosporins. * blood cultures are pending, urine cultures also pending. * urine for strep and Legionella pending. Influenza screen was negative. * 3. Diverticulitis with microperforation: as under 1 4. AFib with RVR * rate controlled. * was started on cardizem yesterday; became hypotensive overnight. cardizem reduced to 120mg daily * 2D echo pending * TSH was WNL * not on anticoagulation yet o/a of microperforation with diverticulitis. Once it is confirmed that he wont need surgery, will start on coumadin as per cardiology recommendations * 5. Elevated Cr: * Cr is 1.45; doesnt meet criteria for LOI. due to hypotension from yesterday. Hydrate wtih IVF NS ~ 250cc/hr * 5.Morbid obesity * He has lost about 100 pounds through dieting. Counseled on DASH diet. * At risk for sleep apnea. Will benefit from follow-up with pulmonology on outpatient basis. DVT prophylaxis: lovenox sc 40mg bid, adjusted for weight. Code status: full code Code Visit Inpatient E&M: 57035 Subs Hosp L3
[2019-08-13] MEDS: levoFLOXacin IV 750 MG/150 ML BAG 100 MG IV (22:24)
[2019-08-14] VITALS (7 sets, daily range): BP systolic 118–135; BP diastolic 69–74; PULSE 75–114; RESP 16; TEMP 36.8–36.9; O2SAT 91–95
--- NOTE | 2019-08-14 06:18 | PN.SURG_ITS ---
Patient Problems: Active and Suspected Problems (Last Reviewed 08/12/19 @ 04:29 by Shade Candelaria MD) Atrial fibrillation with RVR (Acute) Pneumonia (Acute) Perforation of sigmoid colon due to diverticulitis (Acute) Subjective: Patient continues to improve. He denies any significant abdominal pain. He had a large bowel movement. There is no nausea he is tolerating his clear liquid diet. He did state that he got tachycardic after a walk. - Physical Exam Vitals/I&O's: Vital Signs Temp Pulse Resp BP Pulse Ox 98.4 F 104 H 16 118/74 95 08/14/19 03:00 08/14/19 03:00 08/14/19 03:00 08/14/19 03:00 08/14/19 03:00 Oxygen Flow Rate (L/min) 1 Oxygen Delivery Method Room Air Weight: 406 lb 8.518 oz Body Mass Index (BMI) 56.7 Intake and Output for Last 24 Hours 08/12/19 08/13/19 08/14/19 23:59 23:59 23:59 Intake Total 5280.0 / 5280.0 5181.67 / 5831.67 750 / 750 Output Total 250 / 250 175 / 175 Balance 5030.0 / 5030.0 5006.67 / 5656.67 750 / 750 Abdomen: Bowel Sounds Present, Soft, Non Tender, Obese Microbiology Past 72 Hours 08/12/19 12:35 Sputum, Expectorated/Coughed Gram Stain - Final 08/12/19 12:35 Sputum, Expectorated/Coughed Respiratory Culture - Preliminar y Appears to be normal respiratory fatuma. Further studies to follow. 08/12/19 10:15 Urine, Clean Catch Streptococcus pneumoniae Antigen (M - Final 08/12/19 10:15 Urine, Clean Catch Legionella Antigen - Final 08/11/19 23:30 Mucosa - Nose Influenza Types A,B Direct FA ([facility]ANDALL) - Final Current Medications Acetaminophen (Tylenol) 650 mg PO Q6H PRN PRN PRN Reason: Pain Score 1-3/Temp > 100.7 F Last Admin: 08/13/19 22:32 Dose: 650 mg Documented by: Aspirin (Aspirin, Baby) 81 mg PO DAILY@0800 [facility] Last Admin: 08/13/19 07:44 Dose: 81 mg Documented by: Diltiazem HCl (Cardizem Cd) 120 mg PO DAILY [facility] Last Admin: 08/13/19 09:26 Dose: 120 mg Documented by: Enoxaparin Sodium (Lovenox) 40 mg SC BID [facility] Last Admin: 08/13/19 22:24 Dose: 40 mg Documented by: Glucagon () 1 mg IM .X1 PRN PRN Reason: Hypoglycemia Guaifenesin (Mucinex) 1,200 mg PO BID [facility] Last Admin: 08/13/19 22:24 Dose: 1,200 mg Documented by: Levofloxacin (Levaquin Iv) 750 mg in 150 mls @ 100 mls/hr IV Q24@2200 [facility] Last Infusion: 08/13/19 23:58 Dose: Infused Documented by: Dextrose (Dextrose 10%-Water) 250 mls @ 999 mls/hr IV .Q16M PRN; Protocol PRN Reason: HYPOGLYCEMIA Metronidazole (Flagyl) 500 mg in 100 mls @ 100 mls/hr IV Q6 [facility] Last Infusion: 08/14/19 00:57 Dose: Infused Documented by: Lisinopril (Zestril) 20 mg PO DAILY [facility] Last Admin: 08/13/19 09:26 Dose: 20 mg Documented by: Morphine Sulfate () 4 mg IV Q3H PRN PRN PRN Reason: Pain Score 6-10/10 Nystatin (Mycostatin) 1 applic TOPICAL BID [facility]; Protocol Last Admin: 08/13/19 22:24 Dose: Not Given Documented by: Ondansetron HCl (Zofran) 4 mg IV Q8H PRN PRN PRN Reason: NAUSEA/VOMITING Oxycodone HCl (Oxyir) 10 mg PO Q4H PRN PRN PRN Reason: Pain Score 4-5/10 Sodium Chloride () 10 - 40 ml IV UD PRN PRN Reason: SALINE FLUSH Medical Necessity - Tobacco Use Smoking Status: Never smoker Assessment/Plan All Active Problems (Last Reviewed 08/12/19 @ 04:29 by Shade Candelaria MD) Atrial fibrillation with RVR (Acute) Pneumonia (Acute) Perforation of sigmoid colon due to diverticulitis (Acute) We will advance to full liquids. Currently it appears that the patient's cardiac situation will be his discharge limiting future. If his white count normalizes then I will sign off with recommendations to see him back in the office in 2 weeks time. At that point I have instructed him that in the future will want a pursue a colonoscopy but that there is absolutely no strickland on scheduling that procedure because of his recent perforation. Oscar Michael M.D., F.A.C.S.
[2019-08-14] MEDS: metroNIDAZOLE 500 MG/100 ML BAG 100 MG IV ×3 (06:30→17:01)
[2019-08-14 06:56] LABS: Absolute Lymphocyte Count 1.11 X10^3/uL (0.83-4.51); Absolute Neutrophil Count 8.3 X10^3/uL (2.0-7.7); Basophil# 0.02 X10^3/uL; Basophil% 0.2 % (0-1); Eosinophil# 0.11 X10^3/uL; Eosinophils% 1.1 % (0-5); Hematocrit 35.1 % (40-54); Hemoglobin 12.2 g/dL (13.0-16.5); Lymphocyte # 1.11 X10^3/ul (4.0); Lymphocyte % 10.7 % (19-41); Mean Corp Hgb Conc 34.8 g/dL (32-36); Mean Corpuscular Hgb 31.8 pg (27.0-32.0); Mean Corpuscular Volume 91.4 fL (80-94); Mean Platelet Vol. 10.2 fl (6.2-12.0); Monocyte# 0.76 X10^3/uL; Monocyte% 7.4 % (0-10); NRBC Flagged by Analyzer 0 % (0-5); Neutrophil % 80.2 % (47-70); Platelet Count 220 K/mm3 (150-450); RBC Distribution Width CV 14.2 % (11.6-14.6); RBC Distribution Width SD 44.7 fl (35.1-43.9); Red Blood Count 3.84 M/mm3 (4.6-6.2); White Blood Count 10.3 K/mm3 (4.4-11.0)
[2019-08-14 07:05] LABS: Anion Gap 7 (5-15); BUN 25 mg/dL (7-18); BUN/Creat Ratio 25.4 RATIO (10-20); Calcium,Total 8.2 mg/dL (8.5-10.1); Chloride 110 mmol/L (98-107); Creatinine, Serum 0.98 mg/dL (0.70-1.30); EST Glomerular Filtration Rate 86 mL/min (>60); Est Glom Filt Rate - Afr Amer 104 mL/min (>60); Estimated Creatinine Clearance 97.11 ml/min; Glucose 106 mg/dL (74-106); Potassium 3.9 mmol/L (3.5-5.1); Sodium Level 139 mmol/L (136-145)
[2019-08-14] MEDS: Aspirin 81 MG TAB.CHEW PO (08:02)
--- NOTE | 2019-08-14 08:52 | PN.CARD_ITS ---
Subjectve: Patient feels much better today, no abdominal pain, large bowel movement without difficulty. No fevers or chills. Heart rate is actually increased with ambulation and at rest. Objective: Vital Signs Temp Pulse Resp BP Pulse Ox 98.4 F 103 H 16 118/74 91 08/14/19 03:00 08/14/19 06:44 08/14/19 03:00 08/14/19 03:00 08/14/19 07:15 Oxygen Flow Rate (L/min) 1 Oxygen Delivery Method Room Air Weight: 406 lb 8.518 oz Body Mass Index (BMI) 56.7 Intake and Output for Last 24 Hours 08/12/19 08/13/19 08/14/19 23:59 23:59 23:59 Intake Total 5280.0 / 5280.0 5181.67 / 5831.67 850 / 850 Output Total 250 / 250 175 / 175 Balance 5030.0 / 5030.0 5006.67 / 5656.67 850 / 850 General: Awake, Alert, Oriented x 3 HEENT: PERRL, EOMI, Sclera Non Icteric Neck: Supple, Good ROM, No Lymph Node Enlargement Lungs: Clear to auscultation Cardiovascular: Irregular Rhythm, Normal S1, Normal S2, No Murmurs, No Rubs, No Gallops Vascular: No Carotid Bruits, Normal Femoral Pulses, Normal Radial Pulses, Normal Dorsalis Pedal Pulse, Normal Posterior Tibial Pulses Abdomen: Bowel Sounds Present, Soft, Non Tender, No HSM, No Organomegaly Extremities: No Cyanosis, No Clubbing, No edema Neurological: No Focal Motor or Sensory Deficit 08/14/19 06:18: WBC 10.3, RBC 3.84 L, Hgb 12.2 L, Hct 35.1 L, MCV 91.4, MCH 31.8, MCHC 34.8, Plt Count 220, MPV 10.2, Immature Gran % (Auto) 0.400, Neut % (Auto) 80.2 H, Lymph % (Auto) 10.7 L, [place] % (Auto) 7.4, Eos % (Auto) 1.1, Baso % (Auto) 0.2, Absolute Neuts (auto) 8.3 H, Nucleated RBC % 0 08/14/19 06:18: Sodium 139, Potassium 3.9, Chloride 110 H, Carbon Dioxide 22.0, Anion Gap 7, BUN 25 H, Creatinine 0.98, Est GFR (MDRD) Af Amer 104, Est GFR (MDRD) Non-Af 86, BUN/Creatinine Ratio 25.4 H, Glucose 106, Calcium 8.2 L Rhythm: Telemetry shows atrial fibrillation with controlled and uncontrolled ventricular response. EKG: ECHO: Stress Test: Cardiac Cath: PCI: CT Surgery: Holter monitor: EPS: PPM: CXR: Chest CT Scan: Medical Necessity - Tobacco Use Smoking Status: Never smoker Assessment/Plan 1. Atrial fibrillation: The patient's heart rate is fairly well controlled with fluid rehydration as of this time. Patient states that he has had what he feels is palpitations in the past which may have been intermittent atrial fibrillation although he has never been officially diagnosed. He does have a sister who had Cspin-Lsdctqzed-Xssip which was ablated successfully, and his father had atrial fibrillation as well. His atrial fibrillation may have been exacerbated by his abdominal discomfort, and diverticular disease. I would not recommend full dose IV heparin at this time given a possibility of a microperforation on his CT scan. Patient is 2D echo with Doppler demonstrated normal LV function, unable to quantitate RVSP. LVEF is 65%. Dobutamine echocardiogram was negative for i nducible ischemia. Should the patient require surgical correction of his abdominal issues, he will be deemed at low risk for noncardiac surgery. TSH is normal. As the patient is still in atrial fibrillation and his GI illness is resolving, I am hesitant to place the patient on full dose anticoagulation therapy for fear that he may develop lower GI bleeding or possibly recurrent perforation. I would definitely not recommend Eliquis or Xarelto as these are irreversible. I recommend that the patient's Cardizem CD be increased to 180 mg daily, and titrate up from there. I would recommend he continue on half dose Lovenox 40 mg subcu twice daily for a period of 2 weeks time. If at that time his abdominal situation has remained resolved, I would then switch him to full dose Coumadin going forward. Patient states that he has had episodes of palpitations off and on for many years, but has never obtained a diagnosis. To that end I would recommend that he be discharged on either a 48-hour Holter monitor or a 30-day event monitor to try and document if he goes back and forth between atrial fibrillation. If he goes back and forth between atrial fibrillation and normal sinus rhythm I would recommend lifelong anticoagulation or consideration for ablation therapy if this is not an option going forward. 2. Obesity: The patient may have undiagnosed obstructive sleep apnea which can be worked up as an outpatient. This may be contributing to his paroxysmal atrial fibrillation. 3. Would recommend obtaining a fasting lipid profile to complete his work-up. 4. Thank you very much for the opportunity to participate in the cardiac care of your patient. Patient may be discharged home today from a cardiac standpoint, and follow-up with Dr. Rodríguez going forward. Code Visit Inpatient E&M: 51975 Subs Hosp L2
[2019-08-14 09:34] LABS: Cholesterol 84 mg/dL (200); High Density Lipoprotein 30 mg/dL; Triglycerides 32 mg/dL; Very Low Density Lipoprotein 6 mg/dL (5-40)
[2019-08-14] MEDS: dilTIAZem CD 180 MG Capsule PO (10:04)
[2019-08-14] MEDS: guaiFENesin 1,200 MG Tablet 1200 MG PO (10:04)
[2019-08-14] MEDS: Enoxaparin 40 MG/0.4 ML Syringe SC ×2 (10:04→17:56)
[2019-08-14] MEDS: Nystatin Ointment 1 APPLIC TOPICAL (10:05)
[2019-08-14] MEDS: Lisinopril 20 MG Tablet PO (10:05)
[2019-08-14] MEDS: guaiFENesin 10 ML UDC (200MG/10ML) PO (11:00)
--- NOTE | 2019-08-14 11:38 | PN_ITS ---
Patient Problems: Active and Suspected Problems (Last Reviewed 08/12/19 @ 04:29 by Shade Candelaria MD) Atrial fibrillation with RVR (Acute) Pneumonia (Acute) Perforation of sigmoid colon due to diverticulitis (Acute) Subjective: Patient seen and examined. He feels better today. He did have tachyardia overnight. He tolerated clear liquid diet. Review of systems is otherwise negative. Labs and vitals reviewed. Wbc has trended down to 10.3. Heart rate was 114 at time of review this morning. Vitals/I&O's: Vital Signs Temp Pulse Resp BP Pulse Ox 98.2 F 114 H 16 135/69 H 92 08/14/19 10:02 08/14/19 10:02 08/14/19 10:02 08/14/19 10:02 08/14/19 10:02 Oxygen Flow Rate (L/min) 1 Oxygen Delivery Method Room Air Weight: 406 lb 8.518 oz Body Mass Index (BMI) 56.7 Intake and Output for Last 24 Hours 08/12/19 08/13/19 08/14/19 23:59 23:59 23:59 Intake Total 5280.0 / 5280.0 5181.67 / 5831.67 850 / 850 Output Total 250 / 250 175 / 175 Balance 5030.0 / 5030.0 5006.67 / 5656.67 850 / 850 General: Alert, Oriented x3, Cooperative, No apparent distress, Cooperative - super morbid obesity HEENT: Atraumatic, PERRLA, EOMI, Normocephalic Oral: Dry Mucosa Neck: Supple, No JVD, Negative Carotid Bruits Lungs: Clear to auscultation, Normal air movement, No rhonchi, No wheeze Cardiovascular: Regular rate, Regular Rhythm, Normal S1, Normal S2, No murmurs Abdomen: Bowel Sounds Present, Soft, Non Tender, Non-Distended, No Hepato- splenomegaly, Obese Extremities: No clubbing, No cyanosis, No edema, Capillary Refill Less than 3 Seconds Skin: No rashes, No breakdown Musculoskeletal: No Tenderness to Palpation of Joints or Extremities, No Muscle Wasting Lymphatic: No Cervical, Supraclavicular, or Inguinal Adenopathy Neurological: Cranial nerves II-XII grossly intact, Neuro grossly intact, Motor Exam 5/5 strength throughout Psych/Mental Status: Normal Affect, Appropriate, Alert and oriented to time, place, person, mood and affect Microbiology Past 72 Hours 08/12/19 12:35 Sputum, Expectorated/Coughed Gram Stain - Final 08/12/19 12:35 Sputum, Expectorated/Coughed Respiratory Culture - Final Presumptive C albicans Mixed Fatuma 08/12/19 10:15 Urine, Clean Catch Streptococcus pneumoniae Antigen (M - Final 08/12/19 10:15 Urine, Clean Catch Legionella Antigen - Final 08/11/19 23:30 Mucosa - Nose Influenza Types A,B Direct FA ([facility]) - Final Laboratory Results 08/14/19 06:18: WBC 10.3, RBC 3.84 L, Hgb 12.2 L, Hct 35.1 L, MCV 91.4, MCH 31.8, MCHC 34.8, RDW Std Deviation 44.7 H, RDW Coeff of Tg 14.2, Plt Count 220, MPV 10.2, Immature Gran % (Auto) 0.400, Neut % (Auto) 80.2 H, Lymph % (Auto) 10.7 L, [place] % (Auto) 7.4, Eos % (Auto) 1.1, Baso % (Auto) 0.2, Absolute Neuts (auto) 8.3 H, Absolute Lymphs (auto) 1.11, Nucleated RBC % 0 08/14/19 06:18: Sodium 139, Potassium 3.9, Chloride 110 H, Carbon Dioxide 22.0, Anion Gap 7, BUN 25 H, Creatinine 0.98, Estim Creat Clear Calc 97.11, Est GFR (MDRD) Af Amer 104, Est GFR (MDRD) Non-Af 86, BUN/Creatinine Ratio 25.4 H, Glucose 106, Calcium 8.2 L 08/14/19 06:18: Triglycerides 32, Cholesterol 84, LDL Cholesterol 48, VLDL Cholesterol 6, HDL Cholesterol 30 L Current Medications Acetaminophen (Tylenol) 650 mg PO Q6H PRN PRN PRN Reason: Pain Score 1-3/Temp > 100.7 F Last Admin: 08/13/19 22:32 Dose: 650 mg Documented by: Aspirin (Aspirin, Baby) 81 mg PO DAILY@0800 [facility] Last Admin: 08/14/19 08:02 Dose: 81 mg Documented by: Diltiazem HCl (Cardizem Cd) 180 mg PO DAILY [facility] Last Admin: 12/20/19 10:04 Dose: 180 mg Documented by: Enoxaparin Sodium (Lovenox) 40 mg SC BID [facility] Last Admin: 08/14/19 10:04 Dose: 40 mg Documented by: Glucagon () 1 mg IM .X1 PRN PRN Reason: Hypoglycemia Guaifenesin (Robitussin) 10 ml PO Q6H PRN PRN PRN Reason: COUGH Last Admin: 08/14/19 11:00 Dose: 10 ml Documented by: Guaifenesin (Mucinex) 600 mg PO BID [facility] Levofloxacin (Levaquin Iv) 750 mg in 150 mls @ 100 mls/hr IV Q24@2200 [facility] Last Infusion: 08/13/19 23:58 Dose: Infused Documented by: Dextrose (Dextrose 10%-Water) 250 mls @ 999 mls/hr IV .Q16M PRN; Protocol PRN Reason: HYPOGLYCEMIA Metronidazole (Flagyl) 500 mg in 100 mls @ 100 mls/hr IV Q6 [facility] Last Admin: 08/14/19 11:00 Dose: 100 mls/hr Documented by: Lisinopril (Zestril) 20 mg PO DAILY [facility] Last Admin: 08/14/19 10:05 Dose: 20 mg Documented by: Morphine Sulfate () 4 mg IV Q3H PRN PRN PRN Reason: Pain Score 6-10/10 Nystatin (Mycostatin) 1 applic TOPICAL BID [facility]; Protocol Last Admin: 08/14/19 10:05 Dose: 1 applicatio Documented by: Ondansetron HCl (Zofran) 4 mg IV Q8H PRN PRN PRN Reason: NAUSEA/VOMITING Oxycodone HCl (Oxyir) 10 mg PO Q4H PRN PRN PRN Reason: Pain Score 4-5/10 Sodium Chloride () 10 - 40 ml IV UD PRN PRN Reason: SALINE FLUSH STROKE Vital Signs/Narrative: Vital Signs Temp Pulse Resp BP Pulse Ox 08/14/19 10:02 98.2 F 114 H 16 135/69 H 92 Medical Necessity - Tobacco Use Smoking Status: Never smoker Assessment/Plan All Active Problems (Last Reviewed 08/12/19 @ 04:29 by Shade Candelaria MD) Atrial fibrillation with RVR (Acute) Pneumonia (Acute) Perforation of sigmoid colon due to diverticulitis (Acute) 1. Sepsis due to diverticulitis with microperforation and community acquired pneumonia * SIRS criteria is 0; leucocytosis has resolved. Temperature has settled. * on IV levaquin and metronidazole * general surgery on board; to advance to full liquid diet today. * DC IVF since patient is tolerating liquid diet. * ID on board * * 2. Community-acquired pneumonia: * Chest x-ray showed right-sided airspace disease likely representing pneumonia. * On IV Levaquin which will cover pneumonia. Patient has an allergy to cephalosporins. * sputum cultured Presumptive C albicans and mixed fatuma * urine for strep and Legionella * blood cultures are pending, urine cultures also pending. * * 3. Diverticulitis with microperforation: as under 1 4. AFib with RVR * rate controlled. * cardizem increased to 180mg today, as he became more tachycardic * he had stress test which was negative * 2D echo: moderately dilated LV, with EF of 65%, and severely enlarged left atrium and moderately enlarged right atrium. 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 To get 30 day event monitor prior to discharge to see if he goes back and forth between atrial fibrillation. * 5. Elevated Cr: resolved. Cr is 0.98 today. * 5.Morbid obesity * He has lost about 100 pounds through dieting. Counseled on DASH diet. * At risk for sleep apnea. Will benefit from follow-up with pulmonology on outpatient basis. DVT prophylaxis: lovenox sc 40mg bid, adjusted for weight. Code status: full code Disposition: dc home once he tolerates full liquid diet. Code Visit Inpatient E&M: 26676 Subs Hosp L2
--- NOTE | 2019-08-14 13:34 | PCM.DC ---
- Discharge Diagnoses Current Active Problems: Current Active and Chronic Problems (Last Reviewed 08/12/19 @ 04:29 by Shade Candelaria MD) Atrial fibrillation with RVR (Acute) Pneumonia (Acute) Perforation of sigmoid colon due to diverticulitis (Acute) You will use the following diet at home:: Full liquid - advance to soft diet as tolerated Your food should be the consistency of: Regular Your liquids should be the consistency of: Regular/Thin Discharge Activity: Return to Normal Activity Weight Bearing Status: Weight bearing as tolerated Call your doctor if you observe: Fever of 101 or Higher, Increased palpitations (irregular heartbeat), Uncontrolled pain - worsening abdominal pain Instructions: Understanding Diverticulosis and Diverticulitis, Atrial Fibrillation, Diverticulitis, Pneumonia Additional Instructions: to have 30 day event monitor to assess for afib. Results to be sent to Dr Rodríguez Allergies/Adverse Reactions: Allergies cephalexin [From Keflex] Allergy (Verified 08/11/19 21:50) Rash Medications to take at Discharge Amlodipine [Norvasc] 10 mg PO DAILY 08/11/19 Furosemide [Lasix] 40 mg PO DAILY 08/11/19 Diltiazem CD [Cardizem CD] 180 mg PO DAILY #30 cap 08/14/19 Enoxaparin [Lovenox] 40 mg SUBCUT BID #28 syringe 08/14/19 Lisinopril [Zestril] 20 mg PO DAILY #30 tab 08/14/19 Metronidazole 500 mg PO TID #15 tab 08/14/19 levoFLOXacin tablet [Levaquin tablet] 750 mg PO DAILY #5 tab 08/14/19 The following prescriptions were given: Diltiazem CD [Cardizem CD] 180 mg PO DAILY #30 cap Transmission Status: Received by [facility] levoFLOXacin tablet [Levaquin tablet] 750 mg PO DAILY #5 tab Transmission Status: Pending to [facility] Enoxaparin [Lovenox] 40 mg SUBCUT BID #28 syringe Transmission Status: Received by [facility] Metronidazole 500 mg PO TID #15 tab Transmission Status: Pending to [facility] Lisinopril [Zestril] 20 mg PO DAILY #30 tab Transmission Status: Received by [facility] Orders to be completed after discharge: 30-Day Event Recorder [[facility]] Location: None Selected Primary Care Physician: Guicho Floyd MD [Primary Care Provider] - Please follow up with your Primary Care Physician in: one week Test Results: Test results from this visit will be discussed in further detail at your follow-up appointment, if applicable. Please Follow Up With: Oscar Michael MD When: 1-2 weeks Please Follow Up With: Estela Rodríguez MD When: 1-2 weeks Proposed Discharge Date: 08/14/19
--- NOTE | 2019-08-14 13:38 | DS.PCM_ITS ---
Discharge Date and Diagnosis - Problem List Patient Problems: Active and Suspected Problems (Last Reviewed 08/12/19 @ 04:29 by Shade Candelaria MD) Atrial fibrillation with RVR (Acute) Pneumonia (Acute) Perforation of sigmoid colon due to diverticulitis (Acute) Date of Admission: 08/12/19 Date of Discharge: 08/14/19 - Primary Discharge Diagnosis Active and Suspected Problems (Last Reviewed 08/12/19 @ 04:29 by Shade Candelaria MD) Atrial fibrillation with RVR (Acute) community acquired Pneumonia (Acute) Perforation of sigmoid colon due to diverticulitis (Acute) Hospital Course and Treatment Imaging Results: Diagnostic Data Chest X-Ray 08/11/19 23:36 IMPRESSION: 1. Right-sided airspace consolidation likely representing pneumonia. 2. Cardiomegaly and mild pulmonary congestion. Electronically Signed: Rochelle Cooney MD at 0:21 EST , Service support , Abdomen/Pelvis CT 08/12/19 22:41 IMPRESSION: 1. Acute inflammation and diverticulitis involving the sigmoid colon. There are signs of microperforation with tiny collections of gas adjacent to the abnormal sigmoid colon. 2. No CT evidence for abscess. 3. Fluid-filled colon suggesting diarrhea and possible additional infection. 4. Cholelithiasis. 5. Bilateral basilar airspace disease possibly representing pneumonia. N.B. : The above information has been verbally conveyed by Rochelle Cooney MD to Dr. Katlyn MD, on 08/12/2019 00:56:01 (ET). Electronically Signed: Rochelle Cooney MD at 0:58 EST , Service support , ADDENDUM: 08/12/19 0105 IMPRESSION: 1. Acute inflammation and diverticulitis involving the sigmoid colon. There are signs of microperforation with tiny collections of gas adjacent to the abnormal sigmoid colon. 2. No CT evidence for abscess. 3. Fluid-filled colon suggesting diarrhea and possible additional infection. 4. Cholelithiasis. 5. Bilateral basilar airspace disease possibly representing pneumonia. N.B. : The above information has been verbally conveyed by Rochelle Cooney MD to Dr. Katlyn MD, on 08/12/2019 00:56:01 (ET). Electronically Signed: Rochelle Cooney MD at 0:58 EST , Service support , general surgery- Dr Michael cardiology- DR Rodríguez infectious diseaese- Dr Porter Operations: None Procedures: 2-D Echocardiogram, Stress test Summary of Care Provided: The patient is a 48 year old M with a past medical history of hypertension. He was admitted through the ED on 08/12/2019 with a complaint of persistent lower abdominal pain which started several hours prior to presentation and was precipitated by having a bowel movement. He had never had pain like this before and was complained of subjective fever and chills with rigors. He also has some shortness of breath and palpitations. On admission in the ED he was found to be A. fib with RVR. Chest x-ray was significant for right-sided consolidation. Abdominopelvic CT was remarkable for acute inflammation and diverticulitis involving the sigmoid colon with microperforation as well as bibasilar airspace disease. He was admitted and managed for diverticulitis with microperforation, community-acquired pneumonia and newly diagnosed A. fib with RVR. CHADVASC score was 1. He was kept n.p.o. and hydrated with IV fluids. He was started on IV Levaquin and metronidazole. General surgery was consulted and plan was for conservative management. Per general surgery, if patient required surgery, owing to his body habitus, he would need to go to a bariatric center of excellence. Patient had a stress test on account of A. fib with RVR which was negative. 2D echo done showed EF of 65% with severely enlarged left atrium and moderately enlarged right atrium, unable to assess right ventricular systolic pressure and diastolic dysfunction. TSH was within normal limits. Patient's leukocytosis gradually resolved and was started on clear liquids as abdominal pain had resolved. He tolerated clear liquids and was advanced to full liquid diet. On admission he was started on subcu Lovenox 40 international units twice daily. Discontinued as per cardiology at discharge as there were concerns about him possibly bleeding since the microperforation had not fully resolved. Per cardiology, plan was to switch patient to Coumadin when he followed up in 2 weeks after discharge once diverticulitis had fully healed and he had a colonoscopy as needed. Remained stable and was discharged home on p.o. Levaquin and p.o. metronidazole for 5 days. He is to follow-up with cardiology, general surgery and his primary care doctor. Per general surgery, patient will be evaluated for colonoscopy as needed on outpatient basis. He was given a 30-day event monitor recorder to assess for paroxysmal A. fib. Patient did mention that his father had A. fib and his sister also likely had Ooxbt-Alaozfkbu-Hjigp syndrome. Patient was seen and examined prior to discharge. He felt well and had no complaints. Review of systems is otherwise negative. He was eager to be discharged. Labs and vitals reviewed. Home medication reviewed and reconciled. o/e: Vital Signs Height 5 ft 11 in Weight: 406 lb 8.518 oz Weight in Pounds 406.5 lbs Pulse Ox 92 Temperature 98.2 F Pulse Rate 75 Respiratory Rate 16 Blood Pressure 120/70 Blood Pressure Position Sitting [] General: Alert, Oriented x3, Cooperative, No apparent distress, Cooperative - super morbid obesity HEENT: Atraumatic, PERRLA, EOMI, Normocephalic Oral: moist mucosa Neck: Supple, No JVD, Negative Carotid Bruits Lungs: Clear to auscultation, Normal air movement, No rhonchi, No wheeze Cardiovascular: Regular rate, Regular Rhythm, Normal S1, Normal S2, No murmurs Abdomen: Bowel Sounds Present, Soft, Non Tender, Non-Distended, No Hepato- splenomegaly, Obese Extremities: No clubbing, No cyanosis, No edema, Capillary Refill Less than 3 Seconds Skin: No rashes, No breakdown Musculoskeletal: No Tenderness to Palpation of Joints or Extremities, No Muscle Wasting Lymphatic: No Cervical, Supraclavicular, or Inguinal Adenopathy Neurological: Cranial nerves II-XII grossly intact, Neuro grossly intact, Motor Exam 5/5 strength throughout Psych/Mental Status: Normal Affect, Appropriate, Alert and oriented to time, place, person, mood and affect Patient Problems: Active and Suspected Problems (Last Reviewed 08/12/19 @ 04:29 by Shade Candelaria MD) Atrial fibrillation with RVR (Acute) Pneumonia (Acute) Perforation of sigmoid colon due to diverticulitis (Acute) - Physical Exam Vitals/I&O's: Vital Signs Temp Pulse Resp BP Pulse Ox 98.2 F 114 H 16 135/69 H 92 08/14/19 10:02 08/14/19 10:02 08/14/19 10:02 08/14/19 10:02 08/14/19 10:02 Oxygen Flow Rate (L/min) 1 Oxygen Delivery Method Room Air Weight: 406 lb 8.518 oz Body Mass Index (BMI) 56.7 Intake and Output for Last 24 Hours 08/12/19 08/13/19 08/14/19 23:59 23:59 23:59 Intake Total 5280.0 / 5280.0 5181.67 / 5831.67 1150 / 1150 Output Total 250 / 250 175 / 175 Balance 5030.0 / 5030.0 5006.67 / 5656.67 1150 / 1150 Microbiology Past 72 Hours 08/12/19 12:35 Sputum, Expectorated/Coughed Gram Stain - Final 08/12/19 12:35 Sputum, Expectorated/Coughed Respiratory Culture - Final Presumptive C albicans Mixed Michelle 08/12/19 10:15 Urine, Clean Catch Streptococcus pneumoniae Antigen (M - Final 08/12/19 10:15 Urine, Clean Catch Legionella Antigen - Final 08/11/19 23:30 Mucosa - Nose Influenza Types A,B Direct FA (RANDALL) - Final Laboratory Results 08/14/19 06:18: WBC 10.3, RBC 3.84 L, Hgb 12.2 L, Hct 35.1 L, MCV 91.4, MCH 31.8, MCHC 34.8, RDW Std Deviation 44.7 H, RDW Coeff of Tg 14.2, Plt Count 220, MPV 10.2, Immature Gran % (Auto) 0.400, Neut % (Auto) 80.2 H, Lymph % (Auto) 10.7 L, [place] % (Auto) 7.4, Eos % (Auto) 1.1, Baso % (Auto) 0.2, Absolute Neuts (auto) 8.3 H, Absolute Lymphs (auto) 1.11, Nucleated RBC % 0 08/14/19 06:18: Sodium 139, Potassium 3.9, Chloride 110 H, Carbon Dioxide 22.0, Anion Gap 7, BUN 25 H, Creatinine 0.98, Estim Creat Clear Calc 97.11, Est GFR (MDRD) Af Amer 104, Est GFR (MDRD) Non-Af 86, BUN/Creatinine Ratio 25.4 H, Glucose 106, Calcium 8.2 L 08/14/19 06:18: Triglycerides 32, Cholesterol 84, LDL Cholesterol 48, VLDL Cholesterol 6, HDL Cholesterol 30 L Current Medications Acetaminophen (Tylenol) 650 mg PO Q6H PRN PRN PRN Reason: Pain Score 1-3/Temp > 100.7 F Last Admin: 08/13/19 22:32 Dose: 650 mg Documented by: Aspirin (Aspirin, Baby) 81 mg PO DAILY@0800 [facility] Last Admin: 08/14/19 08:02 Dose: 81 mg Documented by: Diltiazem HCl (Cardizem Cd) 180 mg PO DAILY [facility] Last Admin: 08/14/19 10:04 Dose: 180 mg Documented by: Enoxaparin Sodium (Lovenox) 40 mg SC BID [facility] Last Admin: 08/14/19 10:04 Dose: 40 mg Documented by: Glucagon () 1 mg IM .X1 PRN PRN Reason: Hypoglycemia Guaifenesin (Robitussin) 10 ml PO Q6H PRN PRN PRN Reason: COUGH Last Admin: 08/14/19 11:00 Dose: 10 ml Documented by: Guaifenesin (Mucinex) 600 mg PO BID [facility] Levofloxacin (Levaquin Iv) 750 mg in 150 mls @ 100 mls/hr IV Q24@2200 [facility] Last Infusion: 08/13/19 23:58 Dose: Infused Documented by: Dextrose (Dextrose 10%-Water) 250 mls @ 999 mls/hr IV .Q16M PRN; Protocol PRN Reason: HYPOGLYCEMIA Metronidazole (Flagyl) 500 mg in 100 mls @ 100 mls/hr IV Q6 [facility] Last Infusion: 08/14/19 12:24 Dose: Infused Documented by: Lisinopril (Zestril) 20 mg PO DAILY [facility] Last Admin: 08/14/19 10:05 Dose: 20 mg Documented by: Morphine Sulfate () 4 mg IV Q3H PRN PRN PRN Reason: Pain Score 6-10/10 Nystatin (Mycostatin) 1 applic TOPICAL BID [facility]; Protocol Last Admin: 08/14/19 10:05 Dose: 1 applicatio Documented by: Ondansetron HCl (Zofran) 4 mg IV Q8H PRN PRN PRN Reason: NAUSEA/VOMITING Oxycodone HCl (Oxyir) 10 mg PO Q4H PRN PRN PRN Reason: Pain Score 4-5/10 Sodium Chloride () 10 - 40 ml IV UD PRN PRN Reason: SALINE FLUSH Discharge Diet: - - full liquid diet, to advance to soft diet as tolerated. Discharge Activity: Return to Normal Activity Weight Bearing Status: Weight bearing as tolerated Call your doctor if you observe: Fever of 101 or Higher, Increased palpitations (irregular heartbeat), Uncontrolled pain - worsening abdominal pain Home Medications: Medications to take at Discharge Amlodipine [Norvasc] 10 mg PO DAILY 08/11/19 Furosemide [Lasix] 40 mg PO DAILY 08/11/19 Diltiazem CD [Cardizem CD] 180 mg PO DAILY #30 cap 08/14/19 Enoxaparin [Lovenox] 40 mg SUBCUT BID #28 syringe 08/14/19 Lisinopril [Zestril] 20 mg PO DAILY #30 tab 08/14/19 Metronidazole 500 mg PO TID #15 tab 08/14/19 levoFLOXacin tablet [Levaquin tablet] 750 mg PO DAILY #5 tab 08/14/19 Following Prescrptions Were Given to Patient: Diltiazem CD [Cardizem CD] 180 mg PO DAILY #30 cap Transmission Status: Received by [facility] levoFLOXacin tablet [Levaquin tablet] 750 mg PO DAILY #5 tab Transmission Status: Received by [facility] Enoxaparin [Lovenox] 40 mg SUBCUT BID #28 syringe Transmission Status: Received by [facility] Metronidazole 500 mg PO TID #15 tab Transmission Status: Received by [facility] Lisinopril [Zestril] 20 mg PO DAILY #30 tab Transmission Status: Received by [facility] Other Amb Orders: 30-Day Event Recorder [[facility]] Location: None Selected Primary Care Physician: Guicho Floyd MD [Primary Care Provider] - Please follow up with your Primary Care Physician in: one week Please Follow Up With: Oscar Michael MD When: 1-2 weeks Please Follow Up With: Estela Rodríguez MD When: 1-2 weeks Patient Instructions: Understanding Diverticulosis and Diverticulitis, Atrial Fibrillation, Diverticulitis, Pneumonia Disposition: Home Minutes spent on discharge:: 45 Patient Condition:: Stable Medical Necessity - Tobacco Use Smoking Status: Never smoker Meaningful Use Info Meaningful Use Diagnoses (Choose all that apply): None applicable Code Visit Inpatient E&M: 14270 Disch Hosp
--- NOTE | 2019-08-14 14:35 | CASEMGMT ---
GAIL ESPINOZA NOTE: Pt will be discharged home on Lovenox injections. Prescription has been e-scribed to [facility] pharmacy. Call placed to [facility] and spoke with Michael for Ludwig check. Lovenox cost is $127.63. Total cost of all 5 prescriptions is $186.30. GAIL ESPINOZA to room to talk with pt. He was made aware of cost of prescriptions, states this is affordable, and would like the prescriptions delivered to his room today prior to discharge. Call placed back to [facility] pharmacy and they were made aware. RNSanam, has started Lovenox injection teaching w/pt. Rissa BONDN GAIL CM
--- NOTE | 2019-08-14 15:06 | PN.ID_ITS ---
Patient Problems: Active and Suspected Problems (Last Reviewed 08/12/19 @ 04:29 by Shade Candelaria MD) Atrial fibrillation with RVR (Acute) Pneumonia (Acute) Perforation of sigmoid colon due to diverticulitis (Acute) Subjective: Feeling better, no abd pain, no fever, eating without issue - Physical Exam Vitals/I&O's: Vital Signs Temp Pulse Resp BP Pulse Ox 98.2 F 75 16 120/70 92 08/14/19 14:14 08/14/19 14:14 08/14/19 14:14 08/14/19 14:14 08/14/19 14:14 Oxygen Flow Rate (L/min) 1 Oxygen Delivery Method Room Air Weight: 184.4 kg Body Mass Index (BMI) 56.7 Intake and Output for Last 24 Hours 08/12/19 08/13/19 08/14/19 23:59 23:59 23:59 Intake Total 5280.0 / 5280.0 5181.67 / 5831.67 1150 / 1150 Output Total 250 / 250 175 / 175 Balance 5030.0 / 5030.0 5006.67 / 5656.67 1150 / 1150 General: Alert, Cooperative, No apparent distress Lungs: Clear to auscultation, Normal air movement Cardiovascular: Regular rate, Regular Rhythm Abdomen: Soft, Non Tender, Non-Distended Skin: No rashes Microbiology Past 72 Hours 08/12/19 12:35 Sputum, Expectorated/Coughed Gram Stain - Final 08/12/19 12:35 Sputum, Expectorated/Coughed Respiratory Culture - Final Presumptive C albicans Mixed Michelle 08/12/19 10:15 Urine, Clean Catch Streptococcus pneumoniae Antigen (M - Final 08/12/19 10:15 Urine, Clean Catch Legionella Antigen - Final 08/11/19 23:30 Mucosa - Nose Influenza Types A,B Direct FA ([facility]ANDALL) - Final Laboratory Results 08/14/19 06:18: WBC 10.3, RBC 3.84 L, Hgb 12.2 L, Hct 35.1 L, MCV 91.4, MCH 31.8, MCHC 34.8, RDW Std Deviation 44.7 H, RDW Coeff of Tg 14.2, Plt Count 220, MPV 10.2, Immature Gran % (Auto) 0.400, Neut % (Auto) 80.2 H, Lymph % (Auto) 10.7 L, [place] % (Auto) 7.4, Eos % (Auto) 1.1, Baso % (Auto) 0.2, Absolute Neuts (auto) 8.3 H, Absolute Lymphs (auto) 1.11, Nucleated RBC % 0 08/14/19 06:18: Sodium 139, Potassium 3.9, Chloride 110 H, Carbon Dioxide 22.0, Anion Gap 7, BUN 25 H, Creatinine 0.98, Estim Creat Clear Calc 97.11, Est GFR (MDRD) Af Amer 104, Est GFR (MDRD) Non-Af 86, BUN/Creatinine Ratio 25.4 H, Glucose 106, Calcium 8.2 L 08/14/19 06:18: Triglycerides 32, Cholesterol 84, LDL Cholesterol 48, VLDL Cholesterol 6, HDL Cholesterol 30 L Current Medications Acetaminophen (Tylenol) 650 mg PO Q6H PRN PRN PRN Reason: Pain Score 1-3/Temp > 100.7 F Last Admin: 08/13/19 22:32 Dose: 650 mg Documented by: Aspirin (Aspirin, Baby) 81 mg PO DAILY@0800 [facility] Last Admin: 08/14/19 08:02 Dose: 81 mg Documented by: Diltiazem HCl (Cardizem Cd) 180 mg PO DAILY [facility] Last Admin: 08/14/19 10:04 Dose: 180 mg Documented by: Enoxaparin Sodium (Lovenox) 40 mg SC BID [facility] Last Admin: 08/14/19 10:04 Dose: 40 mg Documented by: Glucagon () 1 mg IM .X1 PRN PRN Reason: Hypoglycemia Guaifenesin (Robitussin) 10 ml PO Q6H PRN PRN PRN Reason: COUGH Last Admin: 08/14/19 11:00 Dose: 10 ml Documented by: Guaifenesin (Mucinex) 600 mg PO BID [facility] Levofloxacin (Levaquin Iv) 750 mg in 150 mls @ 100 mls/hr IV Q24@2200 [facility] Last Infusion: 08/13/19 23:58 Dose: Infused Documented by: Dextrose (Dextrose 10%-Water) 250 mls @ 999 mls/hr IV .Q16M PRN; Protocol PRN Reason: HYPOGLYCEMIA Metronidazole (Flagyl) 500 mg in 100 mls @ 100 mls/hr IV Q6 [facility] Last Infusion: 08/14/19 12:24 Dose: Infused Documented by: Lisinopril (Zestril) 20 mg PO DAILY [facility] Last Admin: 08/14/19 10:05 Dose: 20 mg Documented by: Morphine Sulfate () 4 mg IV Q3H PRN PRN PRN Reason: Pain Score 6-10/10 Nystatin (Mycostatin) 1 applic TOPICAL BID [facility]; Protocol Last Admin: 08/14/19 10:05 Dose: 1 applicatio Documented by: Ondansetron HCl (Zofran) 4 mg IV Q8H PRN PRN PRN Reason: NAUSEA/VOMITING Oxycodone HCl (Oxyir) 10 mg PO Q4H PRN PRN PRN Reason: Pain Score 4-5/10 Sodium Chloride () 10 - 40 ml IV UD PRN PRN Reason: SALINE FLUSH Medical Necessity - Tobacco Use Smoking Status: Never smoker Route of nutrition/ use of supplements: [] Nutritional Intake: [] IV Site: [] Murphy Catheter: [] - Assessment/Plan Antibiotics: [] Assessment/Plan: [] Active and Suspected Problems (Last Reviewed 08/12/19 @ 04:29 by Shade Candelaria MD) Atrial fibrillation with RVR (Acute) Pneumonia (Acute) Perforation of sigmoid colon due to diverticulitis (Acute) sepsis due to diverticulitis with microperforation. Chest imaging with focal infiltrates, but minimal pulm symptoms. Ok for home on 5 days po levaquin.flagyl. Will follow
== END 2019-08-14 18:32 | disposition home or self-care (01) | DRG 871 ==
LOC: ED 08-12 01:02 → PCU 08-12 01:38
PROVIDERS: Internal Medicine Cardiovascular Disease; Admitting Provider Hospitalist; Emergency Provider Emergency Medicine; Family Provider Family Medicine; PCP Family Medicine; Visit Provider Student in an Organized Health Care Education/Training Program
DX: A41.9 Sepsis, unspecified organism (principal); J18.9 Pneumonia, unspecified organism; K57.20 Diverticulitis of large intestine with perforation and abscess without bleeding; Z68.43 Body mass index [BMI] 50.0-59.9, adult; I10 Essential (primary) hypertension; E66.01 Morbid (severe) obesity due to excess calories; K80.20 Calculus of gallbladder without cholecystitis without obstruction; I48.0 Paroxysmal atrial fibrillation
CPT/HCPCS: 36415; 71045; 74177; 80048; 80053; 80061; 81001; 83605; 83690; 83735; 84443; 84484; 85025; 87040; 87070; 87205; 87449; 87804; 93005; 93017; 93306; 93350; 97161; 97165; 97802; 99251; 99285; J7030; J7040; J7050; Q9957; Q9967; A4216; C8928; C8929; G0463; J2405

== ENCOUNTER → 2019-09-01 10:44 | Outpatient (REF) | payer OTHER, SELFPAY ==
[2019-08-12 02:10] VITALS: BMI 56.7
== END ==
LOC: CVS 10:44
PROVIDERS: Family Provider Family Medicine; PCP Family Medicine; Referring Provider Internal Medicine Cardiovascular Disease; Visit Provider Internal Medicine Cardiovascular Disease
DX: I48.91 Unspecified atrial fibrillation (principal)
CPT/HCPCS: 93270; 93271

== ENCOUNTER → 2019-09-09 23:18 | Outpatient (CLI) | payer SELFPAY, OTHER ==
[2019-09-01 13:44] VITALS: BMI 54.7
== END ==
PROVIDERS: Family Provider Family Medicine; PCP Family Medicine; Referring Provider Internal Medicine Cardiovascular Disease; Visit Provider Internal Medicine Cardiovascular Disease
DX: I10 Essential (primary) hypertension (principal); I48.91 Unspecified atrial fibrillation
CPT/HCPCS: 95810

== ENCOUNTER 2019-09-24 05:54 | Emergency (ER) | payer OTHER, SELFPAY ==
[2019-09-03 08:25] VITALS: BMI 54.7
[2019-09-24 05:58] VITALS: BP 164/95; PULSE 96; RESP 16; TEMP 36.4; O2SAT 95; BMI 58.9
--- NOTE | 2019-09-24 06:07 | EKG12_ITS ---
Test Reason : HTN Blood Pressure : / mmHG Vent. Rate : 077 BPM Atrial Rate : 500 BPM P-R Int : 000 ms QRS Dur : 092 ms QT Int : 424 ms P-R-T Axes : 000 006 019 degrees QTc Int : 479 ms Atrial fibrillation with premature ventricular or aberrantly conducted complexes Abnormal ECG Confirmed by DELMER WEIR, SIGRID ([id number]), editor city LONNIE ALLEN ([id number]) on 09/25/2019 1:20:43 PM Referred By: SOPHIA Confirmed By:NEENA DOWELL MD
--- NOTE | 2019-09-24 06:08 | RAD_ITS ---
STUDY: X-RAY CHEST REASON FOR EXAM: Male, 48 years old. hypertension -- possible anginal equivalent -- has a heart monitor on because of afib TECHNIQUE: PA and lateral chest COMPARISON: 08/11/2019. FINDINGS: The lungs are clear and expanded. There is no demonstrated pleural abnormality. There is stable mild cardiomegaly. There is ectasia of the thoracic aorta. There is metallic density overlying the mid chest likely external stimulator device. Normal mediastinum and willard. Normal visualized pulmonary arteries. Normal visualized aortic arch and descending thoracic aorta. Normal visualized thoracic spine. Normal visualized ribs, clavicles, and shoulders. There is no demonstrated abnormality of the visualized soft tissue structures of the upper abdomen. RAD/Chest PA and Lateral IMPRESSION: No acute findings, stable cardiomegaly Stable ectasia of the thoracic aorta Metallic density overlying the mid chest likely external stimulator device Electronically Signed: Oscar Hess, at 7:03 EST Tel , Service support ,
[2019-09-24] MEDS: hydrALAZINE 20 MG/ML Vial IV (06:32)
--- NOTE | 2019-09-24 06:33 | ED.DCSUM_ITS ---
History of Present Illness Chief Complaint: Hypertension Informant: Patient Onset: Yesterday Context: Gradual Onset Timing: Continuous - at least 8 hrs Quality: pinch Location: beneath left arm (posterior distal left upper arm) and face Current Severity: Mild Maximum Severity: Mild Worsened by: nothing Relieved by: nothing Associated Symptoms: BP elevated 170s Narrative: Patient has a known history of chronic A. fib. He does not have any other known heart problems. He states for 2 days he has felt some mild increased swelling in his abdomen and both legs. Mild discomfort in his left upper arm and what felt like a toothache in his left upper dentition without actually having any reproducible pain there with palpation or eating. He denies having any chest pain, palpitations, shortness of breath, lightheadedness, syncope or near s yncope. No nausea, vomiting, abnormal sweating. He became concerned when he checked his blood pressure and it was extremely high so he came to the ER for evaluation. He states he does not feel all that bad. He states he is on a new medication that he thinks is supposed to help slow his heart down for his A. fib, but he does not know what it is. He has metolazone in his pocket to use as needed for edema, however he was concerned that it may not interact well with his new medication so he has not tried it yet. 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 (4) Perforation of sigmoid colon due to diverticulitis Status: Resolved Past Medical History - Allergies and Home Meds Allergies/Adverse Reactions: Allergies cephalexin [From Keflex] Allergy (Verified 09/24/19 05:56) Rash Primary Care Physician: Guicho Floyd MD [Primary Care Provider] - Doctors: Marcos - cardiology Surgical History: tonsillectomy Smoking Status: Never smoker - Family History Maternal Family History: Family History (Last Reviewed 09/03/19 @ 08:20 by Mercy Canseco) Father Atrial fibrillation Sister Atrial fibrillation Sister Atrial fibrillation Family History: Reports: Heart Disease, Hypertension Paternal Family History: Family History (Last Reviewed 09/03/19 @ 08:20 by Mercy Canseco) Father Atrial fibrillation Sister Atrial fibrillation Sister Atrial fibrillation Family History: Reports: - - His father and 2 sisters had A. fib. Also he has 2 sisters who has cancer. Review of Systems General: Denies: Chills, Fever, Sweats Eyes: Denies: Visual changes - bilaterally, Diplopia ENT: Reports: - - facial pain, - - no sinus congestion. Denies: Bilateral ear pain, Rhinorrhea, Sore throat Cardiovascular: Denies: Chest pain, Palpitations Respiratory: Denies: Dyspnea, Cough, Dyspnea on exertion, Orthopnea Gastrointestinal: Denies: Abdominal pain, Nausea, Vomiting, Diarrhea, Melena, Hematochezia Genitourinary: Denies: Dysuria, Hematuria, Frequency Musculoskeletal: Reports: Swelling, Extremity Pain - left upper arm. Denies: Neck pain, Back pain Skin: Denies: Rash, Wounds Neurological: Denies: Headache, Weakness, Numbness Physical Exam Vital Signs/Narrative: Vital Signs Temp Pulse Resp BP Pulse Ox 09/24/19 05:58 97.5 F L 96 16 164/95 H 95 Inital Vital Signs reviewed: Yes General: Well nourished, Well developed, Obese, No Acute Distress Head: Normocephalic, Atraumatic Eyes: Perrl, EOMI ENT: Moist mucous membranes, No rhinorrhea, - - Dentures in place, normal gingiva. No reproducible tenderness. No trismus. No sinus tenderness. No nasal turbinate edema or purulent discharge. No facial asymmetry or swelling noted. No abscess. Neck: Supple, Nontender, No lymphadenopathy, No JVD Cardiovascular: No murmurs, Irregular, - - symmetric, equal 2+/4 radial pulses. Negative for: Tachycardia Respiratory: No distress, CTA bilaterally, Chest nontender Abdomen: Soft, Nontender, Nondistended, Normal bowel sounds Back: Nontender, Normal Inspection Extremities: Nontender, Edema - 1+ BLE to knees, symmetric. Negative for: Calf Tenderness Skin: Normal color, No rash, No Trauma Neurological: Alert, Oriented x3, Cranial nerves II-XII grossly intact, Normal Strength, Normal Sensation, Normal Gait Psychological: Normal affect, Normal Mood Diagnostic/Tx/Re-eval Chest X-Ray - ED: 2 View, Read by ED Physician, No Acute Disease, No Infiltrates Impressions Chest X-Ray 09/24/19 06:08 IMPRESSION: No acute findings, stable cardiomegaly Stable ectasia of the thoracic aorta Metallic density overlying the mid chest likely external stimulator device Electronically Signed: Oscar Hess, at 7:03 EST Tel , Service support , 09/24/19 06:08 Chest PA and Lateral [RAD] Stat Laboratory Results 09/24/19 09/24/19 06:30 06:30 WBC 10.2 RBC 4.96 Hgb 14.1 Hct 42.7 MCV 86.1 MCH 28.4 MCHC 33.0 RDW Std Deviation 41.9 RDW Coeff of Tg 13.5 Plt Count 265 MPV 9.6 Immature Gran % (Auto) 0.300 Neut % (Auto) 71.8 H Lymph % (Auto) 20.9 [place] % (Auto) 5.0 Eos % (Auto) 1.7 Baso % (Auto) 0.3 Absolute Neuts (auto) 7.4 Absolute Lymphs (auto) 2.14 Nucleated RBC % 0 Sodium 140 Potassium 4.1 Chloride 107 Carbon Dioxide 28.0 Anion Gap 5 BUN 18 Creatinine 0.91 Estim Creat Clear Calc 101.39 Est GFR (MDRD) Af Amer 114 Est GFR (MDRD) Non-Af 94 BUN/Creatinine Ratio 19.8 Glucose 102 Calcium 8.6 Troponin I < 0.015 - Rhythm Strip Rhythm Strip: A-fib Rate: 75 Ectopy: None - EKG Initial EKG Interpretation: No Acute Injury Pattern, Atrial Fibrillation - Rate controlled in the 70s Prior: Unchanged - Medical Decision Making INR 1.3 on 09/21, which was 3 days ago. Therefore, this was not repeated. Patient is not having chest discomfort, but with nonreproducible discomfort in his left face and left upper extremity, along with significantly elevated blood pressure, I do not think it was unreasonable to consider acute coronary syndrome. His troponin is negative, and his EKG shows rate controlled atrial fibrillation with no acute injury pattern or significant morphology changes compared with his prior. He has been having pain all night since yesterday evening, and given this I do not think he needs to be admitted for further evaluation, especially since we got his blood pressure down to a reasonable level after a dose of hydralazine. On reexamination, the arm discomfort is resolved after getting his blood pressure down. On my examination, 2 view chest x-ray shows no acute disease. It is somewhat limited due to his obesity however. Patient's new medicine is Cardizem CD, which was started around 5 weeks ago. He then was advised to double his lisinopril from 20 mg to 40 mg about 1.5 weeks ago. He is on nothing else for his blood pressure. He also states that he takes Lasix 40 mg once daily, he has not taken the metolazone in a couple of months, they are only as needed. The plan will be to give him an extra dose of Lasix today, 40 mg IV, in addition to the tablet that he will take later this afternoon as his daily Lasix, and he may also take some metolazone. Since he is on the diuretic, Cardizem, and lisinopril at a higher dose, I will not add any other antihypertensive classes at this time. He will follow-up with cardiology. He is comfortable with that plan. ED Disposition - Plan for ED Patient: Disposition: Home or Assisted Living Diagnosis: Accelerated hypertension Instructions: HYPERTENSION, Established Referrals: Guicho Floyd MD [Primary Care Provider] - Earl Rodríguez MD [STAFF PHYSICIAN] - 3-5 Days Additional Instructions: Take your Lasix today still, but at 3 or 4 PM, in addition to the dose of IV Lasix you received in the emergency department. You may also take 1 of your metolazone tablets if you wish. Follow-up for a recheck of your blood pressure.
[2019-09-24 06:41] LABS: Absolute Lymphocyte Count 2.14 X10^3/uL (0.83-4.51); Absolute Neutrophil Count 7.4 X10^3/uL (2.0-7.7); Basophil# 0.03 X10^3/uL; Basophil% 0.3 % (0-1); Eosinophil# 0.17 X10^3/uL; Eosinophils% 1.7 % (0-5); Hematocrit 42.7 % (40-54); Hemoglobin 14.1 g/dL (13.0-16.5); Lymphocyte # 2.14 X10^3/ul (4.0); Lymphocyte % 20.9 % (19-41); Mean Corpuscular Hgb 28.4 pg (27.0-32.0); Mean Corpuscular Volume 86.1 fL (80-94); Mean Platelet Vol. 9.6 fl (6.2-12.0); Monocyte# 0.51 X10^3/uL; NRBC Flagged by Analyzer 0 % (0-5); Neutrophil # 7.36 X10^3/uL (2.7-7.7); Neutrophil % 71.8 % (47-70); Platelet Count 265 K/mm3 (150-450); RBC Distribution Width CV 13.5 % (11.6-14.6); RBC Distribution Width SD 41.9 fl (35.1-43.9); Red Blood Count 4.96 M/mm3 (4.6-6.2); White Blood Count 10.2 K/mm3 (4.4-11.0)
[2019-09-24 07:02] LABS: Anion Gap 5 (5-15); BUN 18 mg/dL (7-18); BUN/Creat Ratio 19.8 RATIO (10-20); Calcium,Total 8.6 mg/dL (8.5-10.1); Chloride 107 mmol/L (98-107); Creatinine, Serum 0.91 mg/dL (0.70-1.30); EST Glomerular Filtration Rate 94 mL/min (>60); Est Glom Filt Rate - Afr Amer 114 mL/min (>60); Estimated Creatinine Clearance 101.39 ml/min; Glucose 102 mg/dL (74-106); Potassium 4.1 mmol/L (3.5-5.1); Sodium Level 140 mmol/L (136-145)
[2019-09-24] MEDS: Furosemide 40 MG/4 ML Vial IV (07:23)
[2019-09-24 07:27] VITALS: BP 168/88; PULSE 75; RESP 18; O2SAT 99
== END 2019-09-24 07:28 | disposition home or self-care (01) ==
PROVIDERS: Emergency Provider Emergency Medicine; PCP Family Medicine
DX: I10 Essential (primary) hypertension (principal); E66.9 Obesity, unspecified; I77.810 Thoracic aortic ectasia; I48.19 Other persistent atrial fibrillation; Z79.01 Long term (current) use of anticoagulants; Z79.899 Other long term (current) drug therapy
CPT/HCPCS: 71046; 80048; 84484; 85025; 93005; 96374; 96375; 99285; A4216; J1940

== ENCOUNTER 2019-10-14 22:36 | Emergency (ER) | payer OTHER, SELFPAY ==
[2019-10-13 10:18] VITALS: BMI 59.1
[2019-10-14 22:37] VITALS: BP 180/87; PULSE 97; RESP 21; TEMP 36.6; O2SAT 93; BMI 59.6
--- NOTE | 2019-10-14 22:43 | EKG12_ITS ---
Test Reason : CP Blood Pressure : / mmHG Vent. Rate : 094 BPM Atrial Rate : 098 BPM P-R Int : 000 ms QRS Dur : 104 ms QT Int : 392 ms P-R-T Axes : 000 017 016 degrees QTc Int : 490 ms Atrial fibrillation with a competing junctional pacemaker with premature ventricular or aberrantly co nducted complexes Low voltage QRS Cannot rule out Anterior infarct , age undetermined Abnormal ECG Confirmed by DELMER WEIR, SIGRID ([id number]), film and video editor DEYVI SANTILLAN ([id number]) on 10/19/2019 2:35:08 PM Referred By: NYDIA Confirmed By:NEENA DOWELL MD
--- NOTE | 2019-10-14 22:45 | ED.RN ---
pt denies any chest pain on arrival to ED. given 4 baby asa and 1 nitro on squad. pt with c/o LUQ and upper back pressure.
--- NOTE | 2019-10-14 22:48 | RAD_ITS ---
HISTORY: chest pain EXAMINATION/TECHNIQUE: XR Chest 1 View: Portable COMPARISON: 09/24/2019 FINDINGS: Cardiac telemetry leads in place. Large body habitus. Right basilar equivocal patchy infiltrate which may be chest wall related and not pneumonia. The heart is upper normal in size. No vascular congestion or pleural effusion. No pneumothorax. RAD/Chest 1 View (Portable) IMPRESSION: Right basilar equivocal low-grade infiltrate. Please see comment above. at [id number] Reported and signed by: Lupillo Combs MD Electronically Signed: Lupillo Combs, at 23:12 EST Tel , Service support ,
[2019-10-14 22:52] LABS: Absolute Lymphocyte Count 2.21 X10^3/uL (0.83-4.51); Absolute Neutrophil Count 9.9 X10^3/uL (2.0-7.7); Basophil# 0.03 X10^3/uL; Basophil% 0.2 % (0-1); Eosinophil# 0.18 X10^3/uL; Eosinophils% 1.4 % (0-5); Hematocrit 43.5 % (40-54); Hemoglobin 14.2 g/dL (13.0-16.5); Lymphocyte # 2.21 X10^3/ul (4.0); Lymphocyte % 16.8 % (19-41); Mean Corp Hgb Conc 32.6 g/dL (32-36); Mean Corpuscular Hgb 28.1 pg (27.0-32.0); Mean Corpuscular Volume 86.1 fL (80-94); Mean Platelet Vol. 9.4 fl (6.2-12.0); Monocyte# 0.75 X10^3/uL; Monocyte% 5.7 % (0-10); NRBC Flagged by Analyzer 0 % (0-5); Neutrophil # 9.91 X10^3/uL (2.7-7.7); Neutrophil % 75.6 % (47-70); Platelet Count 242 K/mm3 (150-450); RBC Distribution Width CV 13.5 % (11.6-14.6); RBC Distribution Width SD 42.5 fl (35.1-43.9); Red Blood Count 5.05 M/mm3 (4.6-6.2); White Blood Count 13.1 K/mm3 (4.4-11.0)
[2019-10-14 23:06] LABS: International Normalized Ratio 1.3; Prothrombin Time (Protime)PT. 15.6 SECONDS (11.7-14.9)
--- NOTE | 2019-10-14 23:09 | ED.DCSUM_ITS ---
History of Present Illness Chief Complaint: Chest Pain Detail of Chief Complaint: Chest pain and abdominal pain Informant: Patient, Family Onset: Today Context: Gradual Onset Current Severity: Moderate Maximum Severity: Moderate Narrative: Patient presents via EMS for chest pain and abdominal pain. He has a history of A. fib that was diagnosed in July 2019. He is currently on flecainide and Cardizem for rate control and is on Coumadin. Patient had a stress echo in July that showed EF of 65% with no ischemic changes on stress test. Patient states he ate dinner around 530. Shortly after that he took his Coumadin and a dose of Lasix followed shortly after by some left lower chest pressure and left upper quadrant pain. He states the pain feels that it goes through to his back. Feels as if it is moving down his back slightly. He took aspirin and 1 nitro at home. Pain is improved, but patient is unable to say if the pain improved after taking this medication. - Past Medical History (1) KAYLIN (obstructive sleep apnea) Status: Chronic (2) Essential hypertension Status: Chronic (3) [facility] current use of anticoagulant Status: Chronic (4) Persistent atrial fibrillation Status: Chronic (5) Perforation of sigmoid colon due to diverticulitis Status: Resolved Past Medical History - Allergies and Home Meds Allergies/Adverse Reactions: Allergies cephalexin [From Keflex] Allergy (Verified 10/14/19 22:48) Rash Primary Care Physician: Guicho Floyd MD [Primary Care Provider] - Prior records reviewed: Yes Surgical History: tonsillectomy Lives: Spouse/ Significant Other Smoking Status: Never smoker - Family History Maternal Family History: Family History (Last Reviewed 10/06/19 @ 14:33 by ERIC Conner) Father Atrial fibrillation Sister Atrial fibrillation Sister Atrial fibrillation Family History: Reports: Heart Disease, Hypertension Paternal Family History: Family History (Last Reviewed 10/06/19 @ 14:33 by ERIC Conner) Father Atrial fibrillation Sister Atrial fibrillation Sister Atrial fibrillation Family History: Reports: - - His father and 2 sisters had A. fib. Also he has 2 sisters who has cancer. Review of Systems General: Denies: Chills, Fever Eyes: Denies: Visual changes - bilaterally ENT: Denies: Bilateral ear pain Cardiovascular: Reports: Chest pain Respiratory: Denies: Dyspnea, Cough Gastrointestinal: Reports: Abdominal pain, - - Abdomen feels bloated. Denies: Nausea, Vomiting, Diarrhea Musculoskeletal: Reports: Back pain. Denies: Extremity Pain Skin: Denies: Rash Neurological: Denies: Headache Allergy: Denies: Uticaria Physical Exam Vital Signs/Narrative: Vital Signs Temp Pulse Resp BP Pulse Ox 10/14/19 22:37 97.8 F 97 21 H 180/87 H 93 Inital Vital Signs reviewed: Yes General: Well nourished, Well developed Head: Normocephalic ENT: Moist mucous membranes Neck: Supple Cardiovascular: Irregular Respiratory: No distress, CTA bilaterally Abdomen: Soft, Nontender, Hypoactive bowel sounds Extremities: Edema - 2+ edema, symmetric Skin: Normal color Neurological: Alert, Oriented x3 Psychological: Normal affect Diagnostic/Tx/Re-eval Impressions Chest X-Ray 10/14/19 22:48 IMPRESSION: Right basilar equivocal low-grade infiltrate. Please see comment above. at [id number] Reported and signed by: Lupillo Combs MD Electronically Signed: Lupillo Combs, at 23:12 EST Tel , Service support , 10/14/19 22:48 Chest 1 View (Portable) [RAD] Stat Laboratory Results 10/14/19 10/14/19 10/14/19 22:47 22:47 22:47 WBC 13.1 H RBC 5.05 Hgb 14.2 Hct 43.5 MCV 86.1 MCH 28.1 MCHC 32.6 RDW Std Deviation 42.5 RDW Coeff of Tg 13.5 Plt Count 242 MPV 9.4 Immature Gran % (Auto) 0.300 Neut % (Auto) 75.6 H Lymph % (Auto) 16.8 L [place] % (Auto) 5.7 Eos % (Auto) 1.4 Baso % (Auto) 0.2 Absolute Neuts (auto) 9.9 H Absolute Lymphs (auto) 2.21 Nucleated RBC % 0 PT 15.6 H INR 1.3 D-Dimer Quant (PE/DVT) Sodium 140 Potassium 3.6 Chloride 103 Carbon Dioxide 33.0 H Anion Gap 4 L BUN 23 H Creatinine 1.24 Estim Creat Clear Calc 76.75 Est GFR (MDRD) Af Amer 79 Est GFR (MDRD) Non-Af 66 BUN/Creatinine Ratio 18.5 Glucose 104 Calcium 8.5 Total Bilirubin Direct Bilirubin AST ALT Alkaline Phosphatase Troponin I < 0.015 Total Protein Albumin Globulin Lipase 10/14/19 10/14/19 10/14/19 22:47 22:47 22:47 WBC RBC Hgb Hct MCV MCH MCHC RDW Std Deviation RDW Coeff of Tg Plt Count MPV Immature Gran % (Auto) Neut % (Auto) Lymph % (Auto) [place] % (Auto) Eos % (Auto) Baso % (Auto) Absolute Neuts (auto) Absolute Lymphs (auto) Nucleated RBC % PT INR D-Dimer Quant (PE/DVT) 0.44 Sodium Potassium Chloride Carbon Dioxide Anion Gap BUN Creatinine Estim Creat Clear Calc Est GFR (MDRD) Af Amer Est GFR (MDRD) Non-Af BUN/Creatinine Ratio Glucose Calcium Total Bilirubin 0.50 Direct Bilirubin 0.33 H AST 45 H ALT 36 Alkaline Phosphatase 114 Troponin I Total Protein 6.8 Albumin 3.2 Globulin 3.6 Lipase 79 10/15/19 01:45 WBC RBC Hgb Hct MCV MCH MCHC RDW Std Deviation RDW Coeff of Tg Plt Count MPV Immature Gran % (Auto) Neut % (Auto) Lymph % (Auto) [place] % (Auto) Eos % (Auto) Baso % (Auto) Absolute Neuts (auto) Absolute Lymphs (auto) Nucleated RBC % PT INR D-Dimer Quant (PE/DVT) Sodium Potassium Chloride Carbon Dioxide Anion Gap BUN Creatinine Estim Creat Clear Calc Est GFR (MDRD) Af Amer Est GFR (MDRD) Non-Af BUN/Creatinine Ratio Glucose Calcium Total Bilirubin Direct Bilirubin AST ALT Alkaline Phosphatase Troponin I < 0.015 Total Protein Albumin Globulin Lipase - EKG Initial EKG Interpretation: Atrial Flutter - Atrial flutter with ventricular rate of 94. No acute ischemia. Follow-up EKG Interpretation: Atrial Flutter - Atrial flutter 81 with no acute ischemia. - Medical Decision Making Patient had taken aspirin and 1 nitro prior to arrival. At the time of my initial evaluation his only complaint was for some back pain. He was given morphine and Zofran on repeat evaluation was completely pain-free. I discussed the possibility of observation overnight for cycling of cardiac enzymes, however he would prefer to avoid this. He did have a stress test in July that was normal. He did agree to stay for a 3-hour repeat troponin and EKG both of these are unremarkable. Patient has remained pain-free throughout the rest of his ED stay. He will be discharged home with his at this time. ED Disposition - Plan for ED Patient: Disposition: Home or Assisted Living Diagnosis: Chest pain, Back pain, Subtherapeutic international normalized ratio (INR) Instructions: CHEST PAIN, Uncertain Cause, BACK AND NECK PAIN, General Referrals: Guicho Floyd MD [Primary Care Provider] - Earl Rodríguez MD [STAFF PHYSICIAN] - 1-2 Weeks
[2019-10-14 23:11] LABS: Anion Gap 4 (5-15); BUN 23 mg/dL (7-18); BUN/Creat Ratio 18.5 RATIO (10-20); Calcium,Total 8.5 mg/dL (8.5-10.1); Chloride 103 mmol/L (98-107); Creatinine, Serum 1.24 mg/dL (0.70-1.30); EST Glomerular Filtration Rate 66 mL/min (>60); Est Glom Filt Rate - Afr Amer 79 mL/min (>60); Estimated Creatinine Clearance 76.75 ml/min; Glucose 104 mg/dL (74-106); Potassium 3.6 mmol/L (3.5-5.1); Sodium Level 140 mmol/L (136-145)
[2019-10-14 23:23] LABS: D-Dimer Quantitative (DVT/PE) 0.44 FEU/ug/m (0.27-0.49)
[2019-10-14 23:25] LABS: Lipase 79 U/L (73-393)
[2019-10-14 23:35] LABS: AST(SGOT) 45 U/L (15-37); Alanine Aminotransfer ALT/SGPT 36 U/L (16-61); Albumin, Serum 3.2 g/dL (3.2-5.0); Alkaline Phosphatase 114 U/L (45-117); Bilirubin, Direct 0.33 mg/dL (0.00-0.30); Globulin 3.6 g/dL (2.2-4.2); Protein, Total 6.8 g/dL (6.4-8.2)
[2019-10-15 00:18] VITALS: BP 149/75; PULSE 82; RESP 20; O2SAT 96
[2019-10-15] MEDS: 0.9% Normal Saline 1,000 ML 15 ML IV (00:19)
[2019-10-15 01:27] VITALS: BP 116/57; PULSE 80; RESP 18; O2SAT 96
--- NOTE | 2019-10-15 01:45 | EKG12_ITS ---
Test Reason : REPEAT Blood Pressure : / mmHG Vent. Rate : 081 BPM Atrial Rate : 288 BPM P-R Int : 000 ms QRS Dur : 104 ms QT Int : 424 ms P-R-T Axes : 000 039 028 degrees QTc Int : 492 ms Atrial fibrillation with premature ventricular or aberrantly conducted complexes Low voltage QRS Prolonged QT Abnormal ECG Confirmed by DELMER WEIR, SIGRID ([id number]), newspaper or periodical editor DEYVI SANTILLAN ([id number]) on 10/19/2019 2:34:48 PM Referred By: NYDIA Confirmed By:NEENA DOWELL MD
[2019-10-15 02:35] VITALS: BP 156/64; PULSE 77; RESP 23; O2SAT 97
== END 2019-10-15 02:43 | disposition home or self-care (01) ==
PROVIDERS: Emergency Provider Emergency Medicine; PCP Family Medicine
DX: R07.89 Other chest pain (principal); M54.9 Dorsalgia, unspecified; R79.1 Abnormal coagulation profile; I48.92 Unspecified atrial flutter; I10 Essential (primary) hypertension; I48.19 Other persistent atrial fibrillation; G47.33 Obstructive sleep apnea (adult) (pediatric); Z87.19 Personal history of other diseases of the digestive system; Z79.01 Long term (current) use of anticoagulants; Z79.899 Other long term (current) drug therapy
CPT/HCPCS: 36415; 71045; 80048; 80076; 83690; 84484; 85025; 85379; 85610; 93005; 96360; 96361; 99285; J7030; A4216; J2405

== ENCOUNTER → 2019-11-09 20:23 | Outpatient (CLI) | payer SELFPAY ==
[2019-10-06 07:54] VITALS: BMI 59.1
== END ==
PROVIDERS: PCP Family Medicine; Referring Provider Nurse Practitioner Acute Care; Visit Provider Nurse Practitioner Acute Care
DX: G47.33 Obstructive sleep apnea (adult) (pediatric) (principal)
CPT/HCPCS: 95811

== ENCOUNTER 2019-12-30 09:51 | Day surgery (SDC) | payer OTHER, SELFPAY ==
[2019-12-24 09:22] VITALS: BMI 64.3
[2019-12-24 11:34] LABS: International Normalized Ratio 2.1; Prothrombin Time (Protime)PT. 23.4 SECONDS (11.7-14.9)
[2019-12-24 11:49] LABS: Anion Gap 8 (5-15); BUN 25 mg/dL (7-18); BUN/Creat Ratio 24.8 RATIO (10-20); Calcium,Total 8.9 mg/dL (8.5-10.1); Chloride 101 mmol/L (98-107); Creatinine, Serum 1.01 mg/dL (0.70-1.30); EST Glomerular Filtration Rate 83 mL/min (>60); Est Glom Filt Rate - Afr Amer 101 mL/min (>60); Glucose 93 mg/dL (74-106); Potassium 3.6 mmol/L (3.5-5.1); Sodium Level 141 mmol/L (136-145)
[2019-12-29 10:39] VITALS: BMI 64.3
--- NOTE | 2019-12-29 12:56 | HP.PCM_ITS ---
History and Physical Date of Admission: 12/30/19 [facility] History of Present Illness Details: Details: The patient is a very pleasant 49 year old M nondiabetic, morbidly obese, with a history of hypertension, who denies obstructive sleep apnea, previously admitted to [facility] on 08/12/2019 with new onset lower abdominal pain. Patient originally presented to the emergency room to the emergency room with severe middle and left lower quadrant abdominal pain. A CT scan was obtained in the ER which showed the following results: 1. Acute inflammation and diverticulitis involving the sigmoid colon. There are signs of microperforation with tiny collections of gas adjacent to the abnormal sigmoid colon. 2. No CT evidence for abscess. 3. Fluid-filled colon suggesting diarrhea and possible additional infection. 4. Cholelithiasis. 5. Bilateral basilar airspace disease possibly representing pneumonia In addition the patient was found to be in atrial fibrillation with rapid ventricular response and mildly hypotensive. Patient was given IV fluids, and his heart rate gradually improved. Upon further history the patient states that he is aware when he goes in and out of atrial fibrillation, and has had episodes of these sensations for a number of years but never sought medical attention. He denies any previous cardiac catheterization, abnormal stress test, chest pain, angina or shortness of breath either previous to or during his atrial fibrillation. Patient feels much better with his heart going slower, and remai ns in atrial fibrillation by telemetry. His EKG showed atrial fibrillation with rapid ventricular response, no acute changes. Troponin were found to be negative.. Echocardiogram echocardiogram performed on 08/12/2019 showed the following results: Moderately dilated left ventricle. The estimated ejection fraction is 65 %. Unable to assess diastolic dysfunction due to arrhythmia. The left atrium is severely enlarged. The right atrium is moderately enlarged. Unable to estimate RV systolic pressure due to insufficient tricuspid regurgitant envelope. PT appears to be in atrial fibrillation. The study was technically difficult. Contrast injection was performed. There is no comparison study available. Patient then underwent a dobutamine stress echocardiogram on 08/12/2019 which was found to be negative. Given the concern of his microperforation, the patient was treated with Lovenox in case he deteriorated into hemo peritoneum, and started on diltiazem for heart rate control, in addition to his amlodipine, lisinopril and Lasix. The patient was treated with Flagyl and Levaquin and subsequently discharged home. On 09/09/2019 underwent a sleep study which demonstrated severe obstructive sleep apnea. On 11/09/2019 he was fitted for CPAP therapy. 09/01/2019 the patient's 30-day event monitor demonstrated essentially constant atrial fibrillation. He is awaiting DC cardioversion. From a cardiac standpoint he denies any chest pain, angina, shortness of breath. His abdominal pain is completely resolved. He is compliant with his BiPAP, and is awaiting consultation with pulmonary in the next 2 weeks., and is awaiting DC cardioversion 12/30/2019. He is compliant with his flecainide and diltiazem. In our office today his blood pressure is 130/90, and pulse is 88 and irregular. Physical exam demonstrates severe obesity, irregular rate and rhythm, and 1+ bilateral lower extremity edema. Lipids as of 08/14/2019 show an LDL of 48 and HDL of 30. EKG 09/01/2019 demonstrates atrial fibrillation with controlled ventricular response and PVCs. EKG dated 12/24/2019 shows atrial fibrillation with controlled ventricular response, QT corrected of 414 ms, low voltage in the limb leads. 30-day event monitor pretty much shows atrial fibrillation. [] Intake Vital Signs 12/24/19 Height 5 ft 10 in 12/24/19 Weight: 448 lb 12/24/19 BMI 64.3 12/24/19 BP 130/90 H 12/24/19 Blood Pressure Location Lt brachial 12/24/19 Position Sitting 12/24/19 Respiration 20 H 12/24/19 Pulse 88 12/24/19 Pulse Source Auscultation Intake Visit Reasons: *COME IN* UPDATE H&P DCCV Allergies cephalexin [From Keflex] Allergy (Verified 10/14/19 22:48) Rash Medications lisinopril 40 mg tablet 40 mg PO DAILY #30 tab 09/18/19 [Rx Confirmed 12/24/19] flecainide 100 mg tablet 50 mg PO Q12H #60 tab 09/29/19 [Rx Confirmed 12/24/19] metolazone 5 mg tablet 5 mg PO PRN PRN 09/29/19 [History Confirmed 12/24/19] warfarin 5 mg tablet 5 mg PO .COMPLEX #180 tab 11/11/19 [Rx Confirmed 12/24/19] warfarin 2.5 mg tablet 2.5 mg PO .COMPLEX #30 tab 11/20/19 [Rx Confirmed 12/24/19] diltiazem HCl 240 mg capsule,24 hr,extended release 240 mg PO DAILY #90 cap 12/24/19 [Rx Confirmed 12/24/19] furosemide 40 mg tablet 40 mg PO BID #180 tab 12/24/19 [Rx Confirmed 12/24/19] potassium chloride 10 mEq tablet,extended release 10 meq PO DAILY #90 tab 12/24/19 [Rx Confirmed 12/24/19] PFSH Medical History 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 Earl Rodríguez MD) Smoking Status: Never smoker ROS Const Const: Negative for fatigue, weakness, body ache, fever(s), headache(s), chills, frequent falls, night sweats, daytime sleepiness, difficulty sleeping, excessive sweating, weight gain, weight loss, increased appetite, poor appetite, anorexia or other Eyes Eyes: Negative for blind spots, loss of peripheral vision, transient loss of vision, blurry vision, change in vision, double vision, floaters, tunnel vision or other ENT ENT: Negative for headache(s), dizziness, hearing loss, tinnitus, Nosebleed/epistaxis, balance problems, post nasal drip, lip swelling, tongue swelling, bleeding gums, hoarseness, neck pain, dry mouth or other Cardio Chest Pain: No Resp Respiratory: Negative for SOB with activity, SOB at rest, SOB orthopnea\SOB lying down, Coughing up blood/hemoptysis, chest congestion, pain on inspiration, snoring, stridor, wheezing, crackles, paroxysmal nocturnal dyspnea or other GI GI: Negative nausea, vomiting, heartburn, constipation, belching, bloating, cramping, vomiting blood/hematemesis, bright, red blood in stools, black,tarry stools, loose stools, Difficulty Swallowing or other : Negative for hematuria, frequent nighttime urination/ nocturia, erectile dysfunction or abnormal vaginal bleeding Musc Musc: Negative for muscle aches/ myalgia, muscle weakness, joint pain or balance problems Skin Skin: Negative redness, non-healing lesions, rash, unusual bruising, skin ulcer, wounds, jaundice or other Neuro Neuro: Negative for dizziness, lightheadedness, near syncope, syncope, orthostatic symptoms, frequent falls, headache(s), weakness, confusion, memory loss, restless legs, blurry vision, double vision, vertigo, seizures, lack of coordination or other [place] Hematologic/Lymphatic: Negative for easy bleeding, easy bruising, enlarged lymph nodes or other Endo Endo: Negative for fatigue, cold intolerance, heat intolerance, excessive sweating, flushing, increased thirst/drinking, increased hunger, hair loss, hair growth or other Psych Psych: Negative for anxiety, depression, thoughts of harming anyone, thoughts of harming yourself, visual hallucinations, panic attacks or audible hallucinations Allergy Allergy/Immunology: Negative for throat swelling, Negative for tongue swelling, Negative for hives, Negative for rash, Negative for lip swelling Cardiology Exam Const Appearance: cooperative, healthy appearing and no acute distress Nutritional Appearance: well nourished Orientation: alert, oriented x3 and oriented to person Head Head: normal to inspection, normocephalic and atraumatic Nose: external nose normal Face and Sinus: face symmetric Mouth: oral mucosae normal Eyes General: appearance normal, both eyes and all related structures Eyelids: eyelids normal Conjunctivae: conjunctivae normal Pupils: PERRL and normal by confrontation EOM: EOM intact bilaterally Neck Neck: normal visual inspection and full ROM Carotids: normal carotid upstroke Chest Chest inspection: normal inspection of the chest Auscultation: Bilateral: Clear to Auscultation Cardio Palpation: normal PMI Rate: regular rate Rhythm: regular rhythm Heart sounds: S1 normal and S2 normal GI GI: normal to inspection, no hepatosplenomegaly and bowel sounds present Neuro General: alert, awake, oriented x3, CN's II-XI intact bilaterally and moves all extremities Skin Skin: no rashes or lesions noted Extremities Pulses: Normal: Right Femoral Pulse, Left Femoral Pulse, Right Dorsalis Pedis Pulse, Left Dorsalis Pedis Pulse, Right Posterior Tibial Pulse, Left Posterior Tibial Pulse, Right Radial Pulse, Left Radial Pulse Lower Extremity Edema: None: Bilateral Psych Psychological: normal affect Assessment & Plan 1. Atrial fibrillation with RVR I48.91 Plan 1. Atrial fibrillation: The patient is still in atrial fibrillation despite having his diverticulitis resolved, and is tolerating his Coumadin, flecainide and Cardizem well. He does have some lower extremity edema which apparently has worsened since his last visit and is about the same as when he was admitted initially. He reports that he is compliant with his Lasix. I recommend he continue his diltiazem, flecainide, and Coumadin. He is awaiting elective initial DC cardioversion on 12/30/2019. In addition I recommend increasing his Lasix to 40 mg twice a day and starting him on potassium 10 mEq p.o. daily. He will continue his lisinopril for his hypertension. Orders Orders: 12 Lead EKG performed by BMS Today 2. KAYLIN (obstructive sleep apnea) G47.33 Plan 2. Obstructive sleep apnea: The patient is awaiting consultation with pulmonary this upcoming month to adjust his BiPAP therapy. He reports that he is compliant with his BiPAP but is keeping him up at night and he feels worse. Hopefully we can make some adjustments that will improve his sleeping. 3. Return office in 6 months. This note was generated using a voice recognition system and there may be incorrect words, spelling or punctuation that were not noted when reviewing the office note prior to saving.
--- NOTE | 2019-12-30 12:10 | CARDIOVERS ---
Cardioversion Cardioversion: DC cardioversion summary: The patient was brought to the cardiac Toll Bridge Attendant holding area in the fasting state. The risk/benefits of the procedure were thoroughly explained to the patient and informed consent was obtained. Baseline EKG demonstrated atrial fibrillation with controlled ventricular response. Patient's INR today was therapeutic and has been consistently so several weeks in a row. The defibrillator pads were then placed in the AP position. With the assistance of Dr. Jose Ross, the patient was given several boluses of 40 mg of IV propofol. Once adequate sedation was obtained the patient received a single biphasic synchronized 200 J shock which unfortunately did not convert him to normal sinus rhythm. Patient then received several more rounds of IV propofol with Dr. Ross, and received a second 300 J synchronized biphasic shock which successfully converted him to normal sinus rhythm. This rhythm remained durable, and the defibrillator pads were removed. Conclusions: Successful Coumadin assisted DC cardioversion with first day 200, followed by a second 300 J biphasic synchronized shock which successfully converted him to normal sinus rhythm. Patient will continue his anticoagulation therapy and other antihypertensive and rate controlling medications as outlined in the [facility]. He will return in 1 week's time for an EKG in the office. If the patient's atrial fibrillation returns we may consider placing him on flecainide therapy for repeat cardioversion. I strongly encouraged him to use his CPAP therapy and we will make arrangements for the patient to see a traveling electrician to assist with his obstructive sleep apnea. No complications. Patient tolerate procedure well.
--- NOTE | 2019-12-30 13:23 | PCM.OP.PRO ---
Procedure Report Date of Procedure: 12/30/19 CONSCIOUS SEDATION REPORT DATE OF SERVICE: December 30, 2019 BRIEF HISTORY OF PRESENT ILLNESS: The patient is a 49-year-old male who presented to [facility] for an elective outpatient cardioversion due to underlying atrial fibrillation. The patient has never undergone a previous cardioversion. He denies any known prior anesthetic complications. His last surface echocardiogram revealed an ejection fraction of approximately 65%. The patient is currently systemically anticoagulated with an INR of 2.3 today. He does have a known history of obstructive sleep apnea, for which he is partially compliant with the use of nocturnal Pap therapy. PHYSICAL EXAMINATION: VITAL SIGNS: Reviewed and were acceptable. GENERAL: The patient is an obese male, in no apparent distress, speaking in full sentences. HEENT: Normocephalic, atraumatic. Mucous membranes are moist and pink. Good mouth opening noted. Trachea is midline. MPIII CHEST: S1, S2 irregularly irregular. No murmurs, rubs or gallops were noted. LUNGS: Clear to auscultation bilaterally without appreciable wheezes, rales or rhonchi. ABDOMEN: Soft, nontender, nondistended. Positive bowel sounds. EXTREMITIES: There is no clubbing, cyanosis or edema. ASA Class: II DESCRIPTION OF PROCEDURE: After confirmation of informed consent, the patient's anesthesia plan was reviewed in detail. Propofol was chosen. Risks and benefits were reviewed and the patient agreed to proceed. At 1139, the patient was given his first bolus of propofol. In total, the patient required 150 mg of propofol throughout the entire procedure to facilitate 2 separate attempts at cardioversion, the first at 200 J and the second at 300 J. This was eventually successful in achieving normal sinus rhythm. The patient was monitored until 1150, at which time he reached his baseline mental status and function. The patient tolerated the procedure well. COMPLICATIONS: None ESTIMATED BLOOD LOSS: None RECOMMENDATIONS: Okay to recover in usual fashion. 9xxxx: Other Procedure See Report - [id number]
== END 2019-12-30 13:05 | disposition home or self-care (01) ==
PROVIDERS: PCP Family Medicine; Referring Provider Internal Medicine Cardiovascular Disease; Visit Provider Internal Medicine Cardiovascular Disease
DX: I48.19 Other persistent atrial fibrillation (principal); G47.33 Obstructive sleep apnea (adult) (pediatric); I10 Essential (primary) hypertension; E66.01 Morbid (severe) obesity due to excess calories; Z68.44 Body mass index [BMI] 60.0-69.9, adult; Z87.19 Personal history of other diseases of the digestive system; Z87.01 Personal history of pneumonia (recurrent); Z79.01 Long term (current) use of anticoagulants; Z79.899 Other long term (current) drug therapy
CPT/HCPCS: 36415; 36416; 80048; 85610; 92960; 93005; J7040

== ENCOUNTER → 2020-01-06 10:18 | Outpatient (CLI) | payer OTHER, SELFPAY ==
[2019-12-29 10:39] VITALS: BMI 64.3
== END ==
PROVIDERS: PCP Family Medicine; Visit Provider Internal Medicine Cardiovascular Disease
DX: I48.19 Other persistent atrial fibrillation (principal)
CPT/HCPCS: 36415; 36416; 85610

== ENCOUNTER 2020-01-20 10:41 | Outpatient (CLI) | payer OTHER, SELFPAY ==
[2019-12-29 10:39] VITALS: BMI 64.3
[2020-01-19 11:22] VITALS: BMI 64.3
[2020-01-19 11:54] VITALS: BMI 65.0
[2020-01-20 10:51] LABS: Prothrombin Time Fingerstick 28.8 SEC (11.9-14.4)
--- NOTE | 2020-01-20 12:33 | CARDIOVERS ---
Cardioversion Cardioversion: DC cardioversion summary: Patient is a 49-year-old gentleman morbidly obese with obstructive sleep apnea and atrial flutter. He recently underwent a successful low-dose flecainide assisted DC cardioversion requiring 2 shocks. This was initially successful but when he returned to the office he was back in atrial flutter. His flecainide was increased to 100 mg p.o. twice daily and he continued his Coumadin therapy. He is recently initiated CPAP therapy and is doing well. In an attempt to resynchronize the patient to improve his cardiovascular status, a repeat DC cardioversion with a higher dose of flecainide was recommended. Patient was brought to the Patrol Inspector in the fasting state and the risk/benefits of the procedure were thoroughly explained to the patient and informed consent was obtained. The defibrillator pads were placed in the AP position. With the assistance of Dr. Zen Cabrera the patient received a total of 100 mg of IV propofol. Once adequate sedation was obtained the patient received a single 300 J biphasic shock which converted him from atrial fibrillation to normal sinus rhythm. This rhythm remained durable, and the defibrillator pads were removed. The patient spontaneously awoke, moves all 4 extremities tolerated the procedure well. Conclusions: Successful moderate dose flecainide assisted in Coumadin assisted DC cardioversion with a single 300 J biphasic synchronized shock. The patient remain on his current dose of flecainide and Coumadin. He will return in 1 week's time for an EKG. If the patient reverts back to atrial flutter would have a low threshold to refer him to Dr. Downing at [facility] for possible atrial flutter ablation so that he may be offloaded from his Coumadin and flecainide therapy going forward. No complications. Many thanks to Dr. Zen Cabrera.
--- NOTE | 2020-01-20 13:43 | PCM.OP.PRO ---
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 The patient reports no PO intake since midnight. The patient does have a history of obstructive sleep apnea. The patient reports no history of smoking or COPD. The patient denies any recent constitutional symptoms such as fevers, chills, nausea or vomiting. The patient denies previous anesthetic complications. Patient with preserved ejection fraction on last echocardiogram. Patient did have a recent cardioversion requiring 150 mg of propofol. Patient does report being compliant with anticoagulation therapy. PHYSICAL EXAMINATION: VITAL SIGNS: Reviewed and were acceptable. GENERAL: The patient is a male, in no apparent distress, speaking in full sentences. HEENT: Normocephalic, atraumatic. Mucous membranes are moist and pink. Good mouth opening noted. Trachea is midline. Good neck mobility. MP IV CHEST: S1, S2 irregularly irregular. No murmurs, rubs or gallops were noted. LUNGS: Clear to auscultation bilaterally without appreciable wheezes, rales or rhonchi. ABDOMEN: Soft, nontender, nondistended. Positive bowel sounds. EXTREMITIES: There is no clubbing, cyanosis or edema. ASA Class: II DESCRIPTION OF PROCEDURE: After confirmation of informed consent, the patient's anesthesia plan was reviewed in detail. Propofol was chosen. Risks and benefits were reviewed and the patient agreed to proceed. At 11:58 AM, the patient was given 40 mg of propofol. The patient required a total of 100 mg of propofol throughout the procedure to achieve appropriate sedation. The patient achieved an appropriate level of sedation and received 1 attempt synchronized cardioversion, at [address] Rodríguez at the bedside. This was successful in achieving normal sinus rhythm. The patient was monitored until 12:12 PM, at which time the patient reached their baseline mental status and function. The patient tolerated the procedure well. COMPLICATIONS: None ESTIMATED BLOOD LOSS: None RECOMMENDATIONS: Okay to recover in usual fashion. 9xxxx: Other Procedure See Report - [id number]
== END 2020-01-20 13:30 | disposition home or self-care (01) ==
PROVIDERS: PCP Family Medicine; Referring Provider Internal Medicine Cardiovascular Disease; Visit Provider Internal Medicine Cardiovascular Disease
DX: I48.19 Other persistent atrial fibrillation (principal); I48.92 Unspecified atrial flutter; I10 Essential (primary) hypertension; G47.33 Obstructive sleep apnea (adult) (pediatric); Z79.01 Long term (current) use of anticoagulants
CPT/HCPCS: 36416; 85610; 92960; 93005; J7040

== ENCOUNTER → 2020-01-27 10:46 | Outpatient (CLI) | payer OTHER, SELFPAY ==
[2019-12-29 10:39] VITALS: BMI 64.3
[2020-01-27 10:42] VITALS: BMI 65.0
[2020-01-27 11:43] LABS: Absolute Lymphocyte Count 1.71 X10^3/uL (0.83-4.51); Absolute Neutrophil Count 7.7 X10^3/uL (2.0-7.7); Basophil# 0.02 X10^3/uL; Basophil% 0.2 % (0-1); Eosinophil# 0.21 X10^3/uL; Hematocrit 42.2 % (40-54); Hemoglobin 13.6 g/dL (13.0-16.5); Lymphocyte # 1.71 X10^3/ul (4.0); Lymphocyte % 16.3 % (19-41); Mean Corp Hgb Conc 32.2 g/dL (32-36); Mean Corpuscular Hgb 27.3 pg (27.0-32.0); Mean Corpuscular Volume 84.7 fL (80-94); Mean Platelet Vol. 9.7 fl (6.2-12.0); Monocyte# 0.79 X10^3/uL; Monocyte% 7.5 % (0-10); NRBC Flagged by Analyzer 0 % (0-5); Neutrophil % 73.5 % (47-70); Platelet Count 247 K/mm3 (150-450); RBC Distribution Width CV 14.6 % (11.6-14.6); RBC Distribution Width SD 43.9 fl (35.1-43.9); Red Blood Count 4.98 M/mm3 (4.6-6.2); White Blood Count 10.5 K/mm3 (4.4-11.0)
[2020-01-27 11:53] LABS: International Normalized Ratio 2.2; Prothrombin Time (Protime)PT. 24.3 SECONDS (11.7-14.9)
[2020-01-27 12:05] LABS: Anion Gap 8 (5-15); BUN 20 mg/dL (7-18); BUN/Creat Ratio 22.5 RATIO (10-20); Calcium,Total 8.8 mg/dL (8.5-10.1); Chloride 98 mmol/L (98-107); Creatinine, Serum 0.89 mg/dL (0.70-1.30); EST Glomerular Filtration Rate 96 mL/min (>60); Est Glom Filt Rate - Afr Amer 117 mL/min (>60); Glucose 87 mg/dL (74-106); Potassium 3.7 mmol/L (3.5-5.1); Sodium Level 138 mmol/L (136-145)
[2020-01-27 12:12] LABS: BNP,B-Type NATRIURETIC PEPTIDE 27.5 pg/mL (0-100)
== END ==
PROVIDERS: Physician Assistant Medical; PCP Family Medicine; Referring Provider Internal Medicine Cardiovascular Disease; Visit Provider Internal Medicine Cardiovascular Disease
DX: I48.19 Other persistent atrial fibrillation (principal); Z79.01 Long term (current) use of anticoagulants; R06.00 Dyspnea, unspecified
CPT/HCPCS: 36415; 80048; 83880; 85025; 85610

== ENCOUNTER → 2021-03-02 11:47 | Outpatient (CLI) | payer OTHER, SELFPAY ==
[2021-03-02 11:19] VITALS: BMI 68.6
[2021-03-02 13:20] LABS: BNP,B-Type NATRIURETIC PEPTIDE 50.2 pg/mL (0-100)
[2021-03-02 13:28] LABS: Anion Gap 6 (5-15); BUN 19 mg/dL (7-18); BUN/Creat Ratio 18.4 RATIO (10-20); Calcium,Total 8.7 mg/dL (8.5-10.1); Chloride 102 mmol/L (98-107); Creatinine, Serum 1.03 mg/dL (0.70-1.30); EST Glomerular Filtration Rate 81 mL/min (>60); Est Glom Filt Rate - Afr Amer 98 mL/min (>60); Glucose 105 mg/dL (74-106); Potassium 3.7 mmol/L (3.5-5.1); Sodium Level 140 mmol/L (136-145)
== END ==
PROVIDERS: PCP Family Medicine; Referring Provider Internal Medicine Cardiovascular Disease; Visit Provider Internal Medicine Cardiovascular Disease
DX: I48.0 Paroxysmal atrial fibrillation (principal); I10 Essential (primary) hypertension
CPT/HCPCS: 36415; 80048; 83880

== ENCOUNTER 2021-05-13 13:38 | Inpatient (IN) | payer OTHER, SELFPAY ==
[2021-05-13 13:39] VITALS: BP 145/72; PULSE 77; RESP 20; TEMP 36.7; O2SAT 93; BMI 68.5
--- NOTE | 2021-05-13 14:03 | RAD_ITS ---
STUDY: X-RAY - LUMBAR SPINE REASON FOR EXAM: Male, 50 years old. pain TECHNIQUE: 1 view(s) of the lumbar spine were obtained. COMPARISON: None FINDINGS: Single AP view was submitted for evaluation. There is no substantial scoliosis. There is multilevel endplate spondylosis of the lumbar vertebrae. RAD/Spine 1 View Any Level IMPRESSION: Limited examination. Electronically Signed: Armando Vela MD at 15:17 EDT Tel , Service support ,
--- NOTE | 2021-05-13 14:04 | EDS_ITS ---
HPI History of Present Illness Chief Complaint: Back Informant: patient and EMS Onset/Context/Timing Onset: Days (2) Context: Sudden Onset (When getting up out of a chair) Timing: Continuous Quality: Aching Location: Lumbar and Right Leg Current Severity: Severe Maximum Severity: Severe Worsened by: improves with Movement, Ambulation and Bending Relieved by: Sitting (a little) Associated Symptoms Associated Symptoms: Radiation to Right Leg and Constipation; Negative for Numbness, Tingling, Radiation to Left Leg, Fever, Abdominal Pain, Dysuria, Urinary Retention, Urinary Incontinence and Fecal Incontinence Narrative Narrative: 50-year-old morbidly obese [facility] patient states he has a history of sciatica radiating down into the right lower extremity, gets it maybe once a year, usually resolves on day #2 after starting prednisone which he started yesterday. His doctor called it in. He states the pain has been getting worse and is severe today. He denies any bowel or bladder dysfunction. He was feeling kind of constipated and was able to go and thought maybe it was feeling a little bit better but then he went to get up and walk and he was unable due to the pain only. Denies any weakness or numbness. Pain goes into his right buttock mostly in, down into the ankle without any numbness. Denies any injury or fall lately. [facility] Medical History Atrial fibrillation with RVR (08/11/19) Colitis Diverticulitis Essential hypertension Hypertension [facility] current use of anticoagulant Paroxysmal atrial fibrillation Perforated diverticulum Perforation of sigmoid colon due to diverticulitis Persistent atrial fibrillation Pneumonia Super-super obese Home Medications metolazone 5 mg tablet 5 mg PO PRN PRN 09/29/19 [History Last Taken Unknown] furosemide 40 mg tablet 40 mg PO DAILY #90 tab 07/18/20 [Rx Last Taken Unknown] lisinopril 40 mg tablet 40 mg PO DAILY #90 tab 07/18/20 [Rx Last Taken Unknown] flecainide 100 mg tablet 100 mg PO Q12H #180 tab 03/02/21 [Rx Last Taken Unknown] potassium chloride 10 mEq tablet,extended release 10 meq PO DAILY #90 tab 03/02/21 [Rx Last Taken Unknown] warfarin 10 mg tablet 10 mg PO DAILY #90 tab 03/02/21 [Rx Last Taken Unknown] diazepam 2 mg PO DAILY PRN 05/13/21 [History Last Taken Unknown] diltiazem HCl 240 mg PO DAILY PRN PRN 05/13/21 [History Last Taken Unknown] prednisone See Taper PO DAILY 05/13/21 [History Last Taken Unknown] Allergy/AdvReac Type Severity Reaction Status Date / Time cephalexin [From Keflex] Allergy Rash Verified 05/13/21 13:47 Family History Father Atrial fibrillation Sister Atrial fibrillation Sister Atrial fibrillation Surgical History History of cardioversion (01/20/20) History of tonsillectomy Social History Smoking Status: Never smoker ROS ROS ED Constitutional Constitutional ED: Denies chills or fever(s) Gastrointestinal Gastrointestinal: Denies abdominal pain, constipation, fecal incontinence, nausea or vomiting Genitourinary Genitourinary ED: Reports other Details: no urinary retention ; Denies abdominal discomfort or urinary incontinence Musculoskeletal Musculoskeletal: Reports as per HPI and back pain; Denies neck pain Integumentary Denies rash or wounds Neurologic Neurologic: Denies headache(s), paresthesias or weakness EXAM Physical Exam Const Vital Signs: 05/13/21 13:39 05/13/21 14:23 05/13/21 14:26 Temperature 98.1 F Temperature Source Oral Pulse Rate 77 Respiratory Rate 20 H Blood Pressure 145/72 H Blood Pressure Mean 96 Pulse Ox 93 87 91 Oxygen Delivery Method Room Air Room Air Nasal Cannula Oxygen Flow Rate (L/min) 3 Positive well nourished and well developed General Appearance ED: well developed and NAD HEENT Negative for trauma or tenderness Eyes PERRL and EOMs intact bilaterally Neck full ROM and supple GI normal to inspection, nondistended, normoactive bowel sounds, soft to palpation and non-tender Back/Spine normal to inspection Thoracic Spine / Upper Back: paraspinal muscle tenderness Lumbar Spine / Lower Back: ROM limited and straight leg raise negative bilaterally Extremity normal to inspection, full ROM and no pedal edema Extremity Narrative: Full range of motion of the right hip with knee bent up with mild hip flexion, without any groin/hip joint pain, even with internal/external rotation. Straight leg raises cause increased back and buttock pain without reproducing radicular symptoms. Neuro oriented x3 and no sensory deficits noted Sensorium / Orientation: alert Motor Exam: strength 5/5 throughout and clonus absent Deep Tendon Reflexes: Rt Patellar (L4): 1+, Lt Patellar (L4): 1+, Rt Ankle (S1): 1+ and Lt Ankle (S1): 1+ Deep Tendon Reflexes Back: Rt Patellar (L4): 1+, Lt Patellar (L4): 1+, Rt Ankle (S1): 1+ and Lt Ankle (S1): 1+ Plantar Reflex: Downgoing: bilateral Psych mental status grossly normal and thought process normal Skin no rashes or lesions noted and no wounds MDM MDM MDM Narrative Medical decision making narrative: Given the patient's weight, which does limit the exam significantly, I obtained lumbosacral spine films to rule out compression fracture, while providing medications for symptom control. They are negative albeit limited due to the patient's size. On reexamination he states his pain is improved, down to a 4-5, however he states he is not able to stand or walk. He was going to try to get out of bed here in the emergency department but he was in so much pain that he was afraid that he might fall due to his size and the amount of pain he is in and he is asking for admission. He was advised that assuming this is for pain control he will meet criteria for 23-hour obser vation, and then if he still is unable to stand/walk, short-term rehab/residential would be the next option and he was amenable if needed. Radiography X-Ray: LS SPine (1-view), Read by ED Physician, No Fracture and Normal Bony Alignment Diagnostic Testing: Radiology Impression Spine X-Ray 05/13/21 14:03 IMPRESSION: Limited examination. Electronically Signed: Armando Vela MD at 15:17 EDT Tel , Service support , Discharge Plan Dx/Rx/DC Orders Clinical Impression: Acute low back pain with right-sided sciatica, Inability to walk, Morbid obesity, Intractable back pain Disposition Disposition: Acute Care [facility]
[2021-05-13] MEDS: Ondansetron 4 MG/2 ML Vial IV (14:19)
[2021-05-13] MEDS: morphine 10 MG/ML Syringe IV (14:20)
[2021-05-13 14:23] VITALS: O2SAT 87
[2021-05-13 14:26] VITALS: O2SAT 91
[2021-05-13 16:18] VITALS: BP 103/59; PULSE 59; RESP 20; TEMP 36.6; O2SAT 94
[2021-05-13 16:23] LABS: Absolute Lymphocyte Count 0.83 X10^3/uL (0.83-4.51); Basophil# 0.03 X10^3/uL; Basophil% 0.2 % (0-1); Hematocrit 42.6 % (40-54); Hemoglobin 13.6 g/dL (13.0-16.5); Lymphocyte # 0.83 X10^3/ul (0.83-4.51); Lymphocyte % 6.2 % (19-41); Mean Corp Hgb Conc 31.9 g/dL (32-36); Mean Corpuscular Hgb 26.8 pg (27.0-32.0); Mean Platelet Vol. 9.7 fl (6.2-12.0); Monocyte# 0.42 X10^3/uL; Monocyte% 3.1 % (0-10); NRBC Flagged by Analyzer 0 % (0-5); Neutrophil # 12.02 X10^3/uL (2.7-7.7); Neutrophil % 89.1 % (47-70); Platelet Count 268 K/mm3 (150-450); RBC Distribution Width CV 15.1 % (11.6-14.6); RBC Distribution Width SD 46.1 fl (35.1-43.9); Red Blood Count 5.07 M/mm3 (4.6-6.2); White Blood Count 13.5 K/mm3 (4.4-11.0)
[2021-05-13 16:39] LABS: Anion Gap 5 (5-15); BUN 19 mg/dL (7-18); BUN/Creat Ratio 23.8 RATIO (10-20); Calcium,Total 8.5 mg/dL (8.5-10.1); Chloride 109 mmol/L (98-107); EST Glomerular Filtration Rate 109 mL/min (>60); Est Glom Filt Rate - Afr Amer 131 mL/min (>60); Glucose 128 mg/dL (74-106); Potassium 4.3 mmol/L (3.5-5.1); Sodium Level 142 mmol/L (136-145)
--- NOTE | 2021-05-13 17:22 | PCM.HP.STD ---
HPI - General General Date of Admission: 05/13/21 HPI Narrative RASTA BAUER, is a 50 M with a history of morbid obesity, hypertension and paroxysmal atrial fibrillation and who presents with 2 days history of sudden onset of lower mid back pain that is now radiating to the right lower extremity, specifically to the knee, lateral aspect of the leg and ankle/lateral malleolus. Denies any specific weakness or numbness in the extremity. Denies any bladder or bowel incontinence or other sphincteric dysfunction. Denies any fever or chills. States symptoms started after sitting in a chair for a prolonged time. Denies any direct trauma to the back. [facility] Medical History Atrial fibrillation with RVR (08/11/19) Colitis Diverticulitis Essential hypertension Hypertension [facility] current use of anticoagulant Paroxysmal atrial fibrillation Perforated diverticulum Perforation of sigmoid colon due to diverticulitis Persistent atrial fibrillation Pneumonia Super-super obese Home Medications metolazone 5 mg tablet 5 mg PO PRN PRN 09/29/19 [History Last Taken Unknown] furosemide 40 mg tablet 40 mg PO DAILY #90 tab 07/18/20 [Rx Last Taken Unknown] lisinopril 40 mg tablet 40 mg PO DAILY #90 tab 07/18/20 [Rx Last Taken Unknown] flecainide 100 mg tablet 100 mg PO Q12H #180 tab 03/02/21 [Rx Last Taken Unknown] potassium chloride 10 mEq tablet,extended release 10 meq PO DAILY #90 tab 03/02/21 [Rx Last Taken Unknown] warfarin 10 mg tablet 10 mg PO DAILY #90 tab 03/02/21 [Rx Last Taken Unknown] diazepam 2 mg PO DAILY PRN 05/13/21 [History Last Taken Unknown] diltiazem HCl 240 mg PO DAILY PRN PRN 05/13/21 [History Last Taken Unknown] prednisone See Taper PO DAILY 05/13/21 [History Last Taken Unknown] Allergy/AdvReac Type Severity Reaction Status Date / Time cephalexin [From Keflex] Allergy Rash Verified 05/13/21 13:47 Family History Father Atrial fibrillation Sister Atrial fibrillation Sister Atrial fibrillation Surgical History History of cardioversion (01/20/20) History of tonsillectomy Social History Smoking Status: Never smoker ROS ROS Narrative Denies any chest pain or shortness of breath. All other systems reviewed and essentially negative. Vital Signs Vital Signs Vital Signs: 05/13/21 13:39 05/13/21 14:23 05/13/21 14:26 Temperature 36.7 C Temperature Source Oral Pulse Rate 77 Respiratory Rate 20 H Blood Pressure 145/72 H Blood Pressure Mean 96 Pulse Ox 93 87 91 Oxygen Delivery Method Room Air Room Air Nasal Cannula Oxygen Flow Rate (L/min) 3 05/13/21 16:18 Temperature 36.6 C Temperature Source Temporal Pulse Rate 59 L Respiratory Rate 20 H Blood Pressure 103/59 L Blood Pressure Mean 73 Pulse Ox 94 Oxygen Delivery Method Nasal Cannula Oxygen Flow Rate (L/min) 2 Weight Weight: 229.3 kg Body Mass Index (BMI) 68.5 Physical Exam Narrative General. Morbidly obese, painful distress, restless, appears uncomfortable. Pleasant and appreciative gentleman nonetheless. HEENT. Oral mucosa moist. No pallor or jaundice. Neck. Supple. Heart. No murmurs, first and second heart sounds heard. Lungs. Mild expiratory wheezing. Abdomen. Obese. Moves with respiration. Extremities. No significant pedal edema. Back. Tenderness in the lower lumbosacral spine in the center and also slightly to the right. Neurology. Conscious and alert and oriented x3. Cranial nerves II through XII grossly intact. Power in both upper extremities 5 out of 5. Dorsiflexion and plantarflexion of the right foot is 5/5. Deep tendon reflexes diminished in both lower extremities. Straight leg raising for the right lower extremity was positive at 30 degrees. Results Lab / Micro Data Result Diagrams: 05/13/21 16:15 05/13/21 16:15 Labs: Laboratory Results - last 24 hr 05/13/21 16:15: WBC 13.5 H, RBC 5.07, Hgb 13.6, Hct 42.6, MCV 84.0, MCH 26.8 L, MCHC 31.9 L, RDW Std Deviation 46.1 H, RDW Coeff of Tg 15.1 H, Plt Count 268, MPV 9.7, Immature Gran % (Auto) 1.400 H, Neut % (Auto) 89.1 H, Lymph % (Auto) 6.2 L, [place] % (Auto) 3.1, Eos % (Auto) 0.0, Baso % (Auto) 0.2, Absolute Neuts (auto) 12.0 H, Absolute Lymphs (auto) 0.83, Nucleated RBC % 0 05/13/21 16:15: Sodium 142, Potassium 4.3, Chloride 109 H, Carbon Dioxide 28.0, Anion Gap 5, BUN 19 H, Creatinine 0.80, Estim Creat Clear Calc 119.90, Est GFR (MDRD) Af Amer 131, Est GFR (MDRD) Non-Af 109, BUN/Creatinine Ratio 23.8 H, Glucose 128 H, Calcium 8.5 Radiology Impression Spine X-Ray 05/13/21 14:03 IMPRESSION: Limited examination. Electronically Signed: Armando Vela MD at 15:17 EDT Tel , Service support , Assessment & Plan Assessment/Plan (1) Acute low back pain with right-sided sciatica: PLAN: Most likely secondary to herniated intervertebral disc with compressive radiculopathy of L5/S1. Consult spine Ortho. Analgesics including with anticonvulsant therapy with gabapentin. Physical and occupational therapy to see and evaluate. (2) Morbid obesity: PLAN: Life-Style modifications as able. (3) Paroxysmal atrial fibrillation: PLAN: In sinus rhythm at this time. On antiarrhythmic therapy with flecainide. Chronic anticoagulation with warfarin. We will hold anticoagulation just in case surgery is indicated. Charges/Coding Visit Charges Inpatient E&M: 56435 Init Hosp L3
[2021-05-13 18:00] VITALS: BP 119/65; PULSE 58; RESP 12; O2SAT 96
[2021-05-13 18:45] VITALS: BMI 67.1
[2021-05-13 18:51] VITALS: BP 150/78; PULSE 87; RESP 22; TEMP 36.7; O2SAT 97
[2021-05-13] MEDS: dexAMETHasone 4 MG/ML Vial IV (19:35)
[2021-05-13] MEDS: Acetaminophen 500 MG Tablet 1000 MG PO (19:35)
[2021-05-13] MEDS: oxyCODONE 5 MG Tablet 10 MG PO (19:37)
[2021-05-13] MEDS: 0.9% Saline Lock 10 ML Syringe IV (19:38)
[2021-05-13] MEDS: Flecainide 100 MG Tablet PO (21:32)
[2021-05-13] MEDS: Nystatin Powder 15gm Bottle 1 APPLIC TOPICAL (22:11)
[2021-05-14 02:15] VITALS: BP 121/64; PULSE 62; RESP 18; TEMP 36.8; O2SAT 99
[2021-05-14] MEDS: oxyCODONE 5 MG Tablet 10 MG PO ×3 (05:07→22:11)
[2021-05-14] MEDS: Acetaminophen 500 MG Tablet 1000 MG PO ×3 (05:08→22:08)
[2021-05-14] MEDS: dexAMETHasone 4 MG/ML Vial IV (05:08)
[2021-05-14 07:05] LABS: Absolute Lymphocyte Count 0.81 X10^3/uL (0.83-4.51); Absolute Neutrophil Count 10.4 X10^3/uL (2.0-7.7); Basophil# 0.01 X10^3/uL; Basophil% 0.1 % (0-1); Hematocrit 41.4 % (40-54); Hemoglobin 12.8 g/dL (13.0-16.5); Lymphocyte # 0.81 X10^3/ul (0.83-4.51); Lymphocyte % 6.8 % (19-41); Mean Corp Hgb Conc 30.9 g/dL (32-36); Mean Corpuscular Hgb 26.4 pg (27.0-32.0); Mean Corpuscular Volume 85.5 fL (80-94); Mean Platelet Vol. 10.2 fl (6.2-12.0); Monocyte# 0.53 X10^3/uL; Monocyte% 4.5 % (0-10); NRBC Flagged by Analyzer 0 % (0-5); Neutrophil # 10.41 X10^3/uL (2.7-7.7); Neutrophil % 87.4 % (47-70); Platelet Count 263 K/mm3 (150-450); RBC Distribution Width CV 15.3 % (11.6-14.6); RBC Distribution Width SD 47.5 fl (35.1-43.9); Red Blood Count 4.84 M/mm3 (4.6-6.2); White Blood Count 11.9 K/mm3 (4.4-11.0)
[2021-05-14 07:21] LABS: ALB/GLOB Ratio 0.8 RATIO (0.9-2.4); AST(SGOT) 14 U/L (15-37); Alanine Aminotransfer ALT/SGPT 25 U/L (16-61); Albumin, Serum 2.8 g/dL (3.2-5.0); Alkaline Phosphatase 76 U/L (45-117); Anion Gap 3 (5-15); BUN 21 mg/dL (7-18); BUN/Creat Ratio 22.7 RATIO (10-20); Calcium,Total 7.9 mg/dL (8.5-10.1); Chloride 107 mmol/L (98-107); Creatinine, Serum 0.93 mg/dL (0.70-1.30); EST Glomerular Filtration Rate 91 mL/min (>60); Est Glom Filt Rate - Afr Amer 110 mL/min (>60); Estimated Creatinine Clearance 103.14 ml/min; Globulin 3.7 g/dL (2.2-4.2); Glucose 132 mg/dL (74-106); Potassium 4.4 mmol/L (3.5-5.1); Protein, Total 6.5 g/dL (6.4-8.2); Sodium Level 140 mmol/L (136-145)
[2021-05-14 07:27] VITALS: O2SAT 99
[2021-05-14] MEDS: dilTIAZem CD 240 MG Capsule PO (08:47)
[2021-05-14] MEDS: Flecainide 100 MG Tablet PO ×2 (08:47→22:08)
[2021-05-14] MEDS: Potassium Chloride Oral Tablet 10 MEQ PO (08:47)
[2021-05-14] MEDS: Nystatin Powder 15gm Bottle 1 APPLIC TOPICAL ×2 (08:48→22:09)
[2021-05-14] MEDS: Gabapentin 300 MG Capsule PO ×3 (08:48→17:05)
[2021-05-14] MEDS: Lisinopril 40 MG Tablet PO (08:48)
[2021-05-14 08:50] VITALS: BP 110/58; PULSE 52; RESP 16; TEMP 36.6; O2SAT 96
[2021-05-14 09:39] LABS: International Normalized Ratio 1.9; Prothrombin Time (Protime)PT. 21.4 SECONDS (11.7-14.9)
--- NOTE | 2021-05-14 10:34 | PCS.PANDOC ---
PANDEMIC DOCUMENTATION INITIATED: Date: 04/10/2021 Time: 190
[2021-05-14] MEDS: Furosemide 40 MG Tablet PO (11:04)
[2021-05-14] MEDS: predniSONE 20 MG Tablet 60 MG PO (11:04)
--- NOTE | 2021-05-14 13:02 | PN.HOSP_ITS ---
Subjective Subjective Still with back pain rating down to his right ankle. States that this is similar to his prior bouts of sciatica but more severe. Patient today was sitting working on a buggy and when he got up he started experiencing the pain. Got up and could only get 3 feet away from the bed with therapy. Objective Data Objective Data Vital Signs: Vital Signs Temp Pulse Resp BP Pulse Ox 36.6 C 52 L 16 110/58 L 96 05/14/21 08:50 05/14/21 08:50 05/14/21 08:50 05/14/21 08:50 05/14/21 08:50 Oxygen Flow Rate (L/min) 2 Oxygen Delivery Method Room Air Weight: 224.4 kg Body Mass Index (BMI) 67.1 Intake & Output: Intake and Output for Last 24 Hours 05/12/21 05/13/21 05/14/21 23:59 23:59 23:59 Intake Total 350 / 350 Output Total 675 / 675 Balance -325 / -325 Lab / Micro Data Result Diagrams: 05/14/21 06:24 05/14/21 06:24 Labs: Laboratory Results - last 24 hr 05/13/21 16:15: WBC 13.5 H, RBC 5.07, Hgb 13.6, Hct 42.6, MCV 84.0, MCH 26.8 L, MCHC 31.9 L, RDW Std Deviation 46.1 H, RDW Coeff of Tg 15.1 H, Plt Count 268, MPV 9.7, Immature Gran % (Auto) 1.400 H, Neut % (Auto) 89.1 H, Lymph % (Auto) 6.2 L, [place] % (Auto) 3.1, Eos % (Auto) 0.0, Baso % (Auto) 0.2, Absolute Neuts (auto) 12.0 H, Absolute Lymphs (auto) 0.83, Nucleated RBC % 0 05/13/21 16:15: Sodium 142, Potassium 4.3, Chloride 109 H, Carbon Dioxide 28.0, Anion Gap 5, BUN 19 H, Creatinine 0.80, Estim Creat Clear Calc 119.90, Est GFR (MDRD) Af Amer 131, Est GFR (MDRD) Non-Af 109, BUN/Creatinine Ratio 23.8 H, Glucose 128 H, Calcium 8.5 05/14/21 06:24: WBC 11.9 H, RBC 4.84, Hgb 12.8 L, Hct 41.4, MCV 85.5, MCH 26.4 L , MCHC 30.9 L, RDW Std Deviation 47.5 H, RDW Coeff of Tg 15.3 H, Plt Count 263, MPV 10.2, Immature Gran % (Auto) 1.200 H, Neut % (Auto) 87.4 H, Lymph % (Auto) 6.8 L, [place] % (Auto) 4.5, Eos % (Auto) 0.0, Baso % (Auto) 0.1, Absolute Neuts (auto) 10.4 H, Absolute Lymphs (auto) 0.81 L, Nucleated RBC % 0 05/14/21 06:24: Sodium 140, Potassium 4.4, Chloride 107, Carbon Dioxide 30.0, A nion Gap 3 L, BUN 21 H, Creatinine 0.93, Estim Creat Clear Calc 103.14, Est GFR (MDRD) Af Amer 110, Est GFR (MDRD) Non-Af 91, BUN/Creatinine Ratio 22.7 H, Glucose 132 H, Calcium 7.9 L, Total Bilirubin 0.30, AST 14 L, ALT 25, Alkaline Phosphatase 76, Total Protein 6.5, Albumin 2.8 L, Globulin 3.7, Albumin/Globulin Ratio 0.8 L 05/14/21 09:24: PT 21.4 H, INR 1.9 Radiography Diagnostic Testing: Radiology Impression Spine X-Ray 05/13/21 14:03 IMPRESSION: Limited examination. Electronically Signed: Armando Vela MD at 15:17 EDT Tel , Service support , Physical Exam Const alert Resp normal respiratory effort, no retractions, no use of accessory muscles and clear to auscultation bilaterally Cardio regular rate, regular rhythm, S1 normal heart sound and S2 normal heart sound GI normal to inspection, nondistended, normoactive bowel sounds, soft to palpation, non-tender and non-distended Extremity normal to inspection Neuro Neuro Narrative: Sensation intact in lower extremity Motor Exam: strength 5/5 throughout Assessment & Plan Assessment/Plan (1) Acute low back pain with right-sided sciatica: QUALIFIERS: Back pain laterality: right Qualified Code(s): M54.41 - Lumbago with sciatica, right side PLAN: 1. Acute right radicular pain. Improved currently. Patient was put on dexamethasone but patient has no neurologic deficits. Will switch him over to prednisone. Anticipate conservative measures at this point in time. Patient has no red flag findings including bowel or bladder incontinence at this time. Strength and sensation appear to be intact. Continue with steroids as well as therapy evaluation. Spines been consulted but I do not anticipate any surgical necessity at this time. Suspect related with disc herniation 2. Morbid obesity BMI is 67 Complicates care. Additionally, patient cannot have any kind additional imaging because of his large size 3. Debility Continue PT and OT Thus far therapy is recommending outpatient but unclear if we get the patient able to get out of the hospital to home. Would want to see the patient ambulating more regularly possibly with a walker if able. Charges/Coding Visit Charges Inpatient E&M: 17552 Subs Hosp L2
[2021-05-14 15:20] VITALS: BP 112/50; PULSE 55; RESP 18; TEMP 36.8; O2SAT 92
[2021-05-14 20:32] VITALS: BP 138/71; PULSE 69; RESP 18; TEMP 37.2; O2SAT 94
[2021-05-14] MEDS: Senna/Docusate Sodium 1 Tablet 2 TABLET PO (22:07)
[2021-05-15 02:51] VITALS: BP 122/61; PULSE 64; RESP 18; TEMP 36.4; O2SAT 92
[2021-05-15] MEDS: oxyCODONE 5 MG Tablet 10 MG PO (04:59)
[2021-05-15] MEDS: Acetaminophen 500 MG Tablet 1000 MG PO (04:59)
[2021-05-15 07:09] VITALS: O2SAT 93
[2021-05-15] MEDS: dilTIAZem CD 240 MG Capsule PO (07:53)
[2021-05-15] MEDS: Nystatin Powder 15gm Bottle 1 APPLIC TOPICAL (07:53)
[2021-05-15] MEDS: Furosemide 40 MG Tablet PO (07:53)
[2021-05-15] MEDS: Potassium Chloride Oral Tablet 10 MEQ PO (07:54)
[2021-05-15] MEDS: Lisinopril 40 MG Tablet PO (07:54)
[2021-05-15] MEDS: Gabapentin 300 MG Capsule PO ×2 (07:54→11:13)
[2021-05-15 07:55] VITALS: BP 124/67; PULSE 70; RESP 16; TEMP 36.7; O2SAT 92
[2021-05-15] MEDS: Flecainide 100 MG Tablet PO (07:55)
[2021-05-15] MEDS: predniSONE 20 MG Tablet 60 MG PO (07:56)
--- NOTE | 2021-05-15 10:09 | PCM.DC ---
Discharge Instructions Diet Discharge Diet: No restrictions Activity Discharge Activity: Return to Normal Activity (no heavy lifting until symptoms resolved. ) Dressing / Incision Call your doctor if you observe: - (worsening back pain. acute onset of bowel or bladder incontinence. ) Follow Up Care Test Results: Test results from this visit will be discussed in further detail at your follow-up appointment, if applicable. Discharge Plan Admission Admit Date/Time: 05/13/21 17:11 Primary Reason for Your Visit: back pain Attending Provider: Aniceto Chappell Primary Care Provider: Guicho Floyd Discharge Orders/Prescriptions Prescriptions: New gabapentin 300 mg Capsule 300 mg PO TIDCM Qty: 30 RF: 0 oxycodone 10 mg tablet 10 mg PO Q6H PRN (Reason: pain (scale score 7-10)) 3 Days Qty: 12 RF: 0 prednisone 10 mg tablet 10 mg PO DAILY Qty: 42 RF: 0 acetaminophen 500 mg capsule 1,000 mg PO Q8H PRN PRN (Reason: pain) Qty: 1 RF: 0 Continued metolazone 5 mg tablet 5 mg PO PRN PRN (Reason: edema) RF: 0 furosemide 40 mg tablet 40 mg PO DAILY Qty: 90 RF: 3 lisinopril 40 mg tablet 40 mg PO DAILY Qty: 90 RF: 3 flecainide 100 mg tablet 100 mg PO Q12H Qty: 180 RF: 3 potassium chloride 10 mEq tablet extended release 10 meq PO DAILY Qty: 90 RF: 3 warfarin 10 mg tablet 10 mg PO DAILY Qty: 90 RF: 3 diltiazem HCl 240 mg capsule,extended release 24 hr 240 mg PO DAILY PRN PRN (Reason: Anxiety) RF: 0 diazepam 2 mg tablet 2 mg PO DAILY PRN (Reason: Anxiety) RF: 0 Discontinued prednisone 10 mg Tablets,Dose Pack See Taper mg PO DAILY RF: 0 Referrals / Follow Up: Guicho Floyd MD [Primary Care Provider] - Within 2 Weeks Disposition Disposition (needs filled in before D/C Order can be placed): Home, Self Care
--- NOTE | 2021-05-15 10:17 | PCM.DC.SUM ---
Providers Date of Admission: 05/13/21 Primary Care Physician: Dr. Guicho Floyd MD Reason For Visit: INTRACTABLE PAIN, LOW BACK PAIN W/ R SCIATICA Diagnosis Discharge Diagnosis (1) Acute low back pain with right-sided sciatica: Status: Acute Code(s): M54.41 - Lumbago with sciatica, right side Qualifiers: Back pain laterality: right Qualified Code(s): M54.41 - Lumbago with sciatica, right side Medications at Discharge Home Medications metolazone 5 mg tablet 5 mg PO PRN PRN 09/29/19 furosemide 40 mg tablet 40 mg PO DAILY #90 tab 07/18/20 lisinopril 40 mg tablet 40 mg PO DAILY #90 tab 07/18/20 flecainide 100 mg tablet 100 mg PO Q12H #180 tab 03/02/21 potassium chloride 10 mEq tablet,extended release 10 meq PO DAILY #90 tab 03/02/21 warfarin 10 mg tablet 10 mg PO DAILY #90 tab 03/02/21 diazepam 2 mg PO DAILY PRN 05/13/21 diltiazem HCl 240 mg PO DAILY PRN PRN 05/13/21 acetaminophen 1,000 mg PO Q8H PRN PRN #1 cap 05/15/21 gabapentin 300 mg PO TIDCM #30 cap 05/15/21 oxycodone 10 mg PO Q6H PRN 3 Days #12 tab 05/15/21 prednisone 10 mg PO DAILY #42 tab 05/15/21 Hospital Course Operations None Procedures None Summary of Care Provided Minutes Spent on Discharge: 28 Hospital Course: 50-year-old male with a history of sciatica presents with acute onset of back pain rating down his right leg. Patient was started on steroids as well as narcotics. Overall patient did feel better. Patient's activity has increased from the - for the patient is able to get up and stand up. Still does have pain but the pain is doing much better. Patient will be discharged with a prednisone taper as well as 3 days of oxycodone. Patient is comfortable returning home. Patient advised to avoid any kind of heavy lifting until symptoms are resolved. Patient advised also to return if he has have any kind as worsening pain or any issues with bowel or bladder incontinence. Physical Exam Narrative Awake alert. Was up at the side of the bed instructed by therapy to stand up from sitting on the bed several times. Patient little winded afterwards but was not in any respiratory distress. Const alert Neuro Sensorium / Orientation: awake and alert Weight / BMI Weight Weight: 224.4 kg Body Mass Index (BMI) 67.1 ABG / Lab / Microbiology Data Result Diagrams: 05/14/21 06:24 05/14/21 06:24 D/C Instructions Discharge Diet: No restrictions Call your doctor if you observe: - (worsening back pain. acute onset of bowel or bladder incontinence. ) Meaningful Use Info Meaningful Use Diagnoses (Choose all that apply): None applicable Discharge Plan Admission Admit Date/Time: 05/13/21 17:11 Primary Reason for Your Visit: back pain Attending Provider: Aniceto Chappell Primary Care Provider: Guicho Floyd Discharge Orders/Prescriptions Prescriptions: New gabapentin 300 mg Capsule 300 mg PO TIDCM Qty: 30 RF: 0 oxycodone 10 mg tablet 10 mg PO Q6H PRN (Reason: pain (scale score 7-10)) 3 Days Qty: 12 RF: 0 prednisone 10 mg tablet 10 mg PO DAILY Qty: 42 RF: 0 acetaminophen 500 mg capsule 1,000 mg PO Q8H PRN PRN (Reason: pain) Qty: 1 RF: 0 Continued metolazone 5 mg tablet 5 mg PO PRN PRN (Reason: edema) RF: 0 furosemide 40 mg tablet 40 mg PO DAILY Qty: 90 RF: 3 lisinopril 40 mg tablet 40 mg PO DAILY Qty: 90 RF: 3 flecainide 100 mg tablet 100 mg PO Q12H Qty: 180 RF: 3 potassium chloride 10 mEq tablet extended release 10 meq PO DAILY Qty: 90 RF: 3 warfarin 10 mg tablet 10 mg PO DAILY Qty: 90 RF: 3 diltiazem HCl 240 mg capsule,extended release 24 hr 240 mg PO DAILY PRN PRN (Reason: Anxiety) RF: 0 diazepam 2 mg tablet 2 mg PO DAILY PRN (Reason: Anxiety) RF: 0 Discontinued prednisone 10 mg Tablets,Dose Pack See Taper mg PO DAILY RF: 0 Referrals / Follow Up: Guicho Floyd MD [Primary Care Provider] - Within 2 Weeks Disposition Disposition (needs filled in before D/C Order can be placed): Home, Self Care Charges/Coding Visit Charges Inpatient E&M: 82981 Disch Hosp
--- NOTE | 2021-05-15 10:30 | CASEMGMT ---
GAIL ESPINOZA Face to Face with patient for initial transition planning/care coordination assessment. GAIL ESPINOZA introduced self and role at [facility]. Patient lying in bed, alert and oriented. Patient willing to participate in assessment and is able to answer all questions appropriately. Care providers, pharmacy, and demographics verified. Patient wishes to discharge home, denies need for home health at this time. Patient states he has no further needs or concerns at this time. CM to follow for discharge planning needs that may arise. PCP: [place] Specialists: None [place]acy: [facility] [place] [facility] [place]: [place] Living Will/HPOA: yes, Catherine Medina LNOK: , daughter, son Living Arrangements: Patient lives with and daughter in a 3 story home with bed and bath on first floor. Patient states he is independent at home. Transportation: Driving service, buggy DME/HHC: Patient states he has raised toilet, grab bars, walker, cpap at home. Denies previous HHC. RN OLGA provided list of [facility] DME warehouses and information regarding [employer]. Disposition Plan: Patient to discharge home with family support and follow-up plans in place. Melida NAJERA, RN, CM
== END 2021-05-15 13:09 | disposition home or self-care (01) | DRG 552 ==
LOC: ED 15:24 → MS2 17:48
PROVIDERS: Admitting Provider Internal Medicine; Emergency Provider Emergency Medicine; PCP Family Medicine
DX: M54.41 Lumbago with sciatica, right side (principal); Z68.44 Body mass index [BMI] 60.0-69.9, adult; E66.01 Morbid (severe) obesity due to excess calories; R53.81 Other malaise; I48.0 Paroxysmal atrial fibrillation; I10 Essential (primary) hypertension; Z87.01 Personal history of pneumonia (recurrent); Z87.19 Personal history of other diseases of the digestive system; Z79.01 Long term (current) use of anticoagulants; Z79.899 Other long term (current) drug therapy
CPT/HCPCS: 36415; 72020; 80048; 80053; 85025; 85610; 97162; 97165; 97530; 99285; A4216; J2405

== ENCOUNTER 2021-09-04 11:02 | Outpatient (CLI) | payer OTHER, SELFPAY ==
[2021-09-04 12:12] LABS: Absolute Lymphocyte Count 1.67 X10^3/uL (0.83-4.51); Absolute Neutrophil Count 6.9 X10^3/uL (2.0-7.7); Basophil# 0.04 X10^3/uL; Basophil% 0.4 % (0-1); Eosinophil# 0.14 X10^3/uL; Eosinophils% 1.5 % (0-5); Hematocrit 41.7 % (40-54); Hemoglobin 13.2 g/dL (13.0-16.5); Lymphocyte # 1.67 X10^3/ul (0.83-4.51); Lymphocyte % 17.8 % (19-41); Mean Corp Hgb Conc 31.7 g/dL (32-36); Mean Corpuscular Hgb 26.2 pg (27.0-32.0); Mean Corpuscular Volume 82.7 fL (80-94); Mean Platelet Vol. 10.2 fl (6.2-12.0); Monocyte# 0.57 X10^3/uL; Monocyte% 6.1 % (0-10); NRBC Flagged by Analyzer 0 % (0-5); Neutrophil # 6.89 X10^3/uL (2.7-7.7); Neutrophil % 73.7 % (47-70); Platelet Count 266 K/mm3 (150-450); RBC Distribution Width CV 14.5 % (11.6-14.6); RBC Distribution Width SD 43.4 fl (35.1-43.9); Red Blood Count 5.04 M/mm3 (4.6-6.2); White Blood Count 9.4 K/mm3 (4.4-11.0)
[2021-09-04 12:23] LABS: International Normalized Ratio 2.6; Prothrombin Time (Protime)PT. 26.7 SECONDS (11.7-14.9)
[2021-09-04 12:51] LABS: Anion Gap 6 (5-15); BUN 21 mg/dL (7-18); Calcium,Total 8.8 mg/dL (8.5-10.1); Chloride 102 mmol/L (98-107); EST Glomerular Filtration Rate 84 mL/min (>60); Est Glom Filt Rate - Afr Amer 101 mL/min (>60); Glucose 119 mg/dL (74-106); Potassium 3.1 mmol/L (3.5-5.1); Sodium Level 141 mmol/L (136-145)
[2021-09-04 12:52] LABS: BNP,B-Type NATRIURETIC PEPTIDE 59.9 pg/mL (0-100)
== END 2021-09-04 23:59 | disposition short-term general hospital (02) ==
LOC: LAB 11:03
PROVIDERS: PCP Family Medicine; Referring Provider Physician Assistant Medical; Visit Provider Physician Assistant Medical
DX: I10 Essential (primary) hypertension (principal); R06.00 Dyspnea, unspecified; Z79.01 Long term (current) use of anticoagulants
CPT/HCPCS: 36415; 80048; 83880; 85025; 85610

== ENCOUNTER 2021-10-24 10:33 | Day surgery (SDC) | payer SELFPAY, OTHER ==
[2021-10-23 09:34] VITALS: BMI 67.5
[2021-10-24 10:45] LABS: INR Fingerstick 2.4; Prothrombin Time Fingerstick 27.5 SEC (11.9-14.4)
[2021-10-24 11:29] LABS: Potassium 3.2 mmol/L (3.5-5.1)
--- NOTE | 2021-10-24 13:16 | PCM.OP.BLANK ---
Problems Associated Problem List Diagnoses (1) Paroxysmal atrial fibrillation: Operative Report Date of Procedure: 10/24/21 DC patient. 50-year-old man with a history of paroxysmal atrial fibrillation. Patient has been on therapeutic anticoagulation for at least 4 weeks. Patient was seen by Dr. Cabrera of the critical care division. Informed consent was obtained. Anterior-posterior pads were applied. The patient was then given 140 mg of intravenous propofol and then increased to 200 mg of intravenous propofol. The patient received 3 consecutive shocks of 300 J, 360 J, and 360 J of biphasic cardioversion energy with a final 1 successfully converting him into sinus rhythm. Postoperative EKG confirmed the above. Conclusion: Successful DC cardioversion from atrial fibrillation to sinus rhythm Continue current medications Increase flecainide to 150 mg twice a day
--- NOTE | 2021-10-24 13:34 | PRO.PCM_ITS ---
Assessment & Plan Assessment/Plan (1) Paroxysmal atrial fibrillation: (2) KAYLIN (obstructive sleep apnea): (3) Morbid obesity: Procedure Report Date of Procedure: 10/24/21 CONSCIOUS SEDATION REPORT BRIEF HISTORY OF PRESENT ILLNESS: The patient is a 50-year-old male who presented to [facility] for an elective outpatient cardioversion due to underlying atrial fibrillation. The patient reports no PO intake since midnight, but is currently therapeutic on anticoagulation. The patient does have a history of obstructive sleep apnea and is compliant with therapy. The patient reports no history of smoking or COPD. The patient denies any recent constitutional symptoms such as fevers, chills, nausea or vomiting. The patient denies previous applicable anesthetic complications. PHYSICAL EXAMINATION: VITAL SIGNS: Reviewed and were acceptable. GENERAL: The patient is a male, in no apparent distress, speaking in full sentences. HEENT: Normocephalic, atraumatic. Mucous membranes are moist and pink. Good mouth opening noted. Trachea is midline. Good neck mobility. MP IV CHEST: S1, S2 irregularly irregular. No murmurs, rubs or gallops were noted. LUNGS: Clear to auscultation bilaterally without appreciable wheezes, rales or rhonchi. ABDOMEN: Soft, nontender, nondistended. Positive bowel sounds. EXTREMITIES: There is no clubbing, cyanosis or edema. ASA Class: II DESCRIPTION OF PROCEDURE: After confirmation of informed consent, the patient's anesthesia plan was reviewed in detail. Propofol was chosen. Risks and benefits were reviewed and the patient agreed to proceed. At 12:57 PM, the patient was given 40 mg of propofol. The patient required a total of 200 mg of propofol throughout the procedure to achieve appropriate sedation. The patient achieved an appropriate level of sedation and received 3 attempt s synchronized cardioversion, at 300 J, 360 J and [address] Riggs at the bedside. This was successful in achieving normal sinus rhythm. The patient was monitored until 1:20 PM, at which time the patient reached their baseline mental status and function. The patient tolerated the procedure well. COMPLICATIONS: None ESTIMATED BLOOD LOSS: None RECOMMENDATIONS: Okay to recover in usual fashion. Procedures Pulmonary 9xxxx: [id number] Con Sedation
== END 2021-10-24 23:59 | disposition home or self-care (01) ==
LOC: CLSP 10:35
PROVIDERS: PCP Family Medicine; Referring Provider Internal Medicine Cardiovascular Disease; Visit Provider Internal Medicine Cardiovascular Disease
DX: I48.0 Paroxysmal atrial fibrillation (principal); J44.9 Chronic obstructive pulmonary disease, unspecified; E66.01 Morbid (severe) obesity due to excess calories; Z68.44 Body mass index [BMI] 60.0-69.9, adult; G47.33 Obstructive sleep apnea (adult) (pediatric); F41.9 Anxiety disorder, unspecified; Z87.19 Personal history of other diseases of the digestive system; I10 Essential (primary) hypertension; Z87.01 Personal history of pneumonia (recurrent); H54.7 Unspecified visual loss
CPT/HCPCS: 36416; 84132; 85610; 92960; 93005; J7040

== ENCOUNTER 2021-10-30 19:54 | Emergency (ER) | payer OTHER, SELFPAY ==
[2021-10-30 19:55] VITALS: BP 162/81; PULSE 92; RESP 15; TEMP 36.4; O2SAT 96; BMI 69.7
--- NOTE | 2021-10-30 20:25 | EKG12_ITS ---
Test Reason : LOWER EXT Blood Pressure : / mmHG Vent. Rate : 085 BPM Atrial Rate : 085 BPM P-R Int : 256 ms QRS Dur : 114 ms QT Int : 404 ms P-R-T Axes : 069 009 029 degrees QTc Int : 480 ms Sinus rhythm with 1st degree A-V block Low voltage QRS Prolonged QT Abnormal ECG Confirmed by RAVI WEIR, SANG ([id number]), staff editor DEYVI SANTILLAN ([id number]) on 10/31/2021 9:59:32 AM Referred By: TL Confirmed By:SANG RODRIGUES MD
[2021-10-30] MEDS: MethylPREDNISolone 125 MG/2 ML Vial 60 MG IV (20:35)
--- NOTE | 2021-10-30 20:43 | RAD_ITS ---
STUDY: XR Ankle Min 3 Views REASON FOR EXAM: Male, 50 years old. ANKLE PAIN TECHNIQUE: XR Ankle Min 3 Views RIGHT COMPARISON: None. FINDINGS: Normal visualized distal tibia and fibula. Normal medial and lateral malleoli. Normal tibiotalar articulation and ankle mortise. The visualized subtalar, talonavicular, calcaneocuboid and tarsal articulations are normal. There is a plantar calcaneal spur. There is soft tissue swelling around the ankle. RAD/Ankle min 3 Views IMPRESSION: There is soft tissue swelling. Electronically Signed: Andrew Smyth MD at 20:51 EST ,
[2021-10-30 20:53] LABS: Absolute Lymphocyte Count 1.36 X10^3/uL (0.83-4.51); Absolute Neutrophil Count 10.2 X10^3/uL (2.0-7.7); Basophil# 0.04 X10^3/uL; Basophil% 0.3 % (0-1); Eosinophil# 0.16 X10^3/uL; Eosinophils% 1.3 % (0-5); Hematocrit 41.7 % (40-54); Hemoglobin 13.8 g/dL (13.0-16.5); Lymphocyte # 1.36 X10^3/ul (0.83-4.51); Lymphocyte % 10.7 % (19-41); Mean Corp Hgb Conc 33.1 g/dL (32-36); Mean Corpuscular Hgb 26.8 pg (27.0-32.0); Mean Corpuscular Volume 81.1 fL (80-94); Monocyte# 0.91 X10^3/uL; Monocyte% 7.2 % (0-10); NRBC Flagged by Analyzer 0 % (0-5); Neutrophil % 80.1 % (47-70); Platelet Count 285 K/mm3 (150-450); RBC Distribution Width CV 14.5 % (11.6-14.6); RBC Distribution Width SD 42.4 fl (35.1-43.9); Red Blood Count 5.14 M/mm3 (4.6-6.2); White Blood Count 12.7 K/mm3 (4.4-11.0)
--- NOTE | 2021-10-30 21:03 | EDS_ITS ---
HPI History of Present Illness Chief Complaint: Lower Extremity Injury Informant: patient Narrative Narrative: Nontraumatic right ankle pain worse with past 2 days. Symptoms worse with movement. Denies fevers. Denies redness or warmth. Denies history of gout or pseudogout. He is on warfarin for history of atrial fibrillation. He is followed by Dr. Danielson. He states he had a direct-current cardioversion a week ago. He states he found to have potassium that was low he is currently on potassium replacement. He is concerned with his potassium being low however denies any myalgias. No calf pain. Denies history of diabetes. Prior similar symptoms: No PFSH PFSH Medical History Acute lumbar radiculopathy Anxiety Atrial fibrillation with RVR (08/11/19) Blindness of both eyes Colitis Diverticulitis Essential hypertension GI bleed [place] fever skilled nursing current use of anticoagulant Morbid obesity Paroxysmal atrial fibrillation Perforated diverticulum Perforation of sigmoid colon due to diverticulitis Persistent atrial fibrillation Pneumonia Super-super obese Home Medications lisinopril 40 mg tablet 40 mg PO DAILY #90 tab 07/18/20 [Rx Last Taken 10/24/21] flecainide 100 mg tablet 100 mg PO Q12H #180 tab 03/02/21 [Rx Last Taken 10/24/21] diazepam 2 mg PO DAILY PRN 05/13/21 [History Last Taken Unknown] acetaminophen 1,000 mg PO Q8H PRN PRN #1 cap 05/15/21 [Rx Last Taken Unknown] furosemide 40 mg tablet 40 mg PO DAILY #90 tab 09/04/21 [Rx Last Taken Unknown] metolazone 5 mg tablet 5 mg PO .COMPLEX #14 tab 09/05/21 [Rx Last Taken Unknown] potassium chloride 10 mEq tablet,extended release 20 meq PO DAILY #180 tab 09/05/21 [Rx Last Taken 10/24/21] warfarin 10 mg tablet 10 mg PO .George, Suresh, [place] #90 tab 09/05/21 [Rx Last Taken Unknown] warfarin 3 mg tablet 3 mg PO .COMPLEX 09/05/21 [History Last Taken Unknown] warfarin 5 mg tablet 5 mg PO .COMPLEX tab 09/05/21 [History Last Taken Unknown] diltiazem HCl 240 mg capsule,24 hr,extended release 240 mg PO DAILY #90 cap 09/14/21 [Rx Last Taken 10/24/21] hydrocodone-acetaminophen 1 tab PO Q6H PRN 3 Days #12 tab 10/30/21 [Rx Last Taken Unknown] prednisone 60 mg PO DAILY #12 tab 10/30/21 [Rx Last Taken Unknown] Allergy/AdvReac Type Severity Reaction Status Date / Time cephalexin [From Keflex] Allergy Rash Verified 09/04/21 10:14 Family History Father Atrial fibrillation Sister Atrial fibrillation Sister Atrial fibrillation Surgical History History of cardioversion (01/20/20) History of tonsillectomy Social History Smoking Status: Never smoker ROS ROS ED Constitutional Constitutional ED: Denies chills, fever(s) or sweats Eyes Eyes: Denies change in vision ENT ENT ED: Denies dysphagia or sore throat Cardiovascular Cardiovascular: Denies chest pain, leg edema, palpitations or racing heartbeat Respiratory/Chest Respiratory/Chest: Denies cough, dyspnea or dyspnea on exertion Gastrointestinal Gastrointestinal: Denies abdominal pain, diarrhea, nausea or vomiting Genitourinary Genitourinary ED: Denies dysuria, hematuria or urinary frequency Musculoskeletal Musculoskeletal: Reports arthralgias; Denies back pain, extremity pain or neck pain Integumentary Denies rash or wounds Neurologic Neurologic: Denies headache(s), paresthesias or weakness EXAM Physical Exam Const Vital Signs: 10/30/21 19:55 10/30/21 22:21 Temperature 97.6 F L Temperature Source Temporal Pulse Rate 92 74 Respiratory Rate 15 16 Blood Pressure 162/81 H 156/82 H Blood Pressure Mean 108 106 Pulse Ox 96 93 Oxygen Delivery Method Room Air Room Air Positive well nourished and well developed General Appearance ED: well developed and NAD HEENT Reports moist mucous membranes normocephalic and atraumatic Eyes PERRL, EOMs intact bilaterally and conjunctivae normal General Eye ED: Yes normal appearance of both eyes Neck no lymphadenopathy and supple General: Negative for tenderness Chest Wall Chest: Negative for tenderness Resp normal respiratory effort and normal air movement Effort and Inspection: symmetric chest movement; Negative for respiratory distress Cardio regular rate, regular rhythm and no murmurs Peripheral Pulses: pulses 2+ throughout GI normal to inspection, nondistended, normoactive bowel sounds and non-tender Palpation: Negative for guarding or rebound tenderness present Back/Spine no CVA tenderness and no thoracic nor lumbar tenderness Extremity Extremity Narrative: Right lower extremity: Ankle mild swelling, no erythema is cool to palpation. Did have pain with movement. No calf tenderness. Skin intact. Neuro vas intact distally. General Extremety ED: Negative for edema or tenderness General Extremity: Negative for edema Neuro oriented x3 and no sensory deficits noted Sensorium / Orientation: awake and alert Skin no rashes or lesions noted and no wounds MDM MDM MDM Narrative Medical decision making narrative: Patient nontoxic. Mild swelling ankle there is no redness there is no warmth. He is afebrile. Lower suspicion for septic joint. He is on warfarin therefore no NSAIDs. Denies being a diabetic, started on steroids of Solu-Medrol through the IV. Labs were checked with concerns for potassium below this returned at 3.6. Glucose at 116. White count is 12.7. X- ray right ankle reviewed by myself and read by radiology mild soft tissue swelling. On reevaluation there was some improvement of his ankle however pain is still there, he has tolerated hydrocodone in the past. Jhonny wrap hydrocodone started. Continue on prednisone short course of hydrocodone with follow-up with his PCP. He did request EKG due to states needing one tomorrow to return along with know his INR levels. This was sinus rhythm. INR returned at 2.0. Patient does have a walker to use for support. Prescriptions filled and discharged with the patient. Lab Data Attestation: I reviewed the patient's lab results. Labs: Laboratory Results - last 24 hr 10/30/21 10/30/21 10/30/21 20:32 20:32 20:32 WBC 12.7 H RBC 5.14 Hgb 13.8 Hct 41.7 MCV 81.1 MCH 26.8 L MCHC 33.1 RDW Std Deviation 42.4 RDW Coeff of Tg 14.5 Plt Count 285 MPV 10.0 Immature Gran % (Auto) 0.400 Neut % (Auto) 80.1 H Lymph % (Auto) 10.7 L Cooper % (Auto) 7.2 Eos % (Auto) 1.3 Baso % (Auto) 0.3 Absolute Neuts (auto) 10.2 H Absolute Lymphs (auto) 1.36 Nucleated RBC % 0 PT Cancelled INR Cancelled Sodium 138 Potassium 3.6 Chloride 103 Carbon Dioxide 31.0 Anion Gap 4 L BUN 17 Creatinine 1.07 Estim Creat Clear Calc 86.99 Est GFR (MDRD) Af Amer 93 Est GFR (MDRD) Non-Af 77 BUN/Creatinine Ratio 15.9 Glucose 116 H Calcium 8.9 10/30/21 10/30/21 21:00 21:55 WBC RBC Hgb Hct MCV MCH MCHC RDW Std Deviation RDW Coeff of Tg Plt Count MPV Immature Gran % (Auto) Neut % (Auto) Lymph % (Auto) Cooper % (Auto) Eos % (Auto) Baso % (Auto) Absolute Neuts (auto) Absolute Lymphs (auto) Nucleated RBC % PT Cancelled 21.9 H INR Cancelled 2.0 Sodium Potassium Chloride Carbon Dioxide Anion Gap BUN Creatinine Estim Creat Clear Calc Est GFR (MDRD) Af Amer Est GFR (MDRD) Non-Af BUN/Creatinine Ratio Glucose Calcium Radiography Diagnostic Testing: Clinical Impression(s) from Imaging Studies Ankle X-Ray 10/30/21 20:43 IMPRESSION: There is soft tissue swelling. Electronically Signed: Andrew Smyth MD at 20:51 EST Reading Location ID and State: [facility] / [place] , Service support , EKG Initial EKG: Attestation: I personally reviewed and interpreted this EKG as follows: Comments: Sinus rate of 85, first-degree AV block, no ST or T wave changes. Discharge Plan Triage Chief Complaint: Lower Extremity Injury ED Provider: Reese Oneal Dx/Rx/DC Orders Clinical Impression: Gouty arthritis of right ankle, Ankle pain, right Instructions: Treating Gout Attacks Prescriptions: New hydrocodone-acetaminophen 5-325 mg tablet 1 tab PO Q6H PRN (Reason: pain) 3 Days Qty: 12 RF: 0 prednisone 20 MG tablet 60 mg PO DAILY Qty: 12 RF: 0 No Action lisinopril 40 mg tablet 40 mg PO DAILY Qty: 90 RF: 3 flecainide 100 mg tablet 100 mg PO Q12H Qty: 180 RF: 3 diazepam 2 mg tablet 2 mg PO DAILY PRN (Reason: Anxiety) RF: 0 acetaminophen 500 mg capsule 1,000 mg PO Q8H PRN PRN (Reason: pain) Qty: 1 RF: 0 furosemide 40 mg tablet 40 mg PO DAILY Qty: 90 RF: 3 metolazone 5 mg tablet 5 mg PO .COMPLEX Qty: 14 RF: 4 potassium chloride 10 mEq tablet extended release 20 meq PO DAILY Qty: 180 RF: 3 warfarin 10 mg tablet 10 mg PO .Tues, Thurs, Sun Qty: 90 RF: 3 warfarin 3 mg tablet 3 mg PO .COMPLEX RF: 0 warfarin 5 mg tablet 5 mg PO .COMPLEX RF: 0 diltiazem HCl 240 mg capsule,extended release 24 hr 240 mg PO DAILY Qty: 90 RF: 4 Primary Care Provider: Guicho Flody Referrals: Guicho Floyd MD [Primary Care Provider] - 3-5 Days if not improving Activity Restrictions/Additional Instructions: Take prednisone as prescribed, hydrocodone as needed. Your INR today is 2.0. Y our EKG is sinus rhythm today. If any worsening symptoms or develop fevers return for reevaluation. Otherwise follow-up with your PCP. Disposition Disposition: Home, Self Care Discharge Date/Time: 10/30/21 23:02
[2021-10-30 21:05] LABS: Anion Gap 4 (5-15); BUN 17 mg/dL (7-18); BUN/Creat Ratio 15.9 RATIO (10-20); Calcium,Total 8.9 mg/dL (8.5-10.1); Chloride 103 mmol/L (98-107); Creatinine, Serum 1.07 mg/dL (0.70-1.30); EST Glomerular Filtration Rate 77 mL/min (>60); Est Glom Filt Rate - Afr Amer 93 mL/min (>60); Estimated Creatinine Clearance 86.99 ml/min; Glucose 116 mg/dL (74-106); Potassium 3.6 mmol/L (3.5-5.1); Sodium Level 138 mmol/L (136-145)
[2021-10-30] MEDS: HYDROcodone Bitartrate/Apap 5/325 Tablet PO (22:16)
[2021-10-30 22:21] VITALS: BP 156/82; PULSE 74; RESP 16; O2SAT 93
[2021-10-30 22:42] LABS: Prothrombin Time (Protime)PT. 21.9 SECONDS (11.7-14.9)
== END 2021-10-30 23:02 | disposition home or self-care (01) ==
PROVIDERS: Emergency Provider Emergency Medicine; PCP Family Medicine; Visit Provider Emergency Medicine
DX: M10.071 Idiopathic gout, right ankle and foot (principal); I48.0 Paroxysmal atrial fibrillation; E66.01 Morbid (severe) obesity due to excess calories; Z68.44 Body mass index [BMI] 60.0-69.9, adult; I10 Essential (primary) hypertension; F41.9 Anxiety disorder, unspecified; Z87.19 Personal history of other diseases of the digestive system; Z87.01 Personal history of pneumonia (recurrent); Z79.01 Long term (current) use of anticoagulants; Z79.899 Other long term (current) drug therapy; I44.0 Atrioventricular block, first degree
CPT/HCPCS: 36415; 73610; 80048; 85025; 85610; 93005; 96374; 99285; A4216

== ENCOUNTER 2022-11-14 11:43 | Emergency (ER) | payer OTHER, SELFPAY ==
[2022-11-14] VITALS (8 sets, daily range): BP systolic 106–163; BP diastolic 61–84; PULSE 60–98; RESP 14–26; TEMP 36.6–37.2; O2SAT 90–93; BMI 68.3
[2022-11-14] MEDS: Albuterol 2.5 MG/3 ML VIAL.NEB. INHALATION (12:49)
[2022-11-14] MEDS: Ipratropium/Albuterol Sulfate 3 ML AMPUL.NEB INHALATION (12:49)
[2022-11-14] MEDS: MethylPREDNISolone 125 MG/2 ML Vial IV (13:14)
[2022-11-14 13:17] LABS: Absolute Lymphocyte Count 2.28 X10^3/uL (0.83-4.51); Absolute Neutrophil Count 6.4 X10^3/uL (2.0-7.7); Basophil# 0.05 X10^3/uL; Basophil% 0.5 % (0-1); Eosinophil# 0.25 X10^3/uL; Eosinophils% 2.6 % (0-5); Hematocrit 42.4 % (40-54); Hemoglobin 13.2 g/dL (13.0-16.5); Lymphocyte # 2.28 X10^3/ul (0.83-4.51); Lymphocyte % 23.4 % (19-41); Mean Corp Hgb Conc 31.1 g/dL (32-36); Mean Corpuscular Hgb 26.6 pg (27.0-32.0); Mean Corpuscular Volume 85.5 fL (80-94); Mean Platelet Vol. 9.3 fl (6.2-12.0); Monocyte# 0.73 X10^3/uL; Monocyte% 7.5 % (0-10); NRBC Flagged by Analyzer 0 % (0-5); Neutrophil # 6.38 X10^3/uL (2.7-7.7); Neutrophil % 65.3 % (47-70); Platelet Count 331 K/mm3 (150-450); RBC Distribution Width CV 15.1 % (11.6-14.6); RBC Distribution Width SD 46.2 fl (35.1-43.9); Red Blood Count 4.96 M/mm3 (4.6-6.2); White Blood Count 9.8 K/mm3 (4.4-11.0)
[2022-11-14 13:24] LABS: International Normalized Ratio 2.4; Prothrombin Time (Protime)PT. 25.6 SECONDS (11.7-14.9)
--- NOTE | 2022-11-14 13:30 | RAD_ITS ---
STUDY: X-RAY - LEFT FOOT CLINICAL: Male, 51 years old. Pain. No history of trauma. TECHNIQUE: 3 view(s) of the foot. COMPARISON: None. FINDINGS: There is an enthesophyte involving the posterior superior calcaneus at the site of insertion of the Achilles tendon. Plantar spur. Normal visualized subtalar, talonavicular, calcaneocuboid, tarsal and tarsometatarsal articulations. Normal metatarsi. There is degenerative arthrosis of the metatarsophalangeal joint of the hallux . Normal tibial and fibular sesamoid bones. Normal interphalangeal joint of the great toe. Normal phalanges of the great toe. Flexion deformity of the second third fourth and fifth metatarsal phalangeal joints. Normal interphalangeal joints and phalanges of the lesser toes. Diffuse soft tissue swelling. RAD/Foot min 3 Views IMPRESSION: Diffuse soft tissue swelling. Flexion deformity at the second third fourth and fifth metatarsophalangeal joints. Electronically Signed: Ravi Cazares MD at 14:29 EDT ,
--- NOTE | 2022-11-14 13:30 | RAD_ITS ---
STUDY: X-RAY - LEFT ANKLE REASON FOR EXAM: Male, 51 years old. Ankle pain. TECHNIQUE: 3 view(s) of the ankle. COMPARISON: None. FINDINGS: Normal visualized distal tibia and fibula. Normal medial and lateral malleoli. Normal tibiotalar articulation and ankle mortise. Calcaneal spurs. The visualized subtalar, talonavicular, calcaneocuboid and tarsal articulations are normal. Diffuse soft tissue swelling. RAD/Ankle min 3 Views IMPRESSION: Diffuse soft tissue swelling. Calcaneal spurs. Electronically Signed: Ravi Cazares MD at 14:24 EDT ,
--- NOTE | 2022-11-14 13:30 | RAD_ITS ---
STUDY: X-RAY CHEST REASON FOR EXAM: Male, 51 years old. Cough and shortness of breath. TECHNIQUE: Single AP portable view of the chest. COMPARISON: None. FINDINGS: EKG electrodes are seen. Vascular congestion and mild degree of CHF. There is no demonstrated pleural abnormality. There is borderline cardiomegaly. Normal mediastinum and willard. Normal visualized pulmonary arteries. Normal visualized aortic arch and descending thoracic aorta. There are degenerative changes of the visualized thoracic spine. Normal visualized ribs, clavicles, and shoulders. There is no demonstrated abnormality of the visualized soft tissue structures of the upper abdomen. RAD/Chest 1 View (Portable) IMPRESSION: Vascular congestion and CHF. Electronically Signed: Ravi Cazares MD at 14:25 EDT ,
[2022-11-14 13:33] LABS: Anion Gap 6 (5-15); BUN 16 mg/dL (7-18); BUN/Creat Ratio 15.8 RATIO (10-20); Calcium,Total 8.7 mg/dL (8.5-10.1); Chloride 104 mmol/L (98-107); Creatinine, Serum 1.01 mg/dL (0.70-1.30); EST Glomerular Filtration Rate 82 mL/min (>60); Est Glom Filt Rate - Afr Amer 99 mL/min (>60); Estimated Creatinine Clearance 91.12 ml/min; Glucose 110 mg/dL (74-106); Potassium 3.8 mmol/L (3.5-5.1); Sodium Level 140 mmol/L (136-145); Troponin-I HS 12 pg/mL (3.0-78.0)
[2022-11-14 13:41] LABS: BNP,B-Type NATRIURETIC PEPTIDE 68.8 pg/mL (0-100)
--- NOTE | 2022-11-14 16:04 | EDS_ITS ---
HPI History of Present Illness Chief Complaint: Shortness of Breath Narrative Narrative: 51-year-old male shortness of breath for 2 weeks. He states he just got over a cold of some sort. He still has a cough. He states he is chronically short of breath and is about baseline. Patient feels like he might be wheezing. He does not have a history of asthma or COPD. He has not a fever recently but did have a fever when he was ill a couple weeks ago. Patient has a history of A-fib and is on Coumadin. He denies black or bloody stools. Patient also complaining of left foot pain. He has a history of gout. He states his left foot hurts from the left great toe up into the dorsum of the foot. He notes some edema. 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 Morbid obesity Perforated diverticulum Perforation of sigmoid colon due to diverticulitis Persistent atrial fibrillation Pneumonia Super-super obese Home Medications lisinopril 40 mg tablet 40 mg PO DAILY #90 tabs 07/18/20 [Rx Last Taken 10/24/21] diazepam 2 mg tablet 2 mg PO DAILY PRN Anxiety 05/13/21 [History Last Taken Unknown] acetaminophen 500 mg capsule 1,000 mg PO Q8H PRN PRN pain #1 cap 05/15/21 [Rx Last Taken Unknown] furosemide 40 mg tablet 40 mg PO DAILY hypertension #90 tabs 09/04/21 [Rx Last Taken Unknown] metolazone 5 mg tablet 5 mg PO .COMPLEX edema #14 tabs 09/05/21 [Rx Last Taken Unknown] warfarin 10 mg tablet 10 mg PO .Tues, Thurs, Sun takes 8 mg all other days #90 tabs 09/05/21 [Rx Last Taken Unknown] warfarin 3 mg tablet 3 mg PO .COMPLEX 09/05/21 [History Last Taken Unknown] warfarin 5 mg tablet 5 mg PO .COMPLEX 09/05/21 [History Last Taken Unknown] diltiazem HCl 240 mg capsule,24 hr,extended release 240 mg PO DAILY Anxiety #90 caps 09/14/21 [Rx Last Taken 10/24/21] hydrocodone-acetaminophen 5-325mg 5mg-325mg 1 tab PO Q6H PRN pain 3 days #12 tabs 10/30/21 [Rx Last Taken Unknown] flecainide 150 mg tablet 150 mg PO Q12H #180 tabs 11/27/21 [Rx Last Taken Unknown] potassium chloride 20 mEq tablet,extended release 20 meq PO BID #180 tabs 03/08/22 [Rx Last Taken Unknown] colchicine 0.6 mg capsule 0.6 mg PO DAILY #14 caps 11/14/22 [Rx Last Taken Unknown] Allergy/AdvReac Type Severity Reaction Status Date / Time cephalexin [From Keflex] Allergy Rash Verified 11/14/22 11:45 Family History Father Atrial fibrillation Sister Atrial fibrillation Sister Atrial fibrillation Surgical History History of cardioversion (10/24/21) History of tonsillectomy Social History Smoking Status: Never smoker ROS ROS ED Constitutional Constitutional ED: Denies chills or fever(s) Eyes Eyes: Denies change in vision or diplopia ENT ENT ED: Denies rhinorrhea or sore throat Cardiovascular Cardiovascular: Denies chest pain or palpitations Respiratory/Chest Respiratory/Chest: Reports cough, dyspnea and dyspnea on exertion Gastrointestinal Gastrointestinal: Denies abdominal pain, nausea or vomiting Genitourinary Genitourinary ED: Denies dysuria or hematuria Musculoskeletal Musculoskeletal: Denies arthralgias or back pain Integumentary Denies abscess Neurologic Neurologic: Denies headache(s) or paresthesias Psychiatric Psychiatric: Denies anxiety or depression EXAM Physical Exam Const Vital Signs: 11/14/22 11:45 11/14/22 12:08 11/14/22 12:45 Temperature 99 F 98.4 F Temperature Source Temporal Oral Pulse Rate 95 60 94 Respiratory Rate 14 26 H 26 H Respiratory Effort Respiratory Depth Respiratory Pattern Blood Pressure 141/76 H 125/61 H Blood Pressure Mean 97 82 Pulse Ox 91 92 90 Oxygen Delivery Method Room Air Room Air Room Air 11/14/22 12:45 11/14/22 13:00 11/14/22 12:51 Temperature 98.5 F Temperature Source Oral Pulse Rate 77 92 Respiratory Rate 24 H 20 H Respiratory Effort Normal Labored Respiratory Depth Normal Respiratory Pattern Normal Blood Pressure 153/72 H Blood Pressure Mean 99 Pulse Ox 92 Oxygen Delivery Method Room Air Room Air 11/14/22 14:05 11/14/22 16:29 Temperature 98.2 F 98 F Temperature Source Oral Oral Pulse Rate 98 69 Respiratory Rate 24 H 24 H Respiratory Effort Respiratory Depth Respiratory Pattern Blood Pressure 106/84 H 125/71 H Blood Pressure Mean 91 89 Pulse Ox 93 93 Oxygen Delivery Method Room Air Room Air Positive well nourished HEENT Reports moist mucous membranes atraumatic Eyes PERRL and EOMs intact bilaterally General Eye ED: Negative for pale conjunctiva Resp normal respiratory effort Auscultation: wheezes scattered wheezes Cardio regular rate and regular rhythm GI non-tender Neuro oriented x3 and CN's II-XII intact bilaterally Sensorium / Orientation: alert Motor Exam: strength 5/5 throughout Psych mental status grossly normal Attitude: No agitated Skin no wounds MDM MDM MDM Narrative Medical decision making narrative: 51-year-old male with shortness of breath for a couple of weeks. This could be from viral syndrome versus pneumonia. I will obtain a CBC to assess white blood cell count, hemoglobin, differential. Patient is on Coumadin so I will check an INR to make sure he is therapeutic. BMP to assess renal function, electrolytes, glucose, anion gap. BNP to assess for CHF. Troponin will also be added. Chest x-ray will be obtained as well as EKG due to the dyspnea on exertion. EKG Shows atrial fibrillation with controlled ventricular response at 90 bpm. Chest x-ray does appear to show vascular congestion on my interpretation. Radiology interprets this and agree. Patient's BNP is 68.8 however. CBC and BMP unremarkable. Patient was treated with breathing treatments and Solu-Medrol on arrival. I suspect his foot has gout I did obtain x-rays of the left foot and left ankle and on my interpretation is no acute fracture. Patient given there is some soft tissue swelling in this region. Patient's O2 sat is 91 to 93% on room air. I will have him ambulated. Patient maintained his sats at 92% while ambulating. He had one isolated pulse ox of 87 after sitting but this rebounded quickly. Patient states he does not want to stay in the hospital. His CBC and BMP are within normal limits. INR is therapeutic at 2.4 therefore I do not suspect PE. BNP is 68. Troponin 12. I discussed his case with Dr. Riggs who recommended close outpatient follow-up.. I did start him on colchicine. I believe he has gout in the left foot. Patient amenable to this plan. Return precautions discussed. Impression: 1. Dyspnea 2. Gout Lab Data Labs: Laboratory Results - last 24 hr 11/14/22 11/14/22 11/14/22 13:02 13:02 13:02 WBC 9.8 RBC 4.96 Hgb 13.2 Hct 42.4 MCV 85.5 MCH 26.6 L MCHC 31.1 L RDW Std Deviation 46.2 H RDW Coeff of Tg 15.1 H Plt Count 331 MPV 9.3 Immature Gran % (Auto) 0.700 Neut % (Auto) 65.3 Lymph % (Auto) 23.4 [place] % (Auto) 7.5 Eos % (Auto) 2.6 Baso % (Auto) 0.5 Absolute Neuts (auto) 6.4 Absolute Lymphs (auto) 2.28 Nucleated RBC % 0 PT 25.6 H INR 2.4 Sodium 140 Potassium 3.8 Chloride 104 Carbon Dioxide 30.0 Anion Gap 6 BUN 16 Creatinine 1.01 Estim Creat Clear Calc 91.12 Est GFR (MDRD) Af Amer 99 Est GFR (MDRD) Non-Af 82 BUN/Creatinine Ratio 15.8 Glucose 110 H Calcium 8.7 Troponin I High Sens 12 B-Natriuretic Peptide 11/14/22 13:02 WBC RBC Hgb Hct MCV MCH MCHC RDW Std Deviation RDW Coeff of Tg Plt Count MPV Immature Gran % (Auto) Neut % (Auto) Lymph % (Auto) [place] % (Auto) Eos % (Auto) Baso % (Auto) Absolute Neuts (auto) Absolute Lymphs (auto) Nucleated RBC % PT INR Sodium Potassium Chloride Carbon Dioxide Anion Gap BUN Creatinine Estim Creat Clear Calc Est GFR (MDRD) Af Amer Est GFR (MDRD) Non-Af BUN/Creatinine Ratio Glucose Calcium Troponin I High Sens B-Natriuretic Peptide 68.8 Radiography Diagnostic Testing: Clinical Impression(s) from Imaging Studies Ankle X-Ray 11/14/22 13:30 IMPRESSION: Diffuse soft tissue swelling. Calcaneal spurs. Electronically Signed: Ravi Cazares MD at 14:24 EDT , Chest X-Ray 11/14/22 13:30 IMPRESSION: Vascular congestion and CHF. Electronically Signed: Ravi Cazares MD at 14:25 EDT Reading Location ID and State: [facility] / [place] , Service support , Foot X-Ray 11/14/22 13:30 IMPRESSION: Diffuse soft tissue swelling. Flexion deformity at the second third fourth and fifth metatarsophalangeal joints. Electronically Signed: Ravi Cazares MD at 14:29 EDT Reading Location ID and State: [facility] / [place] , Service support , Discharge Plan Triage Chief Complaint: Shortness of Breath ED Provider: Garland Brink Dx/Rx/DC Orders Instructions: ED Dyspnea Prescriptions: New colchicine 0.6 mg capsule 0.6 mg PO DAILY Qty: 14 0RF No Action lisinopril 40 mg tablet 40 mg PO DAILY Qty: 90 3RF flecainide 150 mg tablet 150 mg PO Q12H Qty: 180 3RF diazepam 2 mg tablet 2 mg PO DAILY PRN (Reason: Anxiety) Label Comments: TAKE ONE TABLET BY MOUTH DAILY NEEDED acetaminophen 500 mg capsule 1,000 mg PO Q8H PRN PRN (Reason: pain) Qty: 1 0RF hydrocodone-acetaminophen 5-325 mg tablet 1 tab PO Q6H PRN (Reason: pain) 3 Days Qty: 12 0RF furosemide 40 mg tablet 40 mg PO DAILY Qty: 90 3RF metolazone 5 mg tablet 5 mg PO .COMPLEX Qty: 14 4RF Rx Instructions: 5 mg PO weekly; warfarin 10 mg tablet 10 mg PO ., , Sat Qty: 90 3RF Protocol: Dose Management Condition: Saturday Dose/Route: 10 mg Instruction: 1 x 10 mg tablet Condition: Saturday Dose/Route: 8 mg Instruction: 1 x 3 mg tablet, 1 x 5 mg tablet Condition: Saturday Dose/Route: 10 mg Instruction: 1 x 10 mg tablet Condition: Saturday Dose/Route: 8 mg Instruction: 1 x 3 mg tablet, 1 x 5 mg tablet Condition: Dose/Route: 10 mg Instruction: 1 x 10 mg tablet Condition: Saturday Dose/Route: 8 mg Instruction: 1 x 3 mg tablet, 1 x 5 mg tablet Condition: Saturday Dose/Route: 8 mg Instruction: 1 x 3 mg tablet, 1 x 5 mg tablet Protocol Text: Adjustment Start Date: Saturday10/23/21 INR Value: 2.2 INR Date: 10/23/21 Recheck Date: 11/06/21 warfarin 3 mg tablet 3 mg PO .COMPLEX Protocol: Dose Management Condition: Saturday Dose/Route: 10 mg Instruction: 1 x 10 mg tablet Condition: Saturday Dose/Route: 8 mg Instruction: 1 x 3 mg tablet, 1 x 5 mg tablet Condition: Saturday Dose/Route: 10 mg Instruction: 1 x 10 mg tablet Condition: Saturday Dose/Route: 8 mg Instruction: 1 x 3 mg tablet, 1 x 5 mg tablet Condition: Dose/Route: 10 mg Instruction: 1 x 10 mg tablet Condition: Saturday Dose/Route: 8 mg Instruction: 1 x 3 mg tablet, 1 x 5 mg tablet Condition: Saturday Dose/Route: 8 mg Instruction: 1 x 3 mg tablet, 1 x 5 mg tablet Protocol Text: Adjustment Start Date: Saturday10/23/21 INR Value: 2.2 INR Date: 10/23/21 Recheck Date: 11/06/21 Rx Instructions: 3 mg PO SAT,SAT,SAT,SAT with a 5 mg tablet to = 8 mg; or as directed; warfarin 5 mg tablet 5 mg PO .COMPLEX Protocol: Dose Management Condition: Saturday Dose/Route: 10 mg Instruction: 1 x 10 mg tablet Condition: Saturday Dose/Route: 8 mg Instruction: 1 x 3 mg tablet, 1 x 5 mg tablet Condition: Saturday Dose/Route: 10 mg Instruction: 1 x 10 mg tablet Condition: Saturday Dose/Route: 8 mg Instruction: 1 x 3 mg tablet, 1 x 5 mg tablet Condition: Dose/Route: 10 mg Instruction: 1 x 10 mg tablet Condition: Saturday Dose/Route: 8 mg Instruction: 1 x 3 mg tablet, 1 x 5 mg tablet Condition: Saturday Dose/Route: 8 mg Instruction: 1 x 3 mg tablet, 1 x 5 mg tablet Protocol Text: Adjustment Start Date: Saturday10/23/21 INR Value: 2.2 INR Date: 10/23/21 Recheck Date: 11/06/21 Rx Instructions: 5 mg PO PO SAT,WED,SAT,SAT with a 3 mg tablet to = 8 mg; or as directed; diltiazem HCl 240 mg capsule,extended release 24 hr 240 mg PO DAILY Qty: 90 4RF potassium chloride 20 mEq tablet extended release 20 meq PO BID Qty: 180 3RF Primary Care Provider: Guicho Floyd Referrals: Guicho Floyd MD [Primary Care Provider] - Disposition Disposition: Home, Self Care
[2022-11-14] MEDS: Colchicine 0.6 MG TABLET 1.2 MG PO (17:38)
== END 2022-11-14 17:48 | disposition home or self-care (01) ==
PROVIDERS: Emergency Provider Student in an Organized Health Care Education/Training Program; PCP Family Medicine; Visit Provider Student in an Organized Health Care Education/Training Program
DX: R06.00 Dyspnea, unspecified (principal); I48.19 Other persistent atrial fibrillation; M10.9 Gout, unspecified; Z79.01 Long term (current) use of anticoagulants; I10 Essential (primary) hypertension; Z79.899 Other long term (current) drug therapy; F41.9 Anxiety disorder, unspecified
CPT/HCPCS: 71045; 73610; 73630; 80048; 83880; 84484; 85025; 85610; 93005; 94640; 96374; 99284; A4216

== ENCOUNTER → 2023-11-27 | Outpatient (CLI) | payer OTHER, SELFPAY ==
[2023-11-27 11:40] LABS: Anion Gap 6 (5-15); BUN 16 mg/dL (7-18); BUN/Creat Ratio 16.3 RATIO (10-20); Chloride 103 mmol/L (98-107); Creatinine, Serum 0.98 mg/dL (0.70-1.30); EST Glomerular Filtration Rate 84 mL/min (>60); Est Glom Filt Rate - Afr Amer 102 mL/min (>60); Glucose 130 mg/dL (74-106); Potassium 3.3 mmol/L (3.5-5.1); Sodium Level 138 mmol/L (136-145)
== END | disposition home or self-care (01) ==
LOC: LAB 10:33
PROVIDERS: PCP Family Medicine; Referring Provider Physician Assistant Medical; Visit Provider Physician Assistant Medical
DX: I48.19 Other persistent atrial fibrillation (principal)
CPT/HCPCS: 36415; 80048

== ENCOUNTER 2024-06-21 18:54 | Inpatient (IN) | payer OTHER, SELFPAY ==
[2024-06-21 18:55] VITALS: BP 127/59; PULSE 78; RESP 16; TEMP 36.8; O2SAT 95; BMI 70.4
--- NOTE | 2024-06-21 19:18 | EDS_ITS ---
HPI History of Present Illness Chief Complaint: Edema Informant: patient and spouse/S.O. Narrative Narrative: 53-year-old male Muslim presenting with his triage for pain and swelling in his left foot that started 2 or 3 days ago spontaneously, gradually worsening. he states it started in the area between the first and second MTPJ's/metatarsals in the forefoot, feeling like a gout attack but since then it has spread up the tibial aspect of the foot toward the ankle and occasionally radiating up the leg when he tries to put weight on it which hurts worse, and over across the dorsum of the midfoot toward the other side where he saw a couple of red streaks that were new. Denies any systemic symptoms other than feeling hot earlier today, but did not take his temperature. Denies any injury to this area. [facility] Medical History (Updated 06/21/24 @ 20:[address] Phillip Pillai MD) Gout Persistent atrial fibrillation Blindness of both eyes Anxiety GI bleed Hay fever Acute lumbar radiculopathy Morbid obesity Super-super obese Colitis Perforated diverticulum Diverticulitis residential current use of anticoagulant Essential hypertension Perforation of sigmoid colon due to diverticulitis Pneumonia Atrial fibrillation with RVR (08/11/19) Home Medications ?Medication ?Instructions ?Recorded ?Last Taken ?Type lisinopril 40 mg tablet 40 mg PO DAILY #90 tabs 07/18/20 10/24/21 Rx acetaminophen 500 mg capsule 1,000 mg (2 x 500 mg) PO Q8H PRN 05/15/21 Unknown Rx PRN pain #1 cap furosemide 40 mg tablet 40 mg PO DAILY hypertension #90 09/04/21 Unknown Rx tabs warfarin 5 mg tablet 7 mg PO FR 09/05/21 Unknown History metolazone 5 mg tablet See Rx Instructions .Route 05/29/23 Unknown History .COMPLEX PRN edema potassium chloride 20 mEq 20 meq PO BID #180 tabs 06/04/23 Unknown Rx tablet,extended release diltiazem HCl 240 mg capsule,24 240 mg PO DAILY Heart Rate Control 11/27/23 Unkn own Rx hr,extended release #90 caps warfarin 10 mg tablet 8 mg PO SUMOTUWETHSA takes 8 mg 06/21/24 Unknown History all other days Allergy/AdvReac Type Severity Reaction Status Date / Time cephalexin (From [employer]) Allergy Rash Verified 06/21/24 18:55 Family History Father Atrial fibrillation Sister Atrial fibrillation Sister Atrial fibrillation Surgical History History of cardioversion (10/24/21) History of tonsillectomy Social History Smoking Status: Never smoker ROS ROS ED Constitutional Constitutional ED: Reports other Details: Feeling hot off-and-on today see HPI ; Denies chills or fever(s) Cardiovascular Cardiovascular: Reports pedal edema; Denies chest pain Respiratory/Chest Respiratory/Chest: Denies dyspnea Musculoskeletal Musculoskeletal: Reports extremity pain; Denies neck pain Integumentary Reports wounds and other Details: Chronic wound right betts that has been healing. Not painful or draining. ; Denies Abrasions or rash Neurologic Neurologic: Denies paresthesias or weakness EXAM Physical Exam Const Vital Signs: 06/21/24 18:55 06/21/24 19:31 Temperature 98.3 F Temperature Source Oral Pulse Rate 78 Respiratory Rate 16 Respiratory Effort Normal Non-Labored Respiratory Pattern Normal Blood Pressure 127/59 H Blood Pressure Mean 81 Pulse Ox 95 Oxygen Delivery Method Room Air Positive well nourished, well developed and obese General Appearance ED: well developed and NAD Nutritional Appearance: obese Neck full ROM and supple Back/Spine normal ROM and normal to inspection Extremity Extremity Narrative: Edema of both lower legs symmetric, except for the feet which is worse on the left. In both lower legs, there is discoloration that is dark and consistent with chronic stasis dermatitis. There are some healing nontender wounds at the proximal aspect of this on the right betts but not the left. On the left foot and ankle and lower leg, there are no wounds to suggest a nidus for infection. I can passively move the left great toe without any significant discomfort at the MTPJ. That joint in particular is not erythematous or warm. The majority of the tenderness is in the dorsal forefoot between the first and second metatarsals. There is no fluctuance or obvious abnormalities on palpation. The entire area is swollen which limits the exam, this progresses all the way up the dorsum of the foot to the ankle but not necessarily beyond acutely. There are some very slight erythema dorsal midfoot near the ankle, but not particularly tender superficially. Plantar aspect is unremarkable. There is no fluctuance to any of the swelling. There is no tenderness lateral/peroneal aspect of the foot. The lower leg is nontender including the calf, knee, thigh. There is no inguinal lymphadenopathy or palpable tenderness there, however his morbid obesity limits is part of the exam as well. Neuro oriented x3, no focal motor deficits and no sensory deficits noted Sensorium / Orientation: alert Psych mental status grossly normal and thought process normal Skin Skin Narrative: See extremity exam for details with the guards to the legs. No other rashes or lesions. Rashes: no rashes MDM MDM MDM Narrative Medical decision making narrative: As I discussed with this patient I am more worried about there being a soft tissue infection in the foot then I am about this being gout. I discussed his reasons for him, he states it started like feeling gout but he is in agreement it may not be that. He understands that the treatments for these are opposite each other, virtually. Therefore workup was performed including CBC, BMP, ESR, CRP, uric acid, as well as x-rays of the affected area. Patient's uric acid is slightly elevated, however in this case I do not think this is specific for gouty arthritis since he has pain and swelling in a fairly diffuse area of the foot and it is not localized to 1 joint. Furthermore he has an elevated ESR, CRP, and white blood count. I think this is cellulitis to proven otherwise. I obtained x-rays of the foot, 3 views of my interpretation show diffuse soft tissue swelling but nothing focal on the bone. Radiology as if there may be some subcutaneous air around the area of the distal fibula. This is not palpable clinically. There is no change on reevaluation I do not think this is likely necrotizing fasciitis, this did not come on over course of hours, it has been several days, but I think he would benefit from admission possibly advanced imaging such as MRI I do not think a CT is going to be helpful right now, but I did treat him empirically with vancomycin and he is comfortable with that plan. Additionally his INR is 1.6. I do not think he needs to be tested emergently for a clot, this is more consistent with infection. Lab Data Attestation: I reviewed the patient's lab results. Labs: Laboratory Results - last 24 hr 06/21/24 19:27 WBC 13.1 H RBC 4.94 Hgb 13.4 Hct 41.2 MCV 83.4 MCH 27.1 MCHC 32.5 RDW Std Deviation 45.8 H RDW Coeff of Tg 15.2 H Plt Count 259 MPV 9.9 Immature Gran % (Auto) 0.300 Neut % (Auto) 76.5 H Lymph % (Auto) 13.6 L [place] % (Auto) 8.0 Eos % (Auto) 1.4 Baso % (Auto) 0.2 Absolute Neuts (auto) 10.0 H Absolute Lymphs (auto) 1.77 Nucleated RBC % 0 ESR 31 H PT 18.7 H INR 1.6 Sodium 139 Potassium 3.5 Chloride 105 Carbon Dioxide 29.0 Anion Gap 5 BUN 17 Creatinine 0.91 Estim Creat Clear Calc 179.53 Est GFR (MDRD) Af Amer 111 Est GFR (MDRD) Non-Af 92 BUN/Creatinine Ratio 18.6 Glucose 107 H Uric Acid 7.6 H Calcium 8.5 C-React Prot Ext Range 86.00 H Radiography Diagnostic Testing: Clinical Impression(s) from Imaging Studies Foot X-Ray 06/21/24 19:30 IMPRESSION: 1. Soft tissue swelling around the ankle with soft tissue air overlying the region of the distal fibula. 2. Diffuse soft tissue swelling around the foot suggesting an infectious process. Electronically Signed: Andrew Smyth MD at 19:45 EDT Reading Location ID and State: [facility] / [place] , Service support , Management Discussion w/another healthcare provider: Hospitalist Discharge Plan Dx/Rx/DC Orders Clinical Impression: Cellulitis of left foot, Warfarin-induced coagulopathy Disposition Disposition: Acute Care Hospital [facility]
--- NOTE | 2024-06-21 19:30 | RAD_ITS ---
EXAM: XR LEFT FOOT COMPLETE, 3 OR MORE VIEWS CLINICAL INDICATION: pain, swelling TECHNIQUE: Frontal, lateral and oblique views of the left foot. COMPARISON: 11/12/2022 FINDINGS: BONES/JOINTS: Degenerative changes of the first tarsometatarsal joint. Achilles spur. Calcaneal spur. No acute fracture. No subluxation. Normal alignment. No sclerotic or destructive changes observed. SOFT TISSUES: Soft tissue swelling around the ankle with soft tissue air overlying the region of the distal fibula. Diffuse soft tissue swelling around the foot suggesting an infectious process. No radiopaque foreign body. RAD/Foot min 3 Views IMPRESSION: 1. Soft tissue swelling around the ankle with soft tissue air overlying the region of the distal fibula. 2. Diffuse soft tissue swelling around the foot suggesting an infectious process. Electronically Signed: Andrew Smyth MD at 19:45 EDT ,
[2024-06-21 19:51] LABS: Absolute Lymphocyte Count 1.77 X10^3/uL (0.83-4.51); Basophil# 0.03 X10^3/uL; Basophil% 0.2 % (0-1); Eosinophil# 0.18 X10^3/uL; Eosinophils% 1.4 % (0-5); Hematocrit 41.2 % (40-54); Hemoglobin 13.4 g/dL (13.0-16.5); Lymphocyte # 1.77 X10^3/ul (0.83-4.51); Lymphocyte % 13.6 % (19-41); Mean Corp Hgb Conc 32.5 g/dL (32-36); Mean Corpuscular Hgb 27.1 pg (27.0-32.0); Mean Corpuscular Volume 83.4 fL (80-94); Mean Platelet Vol. 9.9 fl (6.2-12.0); Monocyte# 1.04 X10^3/uL; NRBC Flagged by Analyzer 0 % (0-5); Neutrophil # 9.99 X10^3/uL (2.7-7.7); Neutrophil % 76.5 % (47-70); Platelet Count 259 K/mm3 (150-450); RBC Distribution Width CV 15.2 % (11.6-14.6); RBC Distribution Width SD 45.8 fl (35.1-43.9); Red Blood Count 4.94 M/mm3 (4.6-6.2); White Blood Count 13.1 K/mm3 (4.4-11.0)
[2024-06-21 20:00] LABS: International Normalized Ratio 1.6; Prothrombin Time (Protime)PT. 18.7 SECONDS (11.7-14.9)
[2024-06-21] MEDS: Vancomycin HCl 2,000 MG in 0.9% Normal Saline (500mL Bag) 500 ML 250 MG IV (20:15)
[2024-06-21 20:19] LABS: Erythrocyte Sedimentation Rate 31 mm/hr (0-20)
[2024-06-21 20:38] LABS: Anion Gap 5 (5-15); BUN 17 mg/dL (7-18); BUN/Creat Ratio 18.6 RATIO (10-20); Calcium,Total 8.5 mg/dL (8.5-10.1); Chloride 105 mmol/L (98-107); Creatinine, Serum 0.91 mg/dL (0.70-1.30); EST Glomerular Filtration Rate 92 mL/min (>60); Est Glom Filt Rate - Afr Amer 111 mL/min (>60); Estimated Creatinine Clearance 179.53 ml/min; Glucose 107 mg/dL (74-106); Potassium 3.5 mmol/L (3.5-5.1); Sodium Level 139 mmol/L (136-145); Uric Acid 7.6 mg/dL (3.5-7.2)
[2024-06-21] MEDS: Morphine 4 MG/ML Syringe IV (20:43)
--- NOTE | 2024-06-21 20:51 | PCM.HP.STD ---
[facility] - General General Date of Admission: 06/21/24 Date of Service: 06/21/24 Chief Complaint: Left Foot Pain, Redness and Swelling. HPI Narrative RASTA MEDINA, is a 53 M with a past medical history of essential hypertension, morbid obesity; with BMI of 70.4 this admission, KAYLIN, chronic atrial fibrillation; on diltiazem and coumadin (since 2018), history of multiple DCCV's (2019 & 2021); with subsequent relapse into atrial fibrillation, history of GI bleed, listed allergy to Keflex (rash), history of lumbar radiculopathy, history of cataracts; s/p removal with lens placement, history of colitis, history of perforated diverticulum due to diverticulitis, history of pneumonia, generalized anxiety, chronic venous stasis dermatitis of both LE's, wound of Right betts; currently healing, Gout and OA who presents to [facility] ER complaining of pain, swelling and redness of the Left foot. Mr. Medina reports his symptoms began approximately 2-3 days prior to admission with the abrupt-onset of swelling in his Left foot with pain primarily emanating from between the 1'st and 2nd metatarsophalangeal joints before spreading to the entire foot along with redness streaking up into the Left betts area. He states his Acute Gout Flares in the past were diverse from this presentation with this one more painful along with more rapid swelling and redness of his foot - with his typical attack focused in the MTP joint of his great toe. He states the pain is made worse by weight bearing and attempting to ambulate and he needed his son's help to get up out of a chair and to bring him in to the hospital. He denies recent traumatic injury to the area or recent wounds near this area. He admits to 'feeling hot' intermittently throughout the day but he never actually took his temperature. He denies objective fever, chills, nausea, vomiting, diarrhea, constipation, abdominal pain, chest pain or SOB but he does admit to increasing pain, redness and swelling of his Left foot. In the ER he was diagnosed with Cellulitis of the Left Foot with Leukocytosis of 13.6K present on admission complicated by Acute Gout Flare; evidenced by Hyperuricemia of 7.6 mg/dL present on admission with a highly elevated C-RP of 86 present on admission with confirmatory X-ray of the Left foot revealing soft tissue swelling around the ankle with soft tissue air overlying the region of the distal fibula due to suspected infection and he was then admitted to the general medical floor for ongoing care for a stay that is expected to extend beyond 2 midnights. [facility] Medical History Kidney stones Non-smoker CPAP (continuous positive airway pressure) dependence Sleep apnea Atrial fibrillation Congestive heart failure (CHF) Hypertension Gout Persistent atrial fibrillation Blindness of both eyes Anxiety GI bleed Hay fever Acute lumbar radiculopathy Morbid obesity Super-super obese Colitis Perforated diverticulum Diverticulitis nursing home current use of anticoagulant Essential hypertension Perforation of sigmoid colon due to diverticulitis Pneumonia Atrial fibrillation with RVR (08/11/19) Home Medications ?Medication ?Instructions ?Recorded ?Last Taken ?Type lisinopril 40 mg tablet 40 mg PO DAILY for blood pressure 07/18/20 06/21/24 Rx #90 tabs acetaminophen 500 mg capsule 1,000 mg (2 x 500 mg) PO Q8H PRN 05/15/21 Unknown Rx PRN pain #1 cap furosemide 40 mg tablet 40 mg PO DAILY hypertension #90 09/04/21 06/20/24 Rx tabs warfarin 5 mg tablet 7 mg PO FR for afib 09/05/21 Unknown History metolazone 5 mg tablet See Rx Instructions .Route 05/29/23 Unknown History .COMPLEX PRN edema potassium chloride 20 mEq 20 meq PO BID supplement #180 tabs 06/04/23 06/21/24 Rx tablet,extended release diltiazem HCl 240 mg capsule,24 240 mg PO DAILY Heart Rate Control 11/27/23 06/21/24 Rx hr,extended release #90 caps diazepam 2 mg tablet 2 mg PO DAILY PRN anxiety 06/21/24 Unknown History warfarin 10 mg tablet 8 mg PO SUMOTUWETHSA takes 8 mg 06/21/24 06/20/24 History all other days- for afib Allergy/AdvReac Type Severity Reaction Status Date / Time cephalexin (From [facility]) Allergy Rash Verified 06/21/24 18:55 Family History Father Atrial fibrillation Sister Atrial fibrillation Sister Atrial fibrillation Surgical History History of cardioversion (10/24/21) History of tonsillectomy Social History Smoking Status: Never smoker ROS ROS Narrative Review of Systems: Constitutional: Patient denies objective fever or chills. Eyes: Patient is blind in both eyes. ENT: Patient denies runny nose, sore throat or ear pain. Resp: Patient denies SOB or cough. CV: Patient denies chest pain, palpitations or heart racing. GI: Patient denies abdominal pain, nausea, vomiting, diarrhea or constipation. : Patient denies dysuria or hematuria. MSK: Patient admits to pain, swelling and redness of the Left foot in the setting of known bilateral LE chronic venous stasis as per HPI. Skin: Patient has chronic venous stasis of legs with hyperpigmentation with chronic Right betts wound that is healing and nontender but he denies rash or jaundice. Psych: Patient denies symptoms of uncontrolled depression or anxiety. Neuro: Patient denies headache, paresthesias or focal neurologic weakness. Allergy: Patient denies lip swelling, tongue swelling or urticaria. Hematology: Patient admits to easy bleeding on coumadin. Endocrinology: Patient denies polyuria, polydipsia or polyphagia. 14 point ROS otherwise negative except for positives noted above. Vital Signs Vital Signs Vital Signs: 06/21/24 18:55 06/21/24 19:31 Temperature 98.3 F Temperature Source Oral Pulse Rate 78 Respiratory Rate 16 Respiratory Effort Normal Non-Labored Respiratory Pattern Normal Blood Pressure 127/59 H Blood Pressure Mean 81 Pulse Ox 95 Oxygen Delivery Method Room Air Weight Weight: 504 lb 13.737 oz Body Mass Index (BMI) 70.4 Physical Exam Const alert and oriented x3 Constitutional Narrative: Mild distress noted with morbidly obese patient. General Appearance: cooperative HEENT normocephalic, head/scalp atraumatic, hearing grossly normal bilaterally and moist oral mucous membranes Eyes PERRL and EOMs intact bilaterally Neck no lymphadenopathy and supple Resp normal respiratory effort, no retractions, no use of accessory muscles and clear to auscultation bilaterally Cardio regular rate and regular rhythm GI normal to inspection, nondistended, normoactive bowel sounds, soft to palpation, non-tender and non-distended GI Narrative: Morbidly obese. Extremity Extremity Narrative: Left foot edematous and erythematous with TTP and no signs of vascualar compromise. Skin Skin Narrative: Patient has chronic venous stasis changes with hyperpigmentation and a ~3 cm healing wound over the Right betts without TTP. Neuro oriented x3, CN's II-XII intact bilaterally, moves all extremities and no focal motor deficits Sensorium / Orientation: awake, alert, oriented to person, oriented to place and oriented to time Speech: speech normal Psych affect normal Results Medical Records Data Attestation: I reviewed the patient's medical records Lab / Micro Data Attestation: I reviewed the patient's lab results. 06/21/24 19:06/21/24 19: Labs: Laboratory Results - last 24 hr 06/21/24 19:: WBC 13.1 H, RBC 4.94, Hgb 13.4, Hct 41.2, MCV 83.4, MCH 27.1, MCHC 32.5, RDW Std Deviation 45.8 H, RDW Coeff of Tg 15.2 H, Plt Count 259, MPV 9.9, Immature Gran % (Auto) 0.300, Neut % (Auto) 76.5 H, Lymph % (Auto) 13.6 L, [place] % (Auto) 8.0, Eos % (Auto) 1.4, Baso % (Auto) 0.2, Absolute Neuts (auto) 10.0 H, Absolute Lymphs (auto) 1.77, Nucleated RBC % 0, ESR 31 H, PT 18.7 H, INR 1.6, Sodium 139, Potassium 3.5, Chloride 105, Carbon Dioxide 29.0, Anion Gap 5, BUN 17, Creatinine 0.91, Estim Creat Clear Calc 179.53, Est GFR (MDRD) Af Amer 111, Est GFR (MDRD) Non-Af 92, BUN/Creatinine Ratio 18.6, Glucose 107 H, Uric Acid 7.6 H, Calcium 8.5, C-React Prot Ext Range 86.00 H Imaging Radiology Impression Foot X-Ray 06/21/24 19:30 IMPRESSION: 1. Soft tissue swelling around the ankle with soft tissue air overlying the region of the distal fibula. 2. Diffuse soft tissue swelling around the foot suggesting an infectious process. 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 Cellulitis of the Left Foot with Leukocytosis of 13.6K present on admission with confirmatory X-ray of the Left foot revealing soft tissue swelling around the ankle with soft tissue air overlying the region of the distal fibula due to suspected infection in the setting of known Chronic Venous Stasis Dermatitis and Chronic Gout - Admit to general medical floor. Continue empiric IV Vancomycin begun in the ER and IV Levaquin (with listed allergy to Keflex). Check MRI of the Left foot in AM to with gas suspected at the distal tibia. Give Tylenol prn for [id number] (level 1-5/10) pain or fever. Give Morphine IV prn for severe (level 6-10/10) pain. Finally, we will consult the orthopod on-call to see this patient on-rounds in the AM for further recommendations on treatment with help appreciated in advance. 2. Acute Gout Flare; evidenced by Hyperuricemia of 7.6 mg/dL present on admission plus atraumatic foot pain with a highly elevated C-RP of 86 present on admission complicating #1 - Patient cannot take Colchicine due to Cardizem. He also cannot start steroids until infection in deep tissues ruled out. 3. Chronic Atrial Fibrillation; on diltiazem and coumadin (since 2019) adding to the medical complexity of #1 & #2 - Hold coumadin with subtherapeutic INR of 1.6 present on admission. 4. Morbid obesity; with BMI of 70.4 this admission plus KAYILN adding to the burden of disease outlined from #1 - #3 with Ambulatory Dysfunction due to pain - Weight loss will be recommended. Continue nocturnal CPAP. Check TSH. Finally, we will consult PT/OT and Case Management to see this patient on-rounds in the AM for further recommendations with help appreciated in advance. 5. Essential hypertension - Resume home regimen plus give prn IV Hydralazine for systolic blood pressure > 160 mmHg. 6. History of multiple DCCV's (2019 & 2021) - Noted. 7. History of GI bleed - Noted. 8. Listed allergy to Keflex (rash) - Noted. 9. History of cataracts; with removal and lens placement - Stable. 10. History of lumbar radiculopathy - Noted. 11. History of colitis - Noted. 12. History of perforated diverticulum due to diverticulitis - Noted. 13. History of pneumonia - Noted. 14. Generalized anxiety - Give Xanax prn for breakthrough symptoms. 15. OA - Give Tylenol prn. 16. DVT prophylaxis - Place SCD on RLE. Hold couamdin with possible impending I&D. Total time: Approximately (but not less than) 75 minutes. Charges/Coding Visit Charges Inpatient E&M: 57278 Init Hosp L3
[2024-06-21 21:28] VITALS: BP 125/66; PULSE 78; RESP 20; TEMP 37.1; O2SAT 94
[2024-06-21 22:20] VITALS: BMI 63.2
--- NOTE | 2024-06-21 22:40 | PCM.RX.CS ---
Consult Antibiotic Management Pharmacy has been consulted to manage selected antibiotic: Vancomycin Type of Intervention Type of Consult: New start Suspected Infection Suspected Infection: Skin/Soft tissue Labs Labs: Sodium 139 mmol/L (136-145) 06/21/24 19: Potassium 3.5 mmol/L (3.5-5.1) 06/21/24 19: Chloride 105 mmol/L (98-107) 06/21/24 19:27 Carbon Dioxide 29.0 mmol/L (21.0-32.0) 06/21/24 19:27 Anion Gap 5 (5-15) 06/21/24 19:27 BUN 17 mg/dL (7-18) 06/21/24 19: Creatinine 0.91 mg/dL (0.70-1.30) 06/21/24 19:27 Est GFR (MDRD) Af Amer 111 mL/min (>60) 06/21/24 19: Est GFR (MDRD) Non-Af 92 mL/min (>60) 06/21/24 19: BUN/Creatinine Ratio 18.6 RATIO (10-20) 06/21/24 19:27 Glucose 107 mg/dL (74-106) H 06/21/24 19:27 Goal Trough Goal Trough: 15-20 mcg/mL Pharmacy Plan for Drug Dosing Pharmacy Plan for Drug Dosing: NEW START IV VANCOMYCIN Consulting Physician: Dr. White Indication: Cellulitis Goal Trough: 15-20 SrCr: 0.91 CrCl > 110 ml/min Comments: Received 2000mg x1 dose in ED @ 20:15 06/21/24 Vancomycin Dose: 1500mg Q8H to start @ 04:00 06/22/24 Pending Level: Vancomycin trough @ 19:30 06/22/24 prior to 4th dose Pharmacy Service will continue to monitor and adjust dosing as required. Follow-Up Labs Follow-Up Labs: Trough: Vancomycin (06/22/24 @ 19:30)
[2024-06-21] MEDS: Potassium Chloride Oral Tablet 20 MEQ PO (23:26)
[2024-06-21] MEDS: Lactobacillis Acidophilus 1 CAP PO (23:26)
[2024-06-21 23:27] VITALS: BP 149/87; PULSE 87; RESP 18; TEMP 37.3; O2SAT 93
[2024-06-21 23:29] LABS: International Normalized Ratio 1.5; Prothrombin Time (Protime)PT. 18.2 SECONDS (11.7-14.9)
[2024-06-21 23:56] LABS: Erythrocyte Sedimentation Rate 21 mm/hr (0-20)
[2024-06-22] MEDS: Morphine 2 MG/ML Syringe IV ×2 (03:38→10:01)
[2024-06-22] MEDS: Vancomycin HCl 1,500 MG in 0.9% Normal Saline (500mL Bag) 500 ML 250 MG IV ×3 (05:04→22:00)
[2024-06-22 05:09] VITALS: BP 116/60; PULSE 84; RESP 18; TEMP 37.5; O2SAT 97
[2024-06-22 06:58] LABS: International Normalized Ratio 1.5; Prothrombin Time (Protime)PT. 17.9 SECONDS (11.7-14.9)
[2024-06-22 07:27] LABS: Uric Acid 7.8 mg/dL (3.5-7.2)
--- NOTE | 2024-06-22 08:20 | RAD_ITS ---
STUDY: X-RAY - ORBITS REASON FOR EXAM: Male, 53 years old. HX METAL TO EYE; PRE MRI TECHNIQUE: 2 view(s) of the orbits were obtained. COMPARISON: None. FINDINGS: Normal bilateral orbits without a metallic orbital foreign body. Normal visualized facial bones. Normal paranasal sinuses. The soft tissue structures are unremarkable. RAD/Orbits for Foreign Body IMPRESSION: No demonstrated metallic orbital foreign body. The patient is cleared for an MRI examination. Electronically Signed: Ravi Cazares MD at 8:34 EDT ,
[2024-06-22] MEDS: levoFLOXacin IV 750 MG/150 ML BAG 100 MG IV (09:08)
[2024-06-22] MEDS: Potassium Chloride Oral Tablet 20 MEQ PO ×2 (09:10→17:35)
[2024-06-22] MEDS: dilTIAZem CD 240 MG Capsule PO (09:10)
[2024-06-22] MEDS: Zinc Sulfate 50 mg zinc (220 mg) ORAL capsule PO (09:11)
[2024-06-22] MEDS: Ascorbic Acid 500 MG Tablet 1000 MG PO ×2 (09:11→17:35)
[2024-06-22] MEDS: Furosemide 40 MG Tablet PO (09:11)
[2024-06-22] MEDS: Cholecalciferol (Vit D3) 125 MCG CAPSULE (5,000 UNITS) PO (09:11)
[2024-06-22] MEDS: Lisinopril 40 MG Tablet PO (09:11)
[2024-06-22] MEDS: Lactobacillis Acidophilus 1 CAP PO ×4 (09:11→21:44)
--- NOTE | 2024-06-22 10:26 | CASEMGMT ---
Addendum entered by Phuong Rosales 06/22/24 14:18: Offered for pt to speak with [facility] liaison and pt declined at this time. He states he is aware of her and has spoke with her in the past. He felt the information provided was sufficient for him. Addendum entered by Phuong Rosales 06/22/24 14:11: Searched local bariatric clinics, results turned to one in [place]. TC to [facility], spoke with hr receptionist who states that Dr. Ornelas did [employer] counseling but has since left. She states the closest is [facility]. Printed information for [facility] including FAQ's, locations and medical weight loss information and provided to pt. Pt states that he did work with approx 4 years ago and then went to [facility] for the surgery but feels he was denied based on his insurance. Pt requests another provider such as [facility]. Pt speaks of other methods he has tried such as [employer] and that he lost 100 pounds but gained back after being ill in the hospital. TC to [employer] to see of any information that could be obtained. She did not have anything to offer for pt regarding medical wt loss other than the hospital program. Printed [facility] information for pt and provided at this time. Original Note: GAIL ESPINOZA Assessment: Face to Face with pt for initial transition planning/care coordination assessment. GAIL ESPINOZA introduced self and role at [facility], pt voices understanding and consents to assessment. Pt is A&O x4 and answers all questions appropriately at this time. Pt lying in bed in no distress. Care providers, pharmacy, and demographics verified/updated. Admitting Dx: cellulitis L foot and acute gout flare Strata Score: 1 PCP:Everett Specialists:Keely, cardio Preferred Pharmacy: [facility] Insurance: Pharmacy Development Prescription Benefit: no LNOK: Catherine Medina, Living Arrangements: Pt lives with in a two story home with 3 steps to enter at one entrance and 1+1 at a second entrance. Pt reports typically he is I in ADLs and denies concerns at home. 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 DME:FWW, CPAP, grab bar in shower, handicap accessible bathroom with walk in shower HHC/SNF: Denies hx of Pt states no concerns with going home at time of dc. Pt states he would like info regarding wt loss by a shot that the hospitalist spoke to him about. RN CM will look into this. Pt states no further concerns/needs. CM to follow. Advised pt to ask CM if any further question/concerns/needs arise, voices understanding. Pt Goal: Home Plan: Home Nicolas REYNOLDS CM
[2024-06-22 10:58] VITALS: BP 136/74; PULSE 98; RESP 18; TEMP 37; O2SAT 96
--- NOTE | 2024-06-22 11:44 | NURSING ---
nuclear medicine staff member, Carlton informed of Dr. Humphries's order to cancel the bone scan.
--- NOTE | 2024-06-22 14:42 | PCM.PROGNOTE ---
Subjective Subjective Patient seen and examined. He still complained of pain in his left foot. He denied any fever, chills, cough, chest pain, palpitations, dizziness or any other symptoms. Review of systems is otherwise negative. Objective Data Objective Data Vital Signs: Vital Signs Temp Pulse Resp BP Pulse Ox O2 Del Method O2 Flow Rate 98.6 F 98 18 136/74 H 96 Room Air 2 06/22/24 10:58 06/22/24 10:58 06/22/24 10:58 06/22/24 10:58 06/22/24 10:58 06/22/24 10:59 06/22/24 05:09 Oxygen Flow Rate (L/min) 2 Oxygen Delivery Method Room Air Weight: 453 lb 4 oz Body Mass Index (BMI) 63.2 Intake & Output: Intake and Output for Last 24 Hours 06/20/24 06/21/24 06/22/24 23:59 23:59 23:59 Intake Total 1620 / 1620 Balance 1620 / 1620 Lab / Micro Data 06/21/24 19:27 06/21/24 19:27 Labs: Laboratory Results - last 24 hr 06/21/24 19:27: WBC 13.1 H, RBC 4.94, Hgb 13.4, Hct 41.2, MCV 83.4, MCH 27.1, MCHC 32.5, RDW Std Deviation 45.8 H, RDW Coeff of Tg 15.2 H, Plt Count 259, MPV 9.9, Immature Gran % (Auto) 0.300, Neut % (Auto) 76.5 H, Lymph % (Auto) 13.6 L, [place] % (Auto) 8.0, Eos % (Auto) 1.4, Baso % (Auto) 0.2, Absolute Neuts (auto) 10.0 H, Absolute Lymphs (auto) 1.77, Nucleated RBC % 0, ESR 31 H, PT 18.7 H, INR 1.6, Sodium 139, Potassium 3.5, Chloride 105, Carbon Dioxide 29.0, Anion Gap 5, BUN 17, Creatinine 0.91, Estim Creat Clear Calc 179.53, Est GFR (MDRD) Af Amer 111, Est GFR (MDRD) Non-Af 92, BUN/Creatinine Ratio 18.6, Glucose 107 H, Uric Acid 7.6 H, Calcium 8.5, C-React Prot Ext Range 86.00 H 06/21/24 23:05: ESR 21 H, PT 18.2 H, INR 1.5 06/22/24 06:11: PT 17.9 H, INR 1.5, Uric Acid 7.8 H Radiography Diagnostic Testing: Radiology Impression Foot X-Ray 06/21/24 19:30 IMPRESSION: 1. Soft tissue swelling around the ankle with soft tissue air overlying the region of the distal fibula. 2. Diffuse soft tissue swelling around the foot suggesting an infectious process. Electronically Signed: Andrew Smyth MD at 19:45 EDT , Orbit X-Ray 06/22/24 08:20 IMPRESSION: No demonstrated metallic orbital foreign body. The patient is cleared for an MRI examination. Electronically Signed: Ravi Cazares MD at 8:34 EDT , Physical Exam Const alert, oriented x3 and no apparent distress Constitutional Narrative: super morbid obesity General Appearance: cooperative HEENT normocephalic, head/scalp atraumatic and moist oral mucous membranes Eyes PERRL and EOMs intact bilaterally Neck no lymphadenopathy, supple and no JVD Lymph Lymphatic: no lymphadenopathy noted and no lymphedema noted Resp normal respiratory effort, normal air movement and clear to auscultation bilaterally Cardio regular rate, regular rhythm, S1 normal heart sound, S2 normal heart sound and no murmurs GI normal to inspection, nondistended, normoactive bowel sounds, soft to palpation, non-tender and non-distended GI Narrative: obese abdomen Extremity Extremity Narrative: left foot is moderately swollen, warm to touch,. tender especially over the lateral aspect of the foot and under the arch. Skin Skin Narrative: as under extremities Neuro CN's II-XII intact bilaterally, no focal motor deficits, no sensory deficits noted and deep tendon reflexes 2+ bilaterally Motor Exam: strength 5/5 throughout and general weakness Psych thought process normal, cooperative and affect normal Appearance: appropriate Assessment & Plan Assessment/Plan (1) Gout flare: QUALIFIERS: Gout site: foot Gout etiology: unspecified cause Laterality: left Qualified Code(s): M10.9 - Gout, unspecified PLAN: Plan #Acute gout flare up, with possible super imposed celllulitis of the left foot Left foot swollen and warm to touch. Minimal erythema. X-ray of the left foot showed soft tissue swelling around the ankle with soft tissue air overlying the region of the distal fibula due to suspected infection Will start IV Solu-Medrol; patient states IV Solu-Medrol is usually what works for his foot. Cannot be on colchicine due to him being on Cardizem Also started on IV vancomycin and Levaquin due to concerns about infection. MRI of the foot was ordered on admission. Will consult podiatry and defer to podiatry about need for MRI. IV morphine as needed #Benign essential hypertension: #A-fib: On Cardizem. On Coumadin also. INR was 1.6 on admission. Coumadin currently on hold. #History of GI bleed: Stable #Super morbid obesity: BMI is 63.2. Complicates acute care, expected recovery and prognosis. DVT prophylaxis: SCDs. Coumadin currently on hold. Will place patient on therapeutic Lovenox for now because Coumadin is on hold. Charges/Coding Visit Charges Inpatient E&M: 65950 Subs Hosp L2
[2024-06-22 16:14] VITALS: BP 130/72; PULSE 88; RESP 18; TEMP 36.7; O2SAT 98
--- NOTE | 2024-06-22 16:24 | PCM.CONS.GEN ---
Assessment & Plan Assessment/Plan (1) Gout flare: QUALIFIERS: Gout etiology: unspecified cause Gout site: foot Laterality: left Qualified Code(s): M10.9 - Gout, unspecified PLAN: Patient was examined and evaluated. All findings were discussed with the patient. All questions were answered to the patient satisfaction. Three-view nonweightbearing left lower extremity radiographs: Bone-stock is within normal limits for the patient's race and age. Increase in soft tissue volume without defect. Evidence of radiolucency appreciated to the lateral ankle which is comparable to the patient's 11/14/22 plain film radiographs. No evidence of soft tissue air or emphysema. No additional abnormalities or fractures are noted. After physical examination there shows no evidence of full-thickness wounds to the bilateral lower extremity. This is most likely a gout flare due to the patient's continued stress as well as eating habits secondary to his daughters wedding that happened a few days to a week ago. Patient has history of gout flares and relates this to a possible flare. Since the patient's admission he has gotten 1 round of IV steroids prior to my visit and states improvement with pain and movement to the bilateral lower extremity. Continue IV antibiotics for prophylaxis. There is no concern for full-thickness wound or need for surgical intervention. There is no concern for gas gangrene or infectious process to the left lower extremity. Left lower extremities were wrapped with a single layer Sage compression bandage due to pitting edema. WBC: 13.1 CRP: 86 ESR: 31 -> 21 UA:7.6 -> 7.8 Medicine: On board, medical management Podiatry will continue to follow while patient is in house. Please reach out to Dr. Humphries for any question or concerns. Thank you for the consultation! (2) Pain in left leg: (3) Morbid obesity: HPI Consult Data Date of Consult: 06/22/24 HPI Narrative Reason for Consultation: Left lower extremity cellulitis HPI Narrative: RASTA BAUER, is a 53 M who presents with a past medical history of essential hypertension, morbid obesity; with BMI of 70.4 this admission, KAYLIN, chronic atrial fibrillation; on diltiazem and coumadin (since 2018), history of multiple DCCV's (2019 & 2021); with subsequent relapse into atrial fibrillation, history of GI bleed, listed allergy to Keflex (rash), history of lumbar radiculopathy, history of cataracts; s/p removal with lens placement, history of colitis, history of perforated diverticulum due to diverticulitis, history of pneumonia, generalized anxiety, chronic venous stasis dermatitis of both LE's, wound of Right betts; currently healing, Gout and OA who presents to [facility] complaining of pain, swelling and redness of the Left foot. Patient states that his pain started approximately 2 to 3 days prior to his admission where he was at a wedding where he was eating pork which has caused a gout flare in the past. He states that the pain started between the first and second toes and spread throughout the entire foot and since then he noticed redness and swelling of the left lower extremity. He denies any wounds or trauma to the left lower extremity. When questioned about any additional wounds throughout the body he declined and stated he has a healed scab to the anterior aspect of his right betts. Since his admission he has gotten 1 round of IV steroids and states that his pain and movement to the bilateral lower extremity has improved. Patient denies being diabetic. He denies any trauma. Denies constitutional symptoms. No other pedal complaints at this time. Podiatry consulted for evaluation of left lower extremity cellulitis versus gout. 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 Essential hypertension Perforation of sigmoid colon due to diverticulitis Pneumonia Atrial fibrillation with RVR (08/11/19) Home Medications ?Medication ?Instructions ?Recorded ?Last Taken ?Type lisinopril 40 mg tablet 40 mg PO DAILY for blood pressure 07/18/20 06/21/24 Rx #90 tabs acetaminophen 500 mg capsule 1,000 mg (2 x 500 mg) PO Q8H PRN 05/15/21 Unknown Rx PRN pain #1 cap furosemide 40 mg tablet 40 mg PO DAILY hypertension #90 09/04/21 06/20/24 Rx tabs warfarin 5 mg tablet 7 mg PO FR for afib 09/05/21 Unknown History metolazone 5 mg tablet See Rx Instructions .Route 05/29/23 Unknown History .COMPLEX PRN edema potassium chloride 20 mEq 20 meq PO BID supplement #180 tabs 06/04/23 06/21/24 Rx tablet,extended release diltiazem HCl 240 mg capsule,24 240 mg PO DAILY Heart Rate Control 11/27/23 06/21/24 Rx hr,extended release #90 caps diazepam 2 mg tablet 2 mg PO DAILY PRN anxiety 06/21/24 Unknown History warfarin 10 mg tablet 8 mg PO SUMOTUWETHSA takes 8 mg 06/21/24 06/20/24 History all other days- for afib Allergy/AdvReac Type Severity Reaction Status Date / Time cephalexin (From SCP Events) Allergy Rash Verified 06/21/24 18:55 Family History Father Atrial fibrillation Sister Atrial fibrillation Sister Atrial fibrillation Surgical History History of cardioversion (10/24/21) History of tonsillectomy Social History Smoking Status: Never smoker Physical Exam Narrative Vascular: DP and PT pulses are faintly palpable secondary to edema. CFT is brisk. Skin temperature gradient is warm to warm from proximal ankles to distal digit bilateral. Mild focal increase appreciated to left ankle. +2 pitting edema appreciated bilateral extremity. Neurological: Light touch intact. Patient response to painful stimuli. Dermatological: No full-thickness ulcerations appreciated bilateral lower extremity. No subcutaneous nodules. +2 pitting edema appreciated bilateral extremity. Evidence of blanchable erythema appreciated to left lower extremity when compared to the right. Evidence of sanguinous crust to the anterior right leg stable with no sign of infection. Musculoskeletal: Pain with range of motion to the first metatarsal phalangeal joint, ankle joint, midfoot to the left lower extremity. No pain with range of motion to the right lower extremity. Pain on palpation to the left lower extremity first metatarsal phalangeal joint, ankle, midfoot. No pain with calf compression. Const alert, oriented x3 and no apparent distress Lab / Micro Data 06/21/24 19:27 06/21/24 19:27 Labs: Laboratory Results - last 24 hr 06/21/24 19:27: WBC 13.1 H, RBC 4.94, Hgb 13.4, Hct 41.2, MCV 83.4, MCH 27.1, MCHC 32.5, RDW Std Deviation 45.8 H, RDW Coeff of Tg 15.2 H, Plt Count 259, MPV 9.9, Immature Gran % (Auto) 0.300, Neut % (Auto) 76.5 H, Lymph % (Auto) 13.6 L, [place] % (Auto) 8.0, Eos % (Auto) 1.4, Baso % (Auto) 0.2, Absolute Neuts (auto) 10.0 H, Absolute Lymphs (auto) 1.77, Nucleated RBC % 0, ESR 31 H, PT 18.7 H, INR 1.6, Sodium 139, Potassium 3.5, Chloride 105, Carbon Dioxide 29.0, Anion Gap 5, BUN 17, Creatinine 0.91, Estim Creat Clear Calc 179.53, Est GFR (MDRD) Af Amer 111, Est GFR (MDRD) Non-Af 92, BUN/Creatinine Ratio 18.6, Glucose 107 H, Uric Acid 7.6 H, Calcium 8.5, C-React Prot Ext Range 86.00 H 06/21/24 23:05: ESR 21 H, PT 18.2 H, INR 1.5 06/22/24 06:11: PT 17.9 H, INR 1.5, Uric Acid 7.8 H Imaging Radiology Impression Foot X-Ray 06/21/24 19:30 IMPRESSION: 1. Soft tissue swelling around the ankle with soft tissue air overlying the region of the distal fibula. 2. Diffuse soft tissue swelling around the foot suggesting an infectious process. Electronically Signed: Andrew Smyth MD at 19:45 EDT , Orbit X-Ray 06/22/24 08:20 IMPRESSION: No demonstrated metallic orbital foreign body. The patient is cleared for an MRI examination. Electronically Signed: Ravi Cazares MD at 8:34 EDT ,
[2024-06-22 21:21] LABS: Vancomycin, Trough Level 14.1 ug/mL (5.0-15.0)
--- NOTE | 2024-06-22 21:32 | PHA.PHARE_ITS ---
Consult Antibiotic Management Pharmacy has been consulted to manage selected antibiotic: Vancomycin Type of Intervention Type of Consult: Follow-up Suspected Infection Suspected Infection: Skin/Soft tissue Labs Labs: Sodium 139 mmol/L (136-145) 06/21/24 19: Potassium 3.5 mmol/L (3.5-5.1) 06/21/24 19: Chloride 105 mmol/L (98-107) 06/21/24 19:27 Carbon Dioxide 29.0 mmol/L (21.0-32.0) 06/21/24 19:27 Anion Gap 5 (5-15) 06/21/24 19:27 BUN 17 mg/dL (7-18) 06/21/24 19: Creatinine 0.91 mg/dL (0.70-1.30) 06/21/24 19:27 Est GFR (MDRD) Af Amer 111 mL/min (>60) 06/21/24 19: Est GFR (MDRD) Non-Af 92 mL/min (>60) 06/21/24 19: BUN/Creatinine Ratio 18.6 RATIO (10-20) 06/21/24 19:27 Glucose 107 mg/dL (74-106) H 06/21/24 19:27 Vancomycin Trough 14.1 ug/mL (5.0-15.0) 06/22/24 20:40 Goal Trough Goal Trough: 15-20 mcg/mL Pharmacy Plan for Drug Dosing Pharmacy Plan for Drug Dosing: VANCOMYCIN LEVEL RECEIVED Current Vancomycin Dose: 1500mg Q8H Number of Doses Received: 1500mg x2, 2000mg x1 Vancomycin Level: 14.1 Hours Since Last Dose: 8.5 Renal Function: NNL Lab/Micro: pending Vancomycin Plan/Comments: Continue Vancomycin 1500mg Q8H - not likely at steady- state yet and labs drawn late Pending Level: Vancomycin trough @ 19:30 06/23/24 Pharmacy Service will continue to monitor and adjust dosing as required. Follow-Up Labs Follow-Up Labs: Trough: Vancomycin (06/23/24 @ 19:30)
[2024-06-22] MEDS: 0.9% Saline Lock 10 ML Syringe IV (21:44)
[2024-06-22] MEDS: Enoxaparin 150 MG/ML Syringe SC (21:44)
[2024-06-22 22:16] VITALS: BP 130/63; PULSE 89; RESP 18; TEMP 36.9; O2SAT 94
[2024-06-23] MEDS: Vancomycin HCl 1,500 MG in 0.9% Normal Saline (500mL Bag) 500 ML 250 MG IV (04:13)
[2024-06-23 04:22] VITALS: BP 115/60; PULSE 81; RESP 18; TEMP 36.8; O2SAT 96
[2024-06-23 05:07] LABS: CRP, High Sensitivity 92.19 mg/L (0.00-3.00)
[2024-06-23 06:58] LABS: Absolute Lymphocyte Count 0.67 X10^3/uL (0.83-4.51); Absolute Neutrophil Count 10.7 X10^3/uL (2.0-7.7); Basophil# 0.02 X10^3/uL; Basophil% 0.2 % (0-1); Hemoglobin 13.8 g/dL (13.0-16.5); Lymphocyte # 0.67 X10^3/ul (0.83-4.51); Lymphocyte % 5.8 % (19-41); Mean Corp Hgb Conc 32.1 g/dL (32-36); Mean Platelet Vol. 10.4 fl (6.2-12.0); Monocyte# 0.15 X10^3/uL; Monocyte% 1.3 % (0-10); NRBC Flagged by Analyzer 0 % (0-5); Neutrophil # 10.73 X10^3/uL (2.7-7.7); Platelet Count 278 K/mm3 (150-450); RBC Distribution Width CV 15.3 % (11.6-14.6); RBC Distribution Width SD 46.4 fl (35.1-43.9); Red Blood Count 5.12 M/mm3 (4.6-6.2); White Blood Count 11.7 K/mm3 (4.4-11.0)
[2024-06-23 07:37] LABS: Anion Gap 5 (5-15); BUN 16 mg/dL (7-18); BUN/Creat Ratio 20.9 RATIO (10-20); Calcium,Total 8.8 mg/dL (8.5-10.1); Chloride 109 mmol/L (98-107); Creatinine, Serum 0.76 mg/dL (0.70-1.30); EST Glomerular Filtration Rate 113 mL/min (>60); Est Glom Filt Rate - Afr Amer 136 mL/min (>60); Estimated Creatinine Clearance 200.25 ml/min; Glucose 155 mg/dL (74-106); Potassium 4.6 mmol/L (3.5-5.1); Sodium Level 138 mmol/L (136-145)
--- NOTE | 2024-06-23 07:47 | PCM.PROGNOTE ---
Subjective Subjective Mr. Medina is a 53-year-old male seen at bedside this morning for bilateral lower extremity dressing change. Patient states his pain is improved. Denies any events overnight. Denies trauma. Denies constitutional symptoms. No other pedal complaints at this time. Objective Data Objective Data Vital Signs: Vital Signs Temp Pulse Resp BP Pulse Ox O2 Del Method O2 Flow Rate 98.3 F 81 18 115/60 96 Nasal Cannula 2 06/23/24 04:22 06/23/24 04:22 06/23/24 04:22 06/23/24 04:22 06/23/24 04:22 06/23/24 04:22 06/23/24 04:22 Oxygen Flow Rate (L/min) 2 Oxygen Delivery Method Nasal Cannula Weight: 205.591 kg Body Mass Index (BMI) 63.2 Intake & Output: Intake and Output for Last 24 Hours 06/21/24 06/22/24 06/23/24 23:59 23:59 23:59 Intake Total 2650 / 2650 1060 / 1060 Balance 2650 / 2650 1060 / 1060 Lab / Micro Data 06/23/24 06:27 06/23/24 06:27 Labs: Laboratory Results - last 24 hr 06/22/24 06:11: C-React Prot High Sens 92.19 H 06/22/24 20:40: Vancomycin Trough 14.1 06/23/24 06:27: WBC 11.7 H, RBC 5.12, Hgb 13.8, Hct 43.0, MCV 84.0, MCH 27.0, MCHC 32.1, RDW Std Deviation 46.4 H, RDW Coeff of Tg 15.3 H, Plt Count 278, MPV 10.4, Immature Gran % (Auto) 0.700, Neut % (Auto) 92.0 H, Lymph % (Auto) 5.8 L, [place] % (Auto) 1.3, Eos % (Auto) 0.0, Baso % (Auto) 0.2, Absolute Neuts (auto) 10.7 H, Absolute Lymphs (auto) 0.67 L, Nucleated RBC % 0, Sodium 138, Potassium 4.6, Chloride 109 H, Carbon Dioxide 24.0, Anion Gap 5, BUN 16, Creatinine 0.76, Estim Creat Clear Calc 200.25, Est GFR (MDRD) Af Amer 136, Est GFR (MDRD) Non-Af 113, BUN/Creatinine Ratio 20.9 H, Glucose 155 H, Calcium 8.8 Radiography Diagnostic Testing: Radiology Impression Orbit X-Ray 06/22/24 08:20 IMPRESSION: No demonstrated metallic orbital foreign body. The patient is cleared for an MRI examination. Electronically Signed: Ravi Cazares MD at 8:34 EDT , Physical Exam Narrative Vascular: DP and PT pulses are palpable. CFT is brisk. Skin temperature gradient is warm to warm from proximal ankles to distal digit bilateral. No focal increases appreciated left lower extremity. Nonpitting edema appreciated bilateral lower extremity. Neurological: Light touch intact. Patient response to painful stimuli. Dermatological: No full-thickness ulcerations appreciated bilateral lower extremity. No subcutaneous nodules. Nonpitting edema appreciated bilateral lower extremity. Erythema is improved to left lower extremity. Musculoskeletal: Minimal pain with range of motion to the first metatarsophalangeal joint, ankle joint and midfoot to left lower extremity. No pain with calf compression bilateral. Const alert, oriented x3 and no apparent distress Assessment & Plan Assessment/Plan (1) Gout flare: QUALIFIERS: Gout site: foot Gout etiology: unspecified cause Laterality: left Qualified Code(s): M10.9 - Gout, unspecified PLAN: Patient was examined and evaluated. All findings were discussed with the patient. All questions were answered to the patient satisfaction. Patient's left lower extremity edema and erythema has improved. Please continue compression wraps to the bilateral lower extremity while the patient is in house. No plan for additional treatment or surgical intervention from a podiatry perspective. WBC: 13.1 -> 11.7 Glu: 155 UA:7.6 -> 7.8 Medicine: On board, medical management Patient is cleared from podiatry perspective to discharge when cleared by medicine team. Patient can follow-up on an outpatient basis for continued lower extremity care. Podiatry will continue to follow but from a distance. Please reach out to Dr. Humphries for any question or concerns. Thank you for letting me be involved in patient care. (2) Pain in left leg: (3) Morbid obesity:
[2024-06-23 08:17] VITALS: BP 124/63; PULSE 78; RESP 18; TEMP 36.4; O2SAT 97
[2024-06-23] MEDS: Acetaminophen 325 MG Tablet 650 MG PO (08:24)
[2024-06-23] MEDS: Ascorbic Acid 500 MG Tablet 1000 MG PO (08:24)
[2024-06-23] MEDS: oxyCODONE 5 MG Tablet PO (08:24)
[2024-06-23] MEDS: Potassium Chloride Oral Tablet 20 MEQ PO (08:25)
[2024-06-23] MEDS: Zinc Sulfate 50 mg zinc (220 mg) ORAL capsule PO (10:27)
[2024-06-23] MEDS: dilTIAZem CD 240 MG Capsule PO (10:28)
[2024-06-23] MEDS: Lactobacillis Acidophilus 1 CAP PO (10:28)
[2024-06-23] MEDS: Cholecalciferol (Vit D3) 125 MCG CAPSULE (5,000 UNITS) PO (10:28)
[2024-06-23] MEDS: Lisinopril 40 MG Tablet PO (10:28)
[2024-06-23] MEDS: levoFLOXacin IV 750 MG/150 ML BAG 100 MG IV (10:29)
[2024-06-23] MEDS: Enoxaparin 150 MG/ML Syringe SC (10:36)
--- NOTE | 2024-06-23 11:03 | PCM.DC.SUM ---
Providers Date of Admission: 06/21/24 Date of Discharge: 06/23/24 Primary Care Physician: Dr. Guicho Floyd MD Consultations 06/22/24 09:47 Consult: Podiatry Routine Consulting Provider: Cole Humphries Reason for Consult: left foot cellulitis with acute gout flare and suspected gas on xray. EMERGENT Consult: No MD Notified: Yes Date Notified: 06/22/24 Time Notified: 09:40 Method of Notification: Text Reason For Visit: CELLULITIS LEFT FOOT & ACUTE GOUT FLARE Diagnosis Discharge Diagnosis (1) Gout flare: Status: Acute Code(s): M10.9 - Gout, unspecified Qualifiers: Gout etiology: unspecified cause Gout site: foot Laterality: left Qualified Code(s): M10.9 - Gout, unspecified (2) Pain in left leg: Status: Acute Code(s): M79.605 - Pain in left leg (3) Morbid obesity: Status: Chronic Code(s): E66.01 - Morbid (severe) obesity due to excess calories Plan #Acute gout flare up, with possible super imposed celllulitis of the left foot Left foot swollen and warm to touch. Minimal erythema. X-ray of the left foot showed soft tissue swelling around the ankle with soft tissue air overlying the region of the distal fibula due to suspected infection Will start IV Solu-Medrol; patient states IV Solu-Medrol is usually what works for his foot. Cannot be on colchicine due to him being on Cardizem Also started on IV vancomycin and Levaquin due to concerns about infection. MRI of the foot was ordered on admission. Will consult podiatry and defer to podiatry about need for MRI. IV morphine as needed #Benign essential hypertension: #A-fib: On Cardizem. On Coumadin also. INR was 1.6 on admission. Coumadin currently on hold. #History of GI bleed: Stable #Super morbid obesity: BMI is 63.2. Complicates acute care, expected recovery and prognosis. DVT prophylaxis: SCDs. Coumadin currently on hold. Will place patient on therapeutic Lovenox for now because Coumadin is on hold. Medications at Discharge Home Medications lisinopril 40 mg tablet 40 mg PO DAILY for blood pressure #90 tabs 07/18/20 acetaminophen 500 mg capsule 1,000 mg (2 x 500 mg) PO Q8H PRN PRN pain #1 cap 05/15/21 furosemide 40 mg tablet 40 mg PO DAILY hypertension #90 tabs 09/04/21 warfarin 5 mg tablet 7 mg PO FR for afib 09/05/21 metolazone 5 mg tablet See Rx Instructions .Route .COMPLEX PRN edema 05/29/23 potassium chloride 20 mEq tablet,extended release 20 meq PO BID supplement #180 tabs 06/04/23 diltiazem HCl 240 mg capsule,24 hr,extended release 240 mg PO DAILY Heart Rate Control #90 caps 11/27/23 diazepam 2 mg tablet 2 mg PO DAILY PRN anxiety 06/21/24 warfarin 10 mg tablet 8 mg PO SUMOTUWETHSA takes 8 mg all other days- for afib 06/21/24 prednisone 20 mg tablet 40 mg (2 x 20 mg) PO DAILY 5 days #10 tabs 06/23/24 Hospital Course Operations None Procedures None Summary of Care Provided Minutes Spent on Discharge: 55 Hospital Course: Patient is a 53-year-old male with a past medical history as outlined who was admitted to the ED on 06/21/2024 with complaint of left foot pain, redness and swelling. He did have a history of gout and has been on admission several times for this. His symptoms are started 2 to 3 days prior to admission with abrupt onset swelling of his left foot with some associated redness. Pain was worsened by weightbearing he could not ambulate very well. On admission there was concern about cellulitis because of his WBC of 13.6. He also had hyperuricemia with uric acid of 7.6 and CRP was also elevated. X-ray of the foot showed soft tissue swelling around the ankle with soft tissue air overlying the area of the distal fibula due to suspected infection. He was therefore admitted to be managed for acute gout flareup with concern for cellulitis. He was started on IV vancomycin and Zosyn. MRI of the foot was ordered. Podiatry was consulted and reviewed patient did not think this was likely an infectious etiology was likely due to his gout. Patient was started on IV Solu-Medrol. Within the day his symptoms improved and he felt much better and was able to weight-bear. Patient said it was steroids that usually work for his gout. Patient cannot be on colchicine or allopurinol due to interaction with his Coumadin and Cardizem. Patient felt much better and was able to ambulate with therapy. He was discharged home on 06/23/2024 on p.o. prednisone 40 mg daily for 5 days. Podiatry did not think that any further workup with MRI was required. He is to follow-up with his primary care doctor within 1 to 2 weeks. Patient was seen and examined prior to discharge. He felt much better and had no complaints. He had an uneventful night. Review of systems otherwise negative. Labs and vitals reviewed. Home meds reviewed and reconciled. Physical Exam Const alert, oriented x3 and no apparent distress Constitutional Narrative: super morbid obesity General Appearance: cooperative and comfortable Orientation / Consciousness: awake Exam Limitations: no limitations HEENT normocephalic, head/scalp atraumatic, hearing grossly normal bilaterally and moist oral mucous membranes Mouth: oral and palatal mucosa normal Eyes PERRL and EOMs intact bilaterally Neck no lymphadenopathy, supple and no JVD Lymph Lymphatic: no lymphadenopathy noted and no lymphedema noted Resp normal respiratory effort, normal air movement, no retractions, no use of accessory muscles and clear to auscultation bilaterally Cardio regular rate, regular rhythm, S1 normal heart sound, S2 normal heart sound and no murmurs GI normal to inspection, nondistended, normoactive bowel sounds, soft to palpation, non-tender and non-distended GI Narrative: obese abdomen Extremity Extremity Narrative: left foot pain and swelling have resolved Skin Skin Narrative: as under extremities Neuro oriented x3, CN's II-XII intact bilaterally, moves all extremities, no focal motor deficits, no sensory deficits noted and deep tendon reflexes 2+ bilaterally Sensorium / Orientation: awake, alert, oriented to person, oriented to place and oriented to time Speech: speech normal Motor Exam: strength 5/5 throughout and general weakness Psych thought process normal, cooperative and affect normal Appearance: appropriate Weight / BMI Weight Weight: 453 lb 4 oz Body Mass Index (BMI) 63.2 ABG / Lab / Microbiology Data 06/23/24 06:27 06/23/24 06:27 Laboratory: Laboratory Results - last 24 hr 06/22/24 06:11: C-React Prot High Sens 92.19 H 06/22/24 20:40: Vancomycin Trough 14.1 06/23/24 06:27: WBC 11.7 H, RBC 5.12, Hgb 13.8, Hct 43.0, MCV 84.0, MCH 27.0, MCHC 32.1, RDW Std Deviation 46.4 H, RDW Coeff of Tg 15.3 H, Plt Count 278, MPV 10.4, Immature Gran % (Auto) 0.700, Neut % (Auto) 92.0 H, Lymph % (Auto) 5.8 L, [place] % (Auto) 1.3, Eos % (Auto) 0.0, Baso % (Auto) 0.2, Absolute Neuts (auto) 10.7 H, Absolute Lymphs (auto) 0.67 L, Nucleated RBC % 0, Sodium 138, Potassium 4.6, Chloride 109 H, Carbon Dioxide 24.0, Anion Gap 5, BUN 16, Creatinine 0.76, Estim Creat Clear Calc 200.25, Est GFR (MDRD) Af Amer 136, Est GFR (MDRD) Non-Af 113, BUN/Creatinine Ratio 20.9 H, Glucose 155 H, Calcium 8.8 D/C Instructions Discharge Diet: Low fat / Low cholesterol Discharge Activity: Return to Normal Activity Weight Bearing Status: Weight bearing as tolerated Call your doctor if you observe: Fever of 101 or Higher, Shortness of breath, Dizziness, Swelling in the ankles, Chest pain and Uncontrolled pain Meaningful Use Info Meaningful Use Meaningful Use Diagnoses (Choose all that apply): None applicable Ischemic Stroke Statin Dosing Therapy Reference: STATIN DOSE THERAPY REFERENCE: * Patients > 75 years receive moderate or high dose statin therapy. * Patients 75 years or YOUNGER should receive HIGH intensity statin dose unless contraindicated. You will be required to document reason for non-treatment if statin daily dose does not meet guidelines. HIGH DOSE STATIN THERAPY DAILY Atorvastatin > than or = to 40 mg Rosuvastatin > than or = to 20 mg Amlodipine + Atorvastatin > than or = to 2.5/40 mg Ezetimibe + Simvastatin 10/80 mg Simvastatin 80mg Discharge Plan Admission Admit Date/Time: 06/21/24 21:42 Primary Reason for Your Visit: acute gout flare up Attending Provider: Rachel Glass Primary Care Provider: Guicho Floyd Consulting Providers: Justin White; Cole Humphries Instructions Patient Instructions: Obesity and Its Impact on Health, Treating Gout Attacks, Eating to Prevent Gout Discharge Orders/Prescriptions Prescriptions: New prednisone 20 mg tablet 40 mg PO DAILY 5 Days Qty: 10 0RF Continued lisinopril 40 mg tablet 40 mg PO DAILY Qty: 90 3RF metolazone 5 mg tablet See Rx Instructions .ROUTE .COMPLEX PRN (Reason: edema) Dose Instruction: TAKE ONE TABLET BY MOUTH EVERY WEEK FOR EDEMA Rx Instructions: TAKE ONE TABLET BY MOUTH EVERY WEEK FOR EDEMA PRN; diltiazem HCl 240 mg capsule,extended release 24 hr 240 mg PO DAILY Qty: 90 4RF acetaminophen 500 mg capsule 1,000 mg PO Q8H PRN PRN (Reason: pain) Qty: 1 0RF warfarin 10 mg tablet 8 mg PO [facility] Protocol: Dose Management Condition: Saturday Dose/Route: 10 mg Instruction: 1 x 10 mg tablet Condition: Saturday Dose/Route: 8 mg Instruction: 1 x 3 mg tablet, 1 x 5 mg tablet Condition: Saturday Dose/Route: 10 mg Instruction: 1 x 10 mg tablet Condition: Saturday Dose/Route: 8 mg Instruction: 1 x 3 mg tablet, 1 x 5 mg tablet Condition: Dose/Route: 10 mg Instruction: 1 x 10 mg tablet Condition: Saturday Dose/Route: 8 mg Instruction: 1 x 3 mg tablet, 1 x 5 mg tablet Condition: Saturday Dose/Route: 8 mg Instruction: 1 x 3 mg tablet, 1 x 5 mg tablet Protocol Text: Adjustment Start Date: Saturday10/23/21 INR Value: 2.2 INR Date: 10/23/21 Recheck Date: 11/06/21 diazepam 2 mg tablet 2 mg PO DAILY PRN (Reason: anxiety) furosemide 40 mg tablet 40 mg PO DAILY Qty: 90 3RF warfarin 5 mg tablet 7 mg PO FR Protocol: Dose Management Condition: Saturday Dose/Route: 10 mg Instruction: 1 x 10 mg tablet Condition: Saturday Dose/Route: 8 mg Instruction: 1 x 3 mg tablet, 1 x 5 mg tablet Condition: Saturday Dose/Route: 10 mg Instruction: 1 x 10 mg tablet Condition: Saturday Dose/Route: 8 mg Instruction: 1 x 3 mg tablet, 1 x 5 mg tablet Condition: Dose/Route: 10 mg Instruction: 1 x 10 mg tablet Condition: Saturday Dose/Route: 8 mg Instruction: 1 x 3 mg tablet, 1 x 5 mg tablet Condition: Saturday Dose/Route: 8 mg Instruction: 1 x 3 mg tablet, 1 x 5 mg tablet Protocol Text: Adjustment Start Date: Saturday10/23/21 INR Value: 2.2 INR Date: 10/23/21 Recheck Date: 11/06/21 potassium chloride 20 mEq tablet extended release 20 meq PO BID Qty: 180 3RF Referrals / Follow Up: Guicho Floyd MD [Primary Care Provider] - Within 1 Week Disposition Disposition (needs filled in before D/C Order can be placed): Home, Self Care Charges/Coding Visit Charges Inpatient E&M: 59937 Disch Hosp >30min
[2024-06-23 11:30] VITALS: BP 150/105; PULSE 65; RESP 19; TEMP 36.6; O2SAT 93
--- NOTE | 2024-06-23 11:32 | CASEMGMT ---
GAIL ESPINOZA into pt room, pt present. Pt denies any homegoing needs and thanks GAIL ESPINOZA for all information given.
== END 2024-06-23 12:11 | disposition home or self-care (01) | DRG 554 ==
LOC: ED 20:42 → MS3 21:12
PROVIDERS: Admitting Provider Internal Medicine; Emergency Provider Emergency Medicine; PCP Family Medicine; Visit Provider Student in an Organized Health Care Education/Training Program
DX: M10.9 Gout, unspecified (principal); L03.116 Cellulitis of left lower limb; Z68.45 Body mass index [BMI] 70 or greater, adult; I48.20 Chronic atrial fibrillation, unspecified; I11.0 Hypertensive heart disease with heart failure; I50.9 Heart failure, unspecified; E66.01 Morbid (severe) obesity due to excess calories; I87.2 Venous insufficiency (chronic) (peripheral); G47.33 Obstructive sleep apnea (adult) (pediatric); D72.829 Elevated white blood cell count, unspecified; Z79.01 Long term (current) use of anticoagulants; F41.1 Generalized anxiety disorder; Z99.89 Dependence on other enabling machines and devices; Z79.899 Other long term (current) drug therapy
CPT/HCPCS: 36415; 70030; 73630; 80048; 80202; 84550; 85025; 85610; 85652; 86140; 86141; 97162; 97166; 97803; 99283; J7040; A4216

== ENCOUNTER → 2025-02-02 | Outpatient (CLI) | payer OTHER, SELFPAY ==
[2025-02-02 12:29] LABS: Anion Gap 11 (5-15); BUN 14 mg/dL (4-19); BUN/Creat Ratio 15.4 RATIO (10-20); Carbon Dioxide 25.8 mmol/L (21.0-32.0); Chloride 103 mmol/L (98-108); Creatinine, Serum 0.88 mg/dL (0.70-1.20); EST Glomerular Filtration Rate 102 (>60); Glucose 104 mg/dL (70-99); Potassium 3.8 mmol/L (3.3-5.1); Sodium Level 140 mmol/L (133-145)
== END | disposition home or self-care (01) ==
LOC: LAB 10:45
PROVIDERS: PCP Family Medicine; Referring Provider Student in an Organized Health Care Education/Training Program; Visit Provider Student in an Organized Health Care Education/Training Program
DX: I10 Essential (primary) hypertension (principal)
CPT/HCPCS: 36415; 80048